=== PATIENT | female | born 1930 | race Caucasian/White ===

== ENCOUNTER → 2017-05-03 | Outpatient (CLI) | payer MEDICARE ==
[~2017-05-03] MED LIST: ALEVE220 M1 PO; AMLODIPINE BESY10 MG PO; AMLODIPINE BESYL5 MG PO; ASA325 PO; FLECAINIDE ACE100 MG PO; IBUPROFEN200 MG PO; LEVOTHYROXINE75 MCG PO; LOSARTAN POTASS25 MG PO; METOPROLOL SUCC50 MG PO; NORCO 7.5-3251 EACH PO; OMEPRAZOLE20 M1 PO; QUESTRAN PACKET4 GM PO; SUCRALFATE1 G/10 ML NG; ULTRAM50 MG PO; XARELTO10 MG PO
[2017-05-03 15:26] LABS: BILIRUBIN,URINE 1+ (NEGATIVE); CLARITY,URINE CLOUDY (CLEAR); KETONES,URINE NEGATIVE (NEGATIVE); LEUKOCYTE ESTERASE ,URINE 2+ (NEGATIVE); URINE UROBILINOGEN 1 mg/dL (0.2 - 1)
[2017-05-03 15:30] LABS: COLOR,URINE ORANGE (YELLOW); NITRITE,URINE POSITIVE (NEGATIVE); PROTEIN,URINE DIPSTICK TRACE (NEGATIVE)
[2017-05-03 15:32] LABS: BACTERIA,URINE MANY /HPF; EPITHELIAL CELLS,URINE FEW /LPF; WBC,URINE (MAN) 21-50 /HPF (0-5)
== END ==
LOC: LAB 14:50
PROVIDERS: ATTEND Internal Medicine
DX: N39.0 Urinary tract infection, site not specified (principal)
CPT/HCPCS: 81001; 87086; 87186

== ENCOUNTER → 2017-07-21 | Outpatient (CLI) | payer MEDICARE ==
[2017-07-21 14:43] LABS: BASOPHILS % 0.6 % (0.0-1.0); EOSINOPHILS # (AUTO) 0.1 (0.0-0.4); EOSINOPHILS % 1.7 % (0.0-6.0); HEMATOCRIT 36.8 % (34.2-44.1); HEMOGLOBIN 11.7 g/dL (12.0-16.0); LYMPHOCYTES # (AUTO) 1.2 (1.0-3.2); LYMPHOCYTES % 18.8 % (18.0-39.1); MEAN CORPUSCULAR HEMOGLOBIN 29.5 pg (28-32); MEAN CORPUSCULAR HGB CONC 31.8 g/dL (31-35); MEAN CORPUSCULAR VOLUME 92.7 fL (81-99); MONOCYTES # (AUTO) 0.5 (0.2-0.8); MONOCYTES % 7.6 % (4.4-11.3); NEUTROPHILS # (AUTO) 4.6 (2.1-6.9); PLATELET COUNT 178 x10e3/uL (140-360); RED BLOOD COUNT 3.97 x10e6/uL (3.6-5.1); RED CELL DISTRIBUTION WIDTH 13.8 % (11.7-14.4)
[2017-07-21 14:58] LABS: ALANINE AMINOTRANSFERASE 6 IU/L (0-55); ALBUMIN 3.6 g/dL (3.5-5.0); ALBUMIN/GLOBULIN RATIO 1.2 (0.8-2.0); ALKALINE PHOSPHATASE 62 IU/L (40-150); ANION GAP 8.8 mmol/L (8-16); BLOOD UREA NITROGEN 19 mg/dL (7-26); BUN/CREATININE RATIO 23 (6-25); CALCIUM 9.5 mg/dL (8.4-10.2); CARBON DIOXIDE 28 mmol/L (22-29); CHLORIDE 107 mmol/L (98-107); CHOL/HDL RATIO 2.6 (3.0-3.6); CHOLESTEROL 206 MD/DL (0-199); CREATININE, SERUM 0.81 mg/dL (0.57-1.11); EST GLOMERULAR FILTRATION RATE > 60 ML/MIN (60-); GLUCOSE 127 mg/dL (74-118); HDL CHOLESTEROL 78 MG/DL (40-60); LDL CHOLESTEROL 104 MG/DL (60-130); POTASSIUM 3.8 mmol/L (3.5-5.1); SODIUM 140 mmol/L (136-145); TRIGLYCERIDES 121 MG/DL (0-149)
[2017-07-21 15:17] LABS: THYROID STIMULATING HORMONE 0.404 uIU/mL (0.350-4.940)
== END ==
LOC: LAB 12:46
PROVIDERS: ATTEND Internal Medicine
DX: K21.9 Gastro-esophageal reflux disease without esophagitis (principal); E03.9 Hypothyroidism, unspecified; I10 Essential (primary) hypertension
CPT/HCPCS: 36415; 80053; 80061; 82270; 84443; 85025

== ENCOUNTER → 2017-08-16 | Outpatient (CLI) | payer MEDICARE ==
[2017-08-16 11:41] LABS: BILIRUBIN,URINE NEGATIVE (NEGATIVE); CLARITY,URINE CLEAR (CLEAR); COLOR,URINE YELLOW (YELLOW); KETONES,URINE NEGATIVE (NEGATIVE); LEUKOCYTE ESTERASE ,URINE 2+ (NEGATIVE); NITRITE,URINE NEGATIVE (NEGATIVE); PROTEIN,URINE DIPSTICK 1+ (NEGATIVE); URINE UROBILINOGEN 0.2 mg/dL (0.2 - 1)
== END ==
LOC: LAB 10:59
PROVIDERS: ATTEND Internal Medicine
DX: N39.0 Urinary tract infection, site not specified (principal)
CPT/HCPCS: 81003

== ENCOUNTER → 2017-09-13 | Outpatient (CLI) | payer MEDICARE ==
--- NOTE | 2017-09-13 13:07 | Diagnostic Imaging Report ---
PROCEDURE:ABDOMEN-1VIEW (KUB) TECHNIQUE:Supine AP abdomen INDICATION:Calculus of kidney COMPARISON:Patients [facility], DX, ABDOMEN-1VIEW (KUB), 11/25/2016, 11:09. FINDINGS: See conclusion. CONCLUSION: 1. No conspicuous calcifications overlying the kidneys or ureters. 2. Large volume of stool. Nonobstructive pattern. 3. Severe multilevel degenerative disc disease. Dictated by: Julio Esteves M.D. on 09/13/2017 at 13:09 Electronically approved by: Julio Esteves M.D. on 09/13/2017 at 13:09
== END ==
LOC: RAD 12:15
PROVIDERS: ATTEND Urology
DX: N20.0 Calculus of kidney (principal)
CPT/HCPCS: 74018

== ENCOUNTER → 2017-12-07 | Outpatient (CLI) | payer MEDICARE ==
--- NOTE | 2017-12-07 11:47 | Diagnostic Imaging Report ---
PROCEDURE:X-RAY ABDOMEN - KUB COMPARISON:Multiple prior abdominal radiographs, most recently 09/13/2017. INDICATIONS:CALCULUS OF KIDNEY FINDINGS: No dilated loops of bowel or abnormal air-fluid levels patterns. No evidence of pneumoperitoneum. No definite calcifications are seen overlying the urinary system. Small calcifications overlie the pelvis are stable and likely represent phleboliths. Severe multilevel degenerative changes of the lower lumbar spine, unchanged. CONCLUSION: Nonobstructive bowel gas pattern. No radiopaque renal or ureteral stones. Dictated by: Cain Delong M.D. on 12/07/2017 at 11:53 Electronically approved by: Cain Delong M.D. on 12/07/2017 at 11:53
== END ==
LOC: RAD 11:12
PROVIDERS: ATTEND Urology
DX: N20.0 Calculus of kidney (principal)
CPT/HCPCS: 74018

== ENCOUNTER → 2018-03-14 | Outpatient (CLI) | payer MEDICARE ==
--- NOTE | 2018-03-14 13:44 | Diagnostic Imaging Report ---
Exam: KUB. Clinical History: Calculus of kidney Comparison: CT scan April 28, 2013 Findings: Frontal view of the abdomen demonstrates a nonobstructive bowel gas pattern with moderate retained stool. There are no suspicious calcifications. No acute bone abnormality. Impression: No urinary tract calcifications are seen. Signed by: Dr. Remi Hurtado M.D. on 03/14/2018 1:41 PM
== END ==
LOC: RAD 12:54
PROVIDERS: ATTEND Urology
DX: N20.0 Calculus of kidney (principal)
CPT/HCPCS: 74018

== ENCOUNTER → 2018-10-05 | Outpatient (CLI) | payer MEDICARE ==
[2018-10-05 14:23] LABS: BASOPHILS % 0.6 % (0.0-1.0); EOSINOPHILS # (AUTO) 0.1 (0.0-0.4); EOSINOPHILS % 2.2 % (0.0-6.0); HEMATOCRIT 31.1 % (34.2-44.1); LYMPHOCYTES # (AUTO) 0.9 (1.0-3.2); LYMPHOCYTES % 17.5 % (18.0-39.1); MEAN CORPUSCULAR HEMOGLOBIN 29.4 pg (28-32); MEAN CORPUSCULAR HGB CONC 32.2 g/dL (31-35); MEAN CORPUSCULAR VOLUME 91.5 fL (81-99); MONOCYTES # (AUTO) 0.5 (0.2-0.8); MONOCYTES % 9.1 % (4.4-11.3); NEUTROPHILS # (AUTO) 3.5 (2.1-6.9); NEUTROPHILS % 69.8 % (38.7-80.0); PLATELET COUNT 223 x10e3/uL (140-360); RED CELL DISTRIBUTION WIDTH 21.3 % (11.7-14.4)
[2018-10-05 14:30] LABS: CLARITY,URINE SL CLOUDY (CLEAR); COLOR,URINE STRAW (YELLOW); NITRITE,URINE NEGATIVE (NEGATIVE); PROTEIN,URINE DIPSTICK 1+ (NEGATIVE); URINE UROBILINOGEN 0.2 mg/dL (0.2 - 1)
[2018-10-05 14:32] LABS: BILIRUBIN,URINE NEGATIVE (NEGATIVE); KETONES,URINE NEGATIVE (NEGATIVE)
[2018-10-05 14:46] LABS: ALANINE AMINOTRANSFERASE 11 IU/L (0-55); ALBUMIN 2.9 g/dL (3.5-5.0); ALKALINE PHOSPHATASE 82 IU/L (40-150); BLOOD UREA NITROGEN 13 mg/dL (7-26); BUN/CREATININE RATIO 17 (6-25); CALCIUM 9.5 mg/dL (8.4-10.2); CARBON DIOXIDE 26 mmol/L (22-29); CHLORIDE 102 mmol/L (98-107); CREATININE, SERUM 0.75 mg/dL (0.57-1.11); EST GLOMERULAR FILTRATION RATE > 60 ML/MIN (60-); GLUCOSE 108 mg/dL (74-118); SODIUM 135 mmol/L (136-145)
[2018-10-05 14:50] LABS: BACTERIA,URINE MANY /HPF; EPITHELIAL CELLS,URINE FEW /LPF; LEUKOCYTE ESTERASE ,URINE LARGE (NEGATIVE); RBC,URINE 0-5 /HPF (0-5); TRANSITIONAL EPI CELLS,URINE MODERATE; WBC,URINE (MAN) 21-50 /HPF (0-5)
[2018-10-05 15:07] LABS: FREE THYROXINE INDEX 3.5153 (1.4-3.8); THYROID STIMULATING HORMONE 0.287 uIU/mL (0.350-4.940)
--- NOTE | 2018-10-05 16:40 | Diagnostic Imaging Report ---
Exam: KUB; 2 views History: History of renal stones Comparison: 03/14/2018 Findings: Bowel gas pattern is nonspecific. No dilatation is seen. Moderate fecal material is present. No calcified renal stones are seen. Degenerative changes of the spine are moderate to severe. Impression: Nonspecific abdominal series. Signed by: Dr. Antoine Chatman DO on 10/05/2018 4:37 PM
== END ==
LOC: RAD 13:53
PROVIDERS: ATTEND Urology
DX: N20.0 Calculus of kidney (principal)
CPT/HCPCS: 36415; 74018; 80053; 81001; 84436; 84443; 84479; 85025

== ENCOUNTER 2018-11-04 20:22 | Emergency (ER) | payer MEDICARE, OTHER ==
[~2018-11-04] VITALS: Ht 160 cm; Wt 76.2 kg
--- OUTSIDE RECORDS SUMMARY | 2018-11-04 20:29 | XMS REPORT | Continuity of Care Document ---
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 [place] [place] ACUTE EMBOLISM AND THROMBOSIS OF LEFT FE Active [facility] OTHER PULMONARY EMBOLISM WITHOUT ACUTE C Active [facility] Medications Medication Details Route Status Patient Instructions Ordering Provider Order Date Source pantoprazole 40 mg oral enteric coated tablet 40 mg=1 tab, PO, Daily, 0 Refill(s) Active 10/22/2018 [facility] apixaban 5 mg oral tablet 5 mg=1 tab, PO, Q12H, # 60 tab, 2 Refill(s), Pharmacy: [facility] [id number] Active 10/22/2018 [facility] Eliquis 5 mg, 1 tab, Route: PO, Drug form: TAB, Q12H, Dosing Weight 59.091, kg, Start date: 10/21/18 21:00:00 CDT, Duration: 30 day, Stop date: 11/20/18 9:00:00 CDT, 0Notes: Same as: Eliquis No Longer Active 10/22/2018 [facility] Omeprazole 20 mg, Route: PO, Drug form: ECTAB, Daily, Dosing Weight 59.091, kg, Start date: 10/21/18 9:00:00 CDT, Duration: 30 day, Stop date: 11/19/18 9:00:00 CDT No Longer Active 10/21/2018 [facility] metoprolol extended release 50 mg, 1 tab, Route: PO, Drug form: ERTAB, Daily, Start date: 10/21/18 9:00:00 CDT, Duration: 30 day, Stop date: 11/19/18 9:00:00 CDT, 0Notes: (Same as: Toprol XL) May split tab, but do not crush. No Longer Active 10/21/2018 [facility] Docusate 100 mg, 1 cap, Route: PO, Drug form: CAP, BID, Dosing Weight 59.091, kg, Start date: 10/21/18 9:00:00 CDT, Duration: 30 day, Stop date: 11/19/18 17:00:00 CDT, 0Notes: (Same as: Colace) (Do Not Crush) No Longer Active 10/21/2018 [facility] Losartan 100 mg, 2 tab, Route: PO, Drug form: TAB, Daily, Dosing Weight 59.091, kg, Start date: 10/21/18 9:00:00 CDT, Duration: 30 day, Stop date: 11/19/18 9:00:00 CDT, 0Notes: (Same as: Cozaar) No Longer Active 10/21/2018 [facility] Hydralazine Hydrochloride 50 MG Oral Tablet 50 mg, 1 tab, Route: PO, Drug form: TAB, BID, Dosing Weight 59.091, kg, Start date: 10/21/18 9:00:00 CDT, Duration: 30 day, Stop date: 11/19/18 17:00:00 CDT, 0Notes: (Same as: Apresoline) May interfere w/enteral feedings Take With Food No Longer Active 10/21/2018 [facility] Protonix 40 mg, 1 tab, Route: PO, Drug form: ECTAB, Daily, Start date: 10/21/18 9:00:00 CDT, Duration: 30 day, Stop date: 11/19/18 9:00:00 CDT, 0Notes: Tablet should not be chewed or crushed. (Same as: Protonix) No Longer Active 10/21/2018 [facility] Thyroxine 100 microgram, 1 tab, Route: PO, Drug form: TAB, [id number], Dosing Weight 59.091, kg, Start date: 10/21/18 6:30:00 CDT, Duration: 30 day, Stop date: 11/19/18 6:30:00 CDT, 0Notes: Take 1 hour before or 2 hours after meal; Enteral feeds may interefere with the absorption of this medication. (Same as:Levothroid, Synthroid) No Longer Active 10/21/2018 [facility] Lovenox 60 mg, 0.6 mL, Route: SUB-Q, Drug form: INJ, [id number], Dosing Weight 59.091, kg, Start date: 10/21/18 6:00:00 CDT, Duration: 30 day, Stop date: 11/19/18 18:00:00 CDT, 0Notes: Nurse to ensure documentation of patient education per anticoagulation policy. (Same as: Lovenox) Inactive 10/21/2018 [facility] Dextrose 50% Syringe 25 gm, 50 mL, Route: IVP, Drug Form: INJ, Dosing Weight 59.091, kg, PRN, PRN Blood Glucose Results, Start date: 10/20/18 18:08:00 CDT, Duration: 30 day, Stop date: 11/19/18 18:07:00 CDT, 0 No Longer Active 10/20/2018 [facility] Glucagon 1 mg, Route: IM, Drug form: PDR/INJ, PRN, Dosing Weight 59.091, kg, PRN Blood Glucose Results, Start date: 10/20/18 18:08:00 CDT, Duration: 30 day, Stop date: 11/19/18 18:07:00 CDT, 0 No Longer Active 10/20/2018 [facility] Ondansetron 4 mg, 2 mL, Route: IVP, Drug form: INJ, Q8H, Dosing Weight 59.091, kg, PRN Nausea & Vomiting, Start date: 10/20/18 18:08:00 CDT, Duration: 30 day, Stop date: 11/19/18 18:07:00 CDT, 0Notes: (Same as: Zofran) MEDICATION WASTE Product Size: 4 mg Product Wasted: ___ mg No Longer Active 10/20/2018 [facility] Acetaminophen 650 mg, 2 tab, Route: PO, Drug form: TAB, Q4H, Dosing Weight 59.091, kg, PRN Pain 1-3/Temp > 100.4 F, Start date: 10/20/18 18:08:00 CDT, Duration: 30 day, Stop date: 11/19/18 18:07:00 CDT, 0Notes: Do not exceed 4 gm/day. (Same as: Tylenol) No Longer Active 10/20/2018 [facility] Lovenox 60 mg, 0.6 mL, Route: SUB-Q, Drug form: INJ, ONCE, Dosing Weight 59.091, kg, Priority: STAT, Start date: 10/20/18 17:28:00 CDT, Stop date: 10/20/18 17:28:00 CDT, 0Notes: Nurse to ensure documentation of patient education per anticoagulation policy. (Same as: Lovenox) Inactive 10/20/2018 [facility] tramadol hydrochloride 50 MG Oral Tablet 50 mg=1 tab, PO, Q6H, PRN Pain, X 5 day, # 20 tab, 0 Refill(s) Active 06/03/2018 [facility] Amoxicillin 50 MG/ML / Clavulanate 12.5 MG/ML Oral Suspension [Augmentin] 10 mL, PO, Q8H, # 90 mL, 0 Refill(s) No Longer Active 06/02/2018 [facility] acetaminophen 160 mg/5 mL oral suspension 640 mg=20 mL, PO, Q6H, PRN Pain Score 1-3, # 480 mL, 0 Refill(s) Active 06/02/2018 [facility] Amlodipine 2.5 mg, 1 tab, Route: PO, Drug form: TAB, Daily, Dosing Weight 80.364, kg, Start date: 05/31/18 14:54:00 HOST/HOSTESS HEAD, Duration: 30 day, Stop date: 06/30/18 9:00:00 CSTNotes: (Same as: Norvasc) No Longer Active 05/31/2018 [facility] Dextrose 50% Syringe 12.5 gm, 25 mL, Route: IVP, Drug Form: INJ, Dosing Weight 80.364, kg, PRN, PRN Blood Glucose Results, Start date: 05/31/18 8:16:00 HOST/HOSTESS HEAD, Duration: 30 day, Stop date: 06/30/18 8:15:00 HOST/HOSTESS HEAD No Longer Active 05/31/2018 [facility] Insulin Lispro 5 unit, 0.05 mL, Route: SUB-Q, Drug form: SOLN, Sliding Scale, Dosing Weight 80.364, kg, PRN Blood Glucose Results, Start date: 05/31/18 8:16:00 HOST/HOSTESS HEAD, Duration: 30 day, Stop date: 06/30/18 8:15:00 HOST/HOSTESS HEAD Notes: (Same as: Humalog ) Roll in palms of hands gently; Do not shake `vigorously. "Single Patient Use Only " WASTE: F/P - Black; E - Municipal Trash Bin Stable for 28 days at room temperature. Expires in days from Date No Longer Active 05/31/2018 [facility] Glucagon 1 mg, Route: IM, Drug form: PDR/INJ, PRN, Dosing Weight 80.364, kg, PRN Blood Glucose Results, Start date: 05/31/18 8:16:00 HOST/HOSTESS HEAD, Duration: 30 day, Stop date: 06/30/18 8:15:00 HOST/HOSTESS HEAD No Longer Active 05/31/2018 [facility] D5W 1,000 mL 1,000 mL, Rate: 75 ml/hr, Infuse over: 13.3 hr, Route: IV, Dosing Weight 80.364 kg, Total Volume: 1,000, Start date: 05/31/18 8:11:00 HOST/HOSTESS HEAD, Duration: 30 day, Stop date: 06/30/18 8:10:00 HOST/HOSTESS HEAD, 1.92, m2 Inactive 05/31/2018 [facility] guar gum oral powder (NutriSource) 4 gm, 1 pkt, Route: PO, Drug Form: PCKT, Dosing Weight 80.364, kg, TID, Start date: 05/30/18 17:00:00 HOST/HOSTESS HEAD, Duration: 30 day, Stop date: 06/29/18 13:00:00 CSTNotes: (Same as: Nutrisource Fiber) Dissolve packet in at least 4 oz (120 mL) of water and stir until completely dissolved before administering down the feeding tube. No Longer Active 05/30/2018 [facility] Prevacid 30 mg, 10 mL, Route: DHT, Drug form: SUSP, Daily, Start date: 05/30/18 12:00:00 HOST/HOSTESS HEAD, Duration: 30 day, Stop date: 06/29/18 9:00:00 CSTNotes: Take 1 hour before or 2 hours after meal; Expires in 14 days. Shake well before use. (Same as:Prevacid) Compounded Product - formulation not commercially available No Longer Active 05/30/2018 [facility] Omeprazole 20 mg, Route: DHT, Daily, Dosing Weight 80.364, kg, Start date: 05/30/18 9:00:00 HOST/HOSTESS HEAD, Duration: 30 day, Stop date: 06/28/18 9:00:00 HOST/HOSTESS HEAD Inactive 05/30/2018 [facility] potassium chloride 20 mEq oral tablet, extended release 40 mEq, 30 mL, Route: DHT, Drug form: LIQ, ONCE, Dosing Weight 80.364, kg, Start date: 05/30/18 8:31:00 HOST/HOSTESS HEAD, Stop date: 05/30/18 8:31:00 CSTNotes: (Same as: Potassium Chloride) Inactive 05/30/2018 [facility] Beneprotein 7 gm pkt 2 pkt, Route: T FEED, Drug Form: PWDR, Dosing Weight 80.364, kg, BID, Start date: 05/29/18 17:00:00 HOST/HOSTESS HEAD, Duration: 30 day, Stop date: 06/28/18 9:00:00 CSTNotes: (Same as: Beneprotein) No Longer Active 05/29/2018 [facility] metoprolol 50 mg oral tablet, extended release 50 mg=1 tab, PO, Daily, 0 Refill(s) Active 05/29/2018 [facility] potassium chloride 40 mEq, 30 mL, Route: PO, Drug form: LIQ, ONCE, Dosing Weight 80.364, kg, Start date: 05/29/18 9:18:00 HOST/HOSTESS HEAD, Stop date: 05/29/18 9:18:00 CSTNotes: (Same as: Potassium Chloride) Inactive 05/29/2018 [facility] potassium chloride 20 mEq oral tablet, extended release 40 mEq, 2 tab, Route: PO, Drug form: ERTAB, ONCE, Dosing Weight 80.364, kg, Start date: 05/29/18 8:19:00 HOST/HOSTESS HEAD, Stop date: 05/29/18 8:19:00 CSTNotes: (Same as: K- Dur 20) "Do Not Crush" Give with food and full glass of water For patients unable to swallow tablet, dissolve in one half glass of water. Allow about 2 minutes for the tablets to disintegrate. Stir before giving to prepare slurry an d administer. Please exclude Patients with feeding tube less than 14 [place] (Dobhoff, J-tube etc) and pediatric and patients. Inactive 05/29/2018 [facility] normal saline 0.9% IV 1,000 mL 1,000 mL, Rate: 50 ml/hr, Infuse over: 20 hr, Route: IV, Dosing Weight 80.364 kg, Total Volume: 1,000, Start date: 05/29/18 6:57:00 HOST/HOSTESS HEAD, Duration: 30 day, Stop date: 06/28/18 6:56:00 HOST/HOSTESS HEAD, 1.92, m2 No Longer Active 05/29/2018 [facility] Lopressor 25 mg, 1 tab, Route: PO, Drug form: TAB, BID, Start date: 05/28/18 21:00:00 HOST/HOSTESS HEAD, Duration: 30 day, Stop date: 06/27/18 9:00:00 CSTNotes: (Same as: Lopressor) No Longer Active 05/29/2018 [facility] PHOS-NaK 1 pkt, Route: DHT, Drug Form: PDR/REC, Dosing Weight 80.364, kg, TID-Before Meals, Start date: 05/28/18 11:30:00 HOST/HOSTESS HEAD, Duration: 30 day, Stop date: 06/27/18 7:30:00 CSTNotes: (Same as: Phos-NaK) Each 1.5 gm pkt has 250mg phosphorous. Mix w/2.5oz water and stir. No Longer Active 05/28/2018 [facility] Losartan 100 mg, 2 tab, Route: PO, Drug form: TAB, Daily, Dosing Weight 80.364, kg, Start date: 05/28/18 9:00:00 HOST/HOSTESS HEAD, Duration: 30 day, Stop date: 06/26/18 9:00:00 CSTNotes: (Same as: Cozaar) No Longer Active 05/28/2018 [facility] metoprolol extended release 50 mg, 1 tab, Route: PO, Drug form: ERTAB, Daily, Start date: 05/28/18 9:00:00 HOST/HOSTESS HEAD, Duration: 30 day, Stop date: 06/26/18 9:00:00 CSTNotes: (Same as: Toprol XL) May split tab, but do not crush. No Longer Active 05/28/2018 [facility] potassium phosphate 20 mmol, Route: DHT, ONCE, Dosing Weight 80.364, kg, Start date: 05/27/18 9:27:00 HOST/HOSTESS HEAD, Stop date: 05/27/18 9:27:00 HOST/HOSTESS HEAD Inactive 05/27/2018 [facility] Protonix 40 mg, 1 pkt, Route: PO, Drug form: GRAN/REC, Before Dinner, Dosing Weight 80.364, kg, Start date: 05/26/18 16:30:00 HOST/HOSTESS HEAD, Duration: 30 day, Stop date: 06/24/18 16:30:00 HOST/HOSTESS HEAD No Longer Active 05/26/2018 [facility] iodixanol 70 mL, Route: IVP, Drug Form: SOLN, Dosing Weight 80.364, kg, ONCALL, STAT, Start date: 05/26/18 16:12:00 HOST/HOSTESS HEAD, Duration: 1 doses or times, Stop date: 05/27/18 0:00:00 HOST/HOSTESS HEAD, Dose=2.2ml/kg, Max ijdc=182yd -- "To be infused by Radiology Staff ONLY"Notes: (Same as: Visipaque). WASTE: F/P - Black; E - Municipal Trash Bin No Longer Active 05/26/2018 [facility] Unasyn 3 gm, Route: IVPB, Drug form: PDR/INJ, [id number], Dosing Weight 80.364, kg, Priority: NOW, Start date: 05/26/18 15:01:00 HOST/HOSTESS HEAD, Duration: 30 day, Stop date: 06/25/18 8:00:00 CSTNotes: Dosing based on Ampicillin component (Same as: Unasyn) No Longer Active 05/26/2018 [facility] Unasyn 3 gm, Route: IVPB, [id number], Dosing Weight 80.364, kg, Start date: 05/26/18 14:00:00 HOST/HOSTESS HEAD, Duration: 30 day, Stop date: 06/25/18 2:00:00 HOST/HOSTESS HEAD Inactive 05/26/2018 [facility] Losartan 100 mg, 2 tab, Route: PO, Drug form: TAB, Daily, Dosing Weight 80.364, kg, Start date: 05/26/18 13:21:00 HOST/HOSTESS HEAD, Duration: 30 day, Stop date: 06/25/18 9:00:00 CSTNotes: (Same as: Cozaar) No Longer Active 05/26/2018 [facility] metoprolol extended release 50 mg, 1 tab, Route: PO, Drug form: ERTAB, Daily, Start date: 05/26/18 13:21:00 HOST/HOSTESS HEAD, Duration: 30 day, Stop date: 06/25/18 9:00:00 CSTNotes: (Same as: Toprol XL) No Longer Active 05/26/2018 [facility] Furosemide 20 mg, 2 mL, Route: IVP, Drug form: INJ, ONCE, Dosing Weight 80.364, kg, Start date: 05/26/18 13:11:00 HOST/HOSTESS HEAD, Stop date: 05/26/18 13:11:00 CSTNotes: (Same as: Lasix) Inactive 05/26/2018 [facility] Tylenol 650 mg, 20.3 mL, Route: PO, Drug form: LIQ, Q6H, Dosing Weight 80.364, kg, PRN Pain 1-3/Temp > 100.4 F, Start date: 05/26/18 9:00:00 HOST/HOSTESS HEAD, Duration: 30 day, Stop date: 06/25/18 8:59:00 CSTNotes: Max oqdzfldfdzvxo=1040tu/day (4 gm/day). (Same as: Tylenol) No Longer Active 05/26/2018 [facility] potassium phosphate-sodium phosphate 250 mg-280 mg-160 mg oral powder for reconstitution 2 pkt, Route: PO, Drug Form: PDR/REC, Dosing Weight 80.364, kg, Q8H, Start date: 05/25/18 16:00:00 HOST/HOSTESS HEAD, Duration: 2 day, Stop date: 05/27/18 8:00:00 CSTNotes: (Same as: Phos-NaK) Each 1.5 gm pkt has 250mg phosphorous. Mix w/2.5oz water and stir. No Longer Active 05/25/2018 [facility] glycerin adult rectal suppository 1 supp, Route: [place], Drug Form: SUPP, Dosing Weight 80.364, kg, ONCE, NOW, Start date: 05/25/18 10:36:00 HOST/HOSTESS HEAD, Stop date: 05/25/18 10:36:00 HOST/HOSTESS HEAD Inactive 05/25/2018 [facility] pantoprazole additive 80 mg + Sodium Chloride 0.9% IV 100 mL 100 mL, Rate: 10 ml/hr, Infuse over: 10 hr, Route: IVPB, Dosing Weight 80.364 kg, Total Volume: 100, Infuse at 8 mg/hr for 72 hrs for GI bleeding, Start date: 05/25/18 10:17:00 HOST/HOSTESS HEAD, Duration: 72 hr, Stop date: 05/28/18 10:16:00 HOST/HOSTESS HEAD, 1.92, m2 No Longer Active 05/25/2018 [facility] pantoprazole 80 mg, Route: IV, ONCE, Dosing Weight 80.364, kg, Start date: 05/25/18 10:16:00 HOST/HOSTESS HEAD, Stop date: 05/25/18 10:16:00 HOST/HOSTESS HEAD, > 40 kg; loading dose; Pediatric Dosing Inactive 05/25/2018 [facility] vancomycin + Sodium Chloride 0.9% IV 250 mL 1.25 gm, Route: IV, [id number], Dosing Weight 80.364, kg, Start date: 05/25/18 5:00:00 HOST/HOSTESS HEAD, Duration: 30 day, Stop date: 06/23/18 5:00:00 HOST/HOSTESS HEAD, ABX Indication: ED - Suspected SepsisNotes: TIME CRITICAL MEDICATION (Same As: Vancocin) Infusion rate 2001 mg: infuse over 2.5 hours For adult patients only: Round to nearest 250 mg per Medical Staff approval MEDICATION WASTE Product Size: 1000 mg Product Wasted: ___ mg No Longer Active 05/25/2018 [facility] cefepime 1 gm, Route: IVP, Drug form: INJ, [id number], Dosing Weight 80.364, kg, (CrCl >/=50 ml/min), Start date: 05/24/18 22:00:00 HOST/HOSTESS HEAD, Duration: 7 day, Stop date: 05/31/18 14:00:00 HOST/HOSTESS HEAD, ABX Indication: Skin/Soft Tissue InfectionNotes: (Same As: Maxipime) MEDICATION WASTE Product Size: 1000 mg Product Wasted: ___ mg No Longer Active 05/25/2018 [facility] vancomycin 1 gm, Route: IVPB, Drug form: INJ, [id number], Start date: 05/24/18 21:00:00 HOST/HOSTESS HEAD, Duration: 7 day, Stop date: 05/31/18 9:00:00 HOST/HOSTESS HEAD, ABX Indication: Surgical ProphylaxisNotes: TIME CRITICAL MEDICATION (Same As: Vancocin) Infusion rate 2001 mg: infuse over 2.5 hours For adult patients only: Round to nearest 250 mg per Medical Staff approval MEDICATION WASTE Product Size: 1000 mg Product Wasted: _0__ mg Inactive 05/25/2018 [facility] Vancomycin 1,000 mg, Route: IVPB, Drug form: INJ, [id number], Dosing Weight 80.364, kg, Start date: 05/24/18 20:00:00 HOST/HOSTESS HEAD, Duration: 7 day, Stop date: 05/31/18 8:00:00 HOST/HOSTESS HEAD, ABX Indication: Surgical Prophylaxis Inactive 05/25/2018 [facility] Sodium Chloride 0.9% (titrate) 250 mL 250 mL, Rate: To prime line and flush remaining blood products., Dosing Weight 80.364, kg, Route: IV, Total Volume: 250, Start Date: 05/24/18 17:08:00 HOST/HOSTESS HEAD, Duration: 30 day, Stop date: 06/23/18 17:07:00 HOST/HOSTESS HEAD, Replace Every: 24 hr No Longer Active 05/24/2018 [facility] Calcium Chloride 0.0014 MEQ/ML / Potassium Chloride 0.004 MEQ/ML / Sodium Chloride 0.103 MEQ/ML / Sodium Lactate 0.028 MEQ/ML Injectable Solution 500 mL, 500 ml/hr, Infuse Over: 1 hr, Route: IV, 500, Drug form: INJ, ONCE, Priority: STAT, Dosing Weight 80.364 kg, Start date: 05/24/18 13:17:00 HOST/HOSTESS HEAD, Stop date: 05/24/18 13:17:00 HOST/HOSTESS HEAD Inactive 05/24/2018 [facility] Isolyte S PH-7.4 (Bolus) IV 500 mL, 0 ml/hr, Infuse Over: 0 hr, Route: IV, 500, Drug form: SOLN, ONCE, Dosing Weight 80.364 kg, Start date: 05/24/18 13:10:00 HOST/HOSTESS HEAD, Stop date: 05/24/18 13:10:00 CSTNotes: (Same as: Isolyte S PH7.4) Inactive 05/24/2018 [facility] Albumin 25% intravenous solution (HC) 25 gm, 100 mL, Route: IV, Drug form: INJ, Q4Hnow, Dosing Weight 80.364, kg, Start date: 05/24/18 13:00:00 HOST/HOSTESS HEAD, Duration: 6 doses or times, Stop date: 05/25/18 10:00:00 CSTNotes: Lot #: Mfg: (Same as: Plasbumin-25) "blood product derivative" WASTE: F/P - Red; E -Red MEDICATION WASTE Product Size: 25 gm Product Wasted: _0__ gm No Longer Active 05/24/2018 [facility] tramadol hydrochloride 50 MG Oral Tablet 50 mg, 1 tab, Route: PO, Drug form: TAB, Q12H, Dosing Weight 80.364, kg, Start date: 05/24/18 12:34:00 HOST/HOSTESS HEAD, Duration: 2 day, Stop date: 05/26/18 9:00:00 HOST/HOSTESS HEAD No Longer Active 05/24/2018 [facility] Phenergan 12.5 mg, 0.5 mL, Route: IVPB, Drug form: INJ, ONCE, Dosing Weight 80.364, kg, Start date: 05/24/18 12:28:00 HOST/HOSTESS HEAD, Stop date: 05/24/18 12:28:00 CSTNotes: Do not give IV push. (Same as: Phenergan) Inactive 05/24/2018 [facility] Phenergan 12.5 mg, 0.5 mL, Route: IVPB, Drug form: INJ, Q4H, Dosing Weight 80.364, kg, PRN Nausea & Vomiting, Start date: 05/24/18 12:27:00 HOST/HOSTESS HEAD, Duration: 30 day, Stop date: 06/23/18 12:26:00 CSTNotes: Do not give IV push. (Same as: Phenergan) No Longer Active 05/24/2018 [facility] Thiamine 500 mg, 5 mL, Route: IVPB, Daily, Dosing Weight 80.364, kg, Priority: NOW, Start date: 05/24/18 10:18:00 HOST/HOSTESS HEAD, Duration: 5 doses or times, Stop date: 05/28/18 9:00:00 CSTNotes: (Same As: Vitamin B1) No Longer Active 05/24/2018 [facility] Acetaminophen 1,000 mg, 31.23 mL, Route: NG, Drug form: LIQ, Q6Hnow, Dosing Weight 80.364, kg, Start date: 05/24/18 9:00:00 HOST/HOSTESS HEAD, Duration: 2 day, Stop date: 05/26/18 3:00:00 CSTNotes: Max umahiubqabaxa=9723jz/day (4 gm/day). (Same as: Tylenol) Inactive 05/24/2018 [facility] sennosides, FCI 17.6 mg, 10 mL, Route: NG, Drug Form: SYRP, Dosing Weight 71.364, kg, Q12H, Start date: 05/24/18 9:00:00 HOST/HOSTESS HEAD, Duration: 30 day, Stop date: 06/22/18 21:00:00 CSTNotes: (Same as: Senokot) No Longer Active 05/24/2018 [facility] docusate 100 mg, 10 mL, Route: NG, Drug form: LIQ, Q12H, Dosing Weight 71.364, kg, Start date: 05/24/18 9:00:00 HOST/HOSTESS HEAD, Duration: 30 day, Stop date: 06/22/18 21:00:00 CSTNotes: (Same as: Colace) No Longer Active 05/24/2018 [facility] lansoprazole 30 mg, 10 mL, Route: NG, Drug form: SUSP, Daily, Dosing Weight 71.364, kg, Start date: 05/24/18 9:00:00 HOST/HOSTESS HEAD, Duration: 30 day, Stop date: 06/22/18 9:00:00 CSTNotes: Take 1 hour before or 2 hours after m eal; Expires in 14 days. Shake well before use. (Same as:Prevacid) Compounded Product - formulation not commercially available Inactive 05/24/2018 [facility] chlorhexidine gluconate 1.2 MG/ML Mouthwash 15 mL, Route: Swab Mouth, Q12H, Drug form: LIQ, Start date: 05/24/18 9:00:00 HOST/HOSTESS HEAD, Duration: 30 day, Stop date: 06/22/18 21:00:00 CSTNotes: (Same As: Peridex) Inactive 05/24/2018 [facility] Aspirin 81 MG Chewable Tablet 324 mg, 4 tab, Route: PO, Drug form: CHEWTAB, Daily, Dosing Weight 71.364, kg, Start date: 05/24/18 9:00:00 HOST/HOSTESS HEAD, Duration: 30 day, Stop date: 06/22/18 9:00:00 CSTNotes: Take with food. No Longer Active 05/24/2018 [facility] Calcium Gluconate 2,000 mg, 20 mL, Route: IVPB, ONCE, Dosing Weight 80.364, kg, Start date: 05/24/18 8:15:00 HOST/HOSTESS HEAD, Stop date: 05/24/18 8:15:00 CSTNotes: WASTE: F/P - Sink; E - Municipal Trash Bin Inactive 05/24/2018 [facility] Flagyl 500 mg, 100 mL, Route: IVPB, Drug form: INJ, [id number], Dosing Weight 80.364, kg, Priority: STAT, Start date: 05/24/18 8:03:00 HOST/HOSTESS HEAD, Duration: 7 day, Stop date: 05/31/18 0:03:00 HOST/HOSTESS HEAD, ABX Indication: Skin/Soft Tissue Infection No Longer Active 05/24/2018 [facility] 250 ML Albumin Human, FCI 50 MG/ML Injection [Albuked] 25 gm, 500 mL, Route: IV, Drug form: INJ, ONCE, Dosing Weight 80.364, kg, Start date: 05/24/18 8:02:00 HOST/HOSTESS HEAD, Stop date: 05/24/18 8:02:00 CSTNotes: LOT#: Mfg: (Same as: Albuminar) "blood product derivative" WASTE: F/P - Red; E -Red MEDICATION WASTE Product Size: 25 gm Product Wasted: _0__ gm Inactive 05/24/2018 [facility] cefepime 1 gm, Route: IVP, Drug form: INJ, [id number], Dosing Weight 80.364, kg, (CrCl >/=50 ml/min), Start date: 05/24/18 8:00:00 HOST/HOSTESS HEAD, Duration: 7 day, Stop date: 05/31/18 2:00:00 HOST/HOSTESS HEAD, ABX Indication: Skin/Soft Tissue InfectionNotes: (Same As: Maxipime) MEDICATION WASTE Product Size: 1000 mg Product Wasted: _0__ mg Inactive 05/24/2018 [facility] Bacitracin 1 appl, Route: TOP, Q8H, Drug form: OINT, Start date: 05/24/18 8:00:00 HOST/HOSTESS HEAD, Duration: 30 day, Stop date: 06/23/18 0:00:00 HOST/HOSTESS HEAD No Longer Active 05/24/2018 [facility] Synthroid 100 microgram, 1 tab, Route: PO, Drug form: TAB, [id number], Dosing Weight 80.364, kg, Start date: 05/24/18 7:49:00 HOST/HOSTESS HEAD, Duration: 30 day, Stop date: 06/23/18 6:30:00 CSTNotes: Take 1 hour before or 2 hours after meal; Enteral feeds may interefere with the absorption of this medication. (Same as:Levothroid, Synthroid) No Longer Active 05/24/2018 [facility] lansoprazole 30 mg, 10 mL, Route: NG, Drug form: SUSP, Before Breakfast, Dosing Weight 71.364, kg, Start date: 05/24/18 7:30:00 HOST/HOSTESS HEAD, Duration: 30 day, Stop date: 06/22/18 7:30:00 CSTNotes: Take 1 hour before or 2 hours after meal; Expires in 14 days. Shake well before use. (Same as:Prevacid) Compounded Product - formulation not commercially available No Longer Active 05/24/2018 [facility] Vancomycin 1.75 gm, Route: IV, ONCE, Dosing Weight 80.364, kg, Start date: 05/24/18 7:18:00 HOST/HOSTESS HEAD, Stop date: 05/24/18 7:18:00 HOST/HOSTESS HEAD, ABX Indication: Surgical ProphylaxisNotes: TIME CRITICAL MEDICATION (Same As: Vanco nithin) Infusion rate 2001 mg: infuse over 2.5 hours For adult patients only: Round to nearest 250 mg per Medical Staff approval MEDICATION WASTE Product Size: 1000 mg Product Wasted: _250__ mg Inactive 05/24/2018 [facility] Vancomycin 1.5 gm, Route: IV, ONCE, Dosing Weight 80.364, kg, Start date: 05/24/18 7:16:00 HOST/HOSTESS HEAD, Stop date: 05/24/18 7:16:00 HOST/HOSTESS HEAD, ABX Indication: Surgical Prophylaxis Inactive 05/24/2018 [facility] Norepinephrine 8 mg, 8 mL, Rate: Titrate, Start Dose: 5 microgram/min, Titration: 2 microgram/min every 2-5 minutes, Goal(s): MAP >=65 mmHg, Max Dose: 70 microgram/min, Route: IV, Dosing Weight 80.364 kg, Total Vol ume: 250, Start date: 05/24/18 6:06:00 HOST/HOSTESS HEAD, Duratio...Notes: Not for direct administration - DILUTE. Protect from light. (Same as:Levophed). Administer by either central venous catheter or peripherally-inserted central catheter (PICC) line. No Longer Active 05/24/2018 [facility] Acetaminophen 1,000 mg, 31.23 mL, Route: NG, Drug form: LIQ, Q6H, Dosing Weight 80.364, kg, Start date: 05/24/18 6:00:00 HOST/HOSTESS HEAD, Duration: 2 day, Stop date: 05/26/18 0:00:00 CSTNotes: Max ilmsaauptjaly=[id number]/day (4 gm/day). (Same as: Tylenol) Inactive 05/24/2018 [facility] tramadol hydrochloride 50 MG Oral Tablet 50 mg, 1 tab, Route: PO, Drug form: TAB, Q6H, Dosing Weight 80.364, kg, Start date: 05/24/18 6:00:00 HOST/HOSTESS HEAD, Duration: 2 day, Stop date: 05/26/18 0:00:00 CSTNotes: Not to exceed 400mg/day. (Same As: Ultram) Inactive 05/24/2018 [facility] heparin sodium, porcine 2500 UNT/ML Injectable Solution 5,000 unit, 1 mL, Route: SUB-Q, Drug form: INJ, Q8H, Dosing Weight 71.364, kg, Start date: 05/24/18 6:00:00 HOST/HOSTESS HEAD, Duration: 30 day, Stop date: 06/23/18 0:00:00 CSTNotes: porcine heparin No Longer Active 05/24/2018 [facility] Vancomycin 1.25 gm, 250 mL, Route: IV, Drug form: INJ, [id number], Dosing Weight 80.364, kg, Start date: 05/24/18 5:00:00 HOST/HOSTESS HEAD, Duration: 30 day, Stop date: 06/22/18 5:00:00 HOST/HOSTESS HEAD, ABX Indication: ED - Suspected SepsisN otes: TIME CRITICAL MEDICATION Same as: Vancocin-NS (premixed) Infusion rate 2001 mg: infuse over 2.5 hours Inactive 05/24/2018 [facility] Calcium Chloride 0.0014 MEQ/ML / Potassium Chloride 0.004 MEQ/ML / Sodium Chloride 0.103 MEQ/ML / Sodium Lactate 0.028 MEQ/ML Injectable Solution 500 mL, 500 ml/hr, Infuse Over: 1 hr, Route: IV, ONCE, Priority: STAT, Dosing Weight 80.364 kg, Start date: 05/24/18 4:43:00 HOST/HOSTESS HEAD, Stop date: 05/24/18 4:43:00 HOST/HOSTESS HEAD Inactive 05/24/2018 [facility] Zofran 4 mg, 2 mL, Route: IVP, Drug form: INJ, Q8H, Dosing Weight 80.364, kg, PRN Nausea, Start date: 05/24/18 3:42:00 HOST/HOSTESS HEAD, Duration: 30 day, Stop date: 06/23/18 3:41:00 CSTNotes: (Same as: Zofran) MEDICATION WASTE Product Size: 4 mg Product Wasted: ___ mg No Longer Active 05/24/2018 [facility] Calcium Chloride 0.0014 MEQ/ML / Potassium Chloride 0.004 MEQ/ML / Sodium Chloride 0.103 MEQ/ML / Sodium Lactate 0.028 MEQ/ML Injectable Solution 500 mL, 500 ml/hr, Infuse Over: 1 hr, Route: IV, ONCE, Priority: STAT, Dosing Weight 80.364 kg, Start date: 05/24/18 1:19:00 HOST/HOSTESS HEAD, Stop date: 05/24/18 1:19:00 HOST/HOSTESS HEAD Inactive 05/24/2018 [facility] Oxycodone Hydrochloride 1 MG/ML Oral Solution 10 mg, 10 mL, Route: PO, Drug form: LIQ, Q6H, Dosing Weight 80.364, kg, PRN Pain Score 7- 10, Start date: 05/24/18 0:15:00 HOST/HOSTESS HEAD, Duration: 30 day, Stop date: 06/23/18 0:14:00 CSTNotes: (Same as: 'Roxicodone) No Longer Active 05/24/2018 [facility] tramadol hydrochloride 50 MG Oral Tablet 50 mg, 1 tab, Route: PO, Drug form: TAB, Q6H, Dosing Weight 80.364, kg, PRN Pain Score 1-3, Start date: 05/24/18 0:15:00 HOST/HOSTESS HEAD, Duration: 30 day, Stop date: 06/23/18 0:14:00 HOST/HOSTESS HEAD No Longer Active 05/24/2018 [facility] Calcium Gluconate 1 gm, 10 mL, Route: IVPB, PRN, Dosing Weight 80.364, kg, PRN Abnormal Lab Result, Start date: 05/24/18 0:10:00 HOST/HOSTESS HEAD, Duration: 30 day, Stop date: 06/23/18 0:09:00 HOST/HOSTESS HEAD, FOR ICU USE ONLYNotes: WASTE: F/P - Sink; E - Municipal Trash Bin No Longer Active 05/24/2018 [facility] Magnesium Oxide 800 mg, 2 tab, Route: PO, Drug form: TAB, PRN, Dosing Weight 80.364, kg, PRN Abnormal Lab Result, FOR ICU USE ONLY, Start date: 05/24/18 0:10:00 HOST/HOSTESS HEAD, Duration: 30 day, Stop date: 06/23/18 0:09:00 HOST/HOSTESS HEAD Notes: (Same as: Mag-Ox 400) Magnesium oxide 231re=132ot elemental magnesium Dose=____mg magnesium oxide (___mg elemental magnesium) No Longer Active 05/24/2018 [facility] Magnesium Sulfate 2 gm, 50 mL, Route: IVPB, Drug form: INJ, PRN, Dosing Weight 80.364, kg, PRN Abnormal Lab Result, Start date: 05/24/18 0:10:00 HOST/HOSTESS HEAD, Duration: 30 day, Stop date: 06/23/18 0:09:00 HOST/HOSTESS HEAD, FOR ICU USE ONLYNotes: WASTE: F/P - Sink; E - Municipal Trash Bin No Longer Active 05/24/2018 [facility] Potassium Chloride 10 mEq, 50 mL, Route: IVPB, Drug form: INJ, PRN, Dosing Weight 80.364, kg, PRN Abnormal Lab Result, Via peripheral line, Start date: 05/24/18 0:10:00 HOST/HOSTESS HEAD, Duration: 30 day, Stop date: 06/23/18 0:09:00 HOST/HOSTESS HEAD, FOR ICU USE ONLYNotes: (Same as: KCL) Infuse over 2 hours. No Longer Active 05/24/2018 [facility] Calcium Carbonate 500 MG Chewable Tablet 500 mg, 1 tab, Route: PO, Drug form: CHEWTAB, PRN, Dosing Weight 80.364, kg, PRN Abnormal Lab Result, FOR ICU USE ONLY, Start date: 05/24/18 0:10:00 HOST/HOSTESS HEAD, Duration: 30 day, Stop date: 06/23/18 0:09:00 CSTNotes: (Same As: Tums) Calcium Carbonate 500 if=112 mg elemental calcium Dose= mg calcium carbonate ( mg elemental calcium) No Longer Active 05/24/2018 [facility] sodium phosphate 15 mmol, 5 mL, Route: IVPB, PRN, Dosing Weight 80.364, kg, PRN Abnormal Lab Result, Start date: 05/24/18 0:10:00 HOST/HOSTESS HEAD, Duration: 30 day, Stop date: 06/23/18 0:09:00 HOST/HOSTESS HEAD, FOR ICU USE ONLYNotes: Infuse over 4 hour. Do not infuse phosphorous concurrently in the same line as TPN or IVF that contains calcium. For double lumen central lines, phosphorous may be infused in a separate lumen from TPN. No Longer Active 05/24/2018 [facility] potassium phosphate 30 mmol, 10 mL, Route: IVPB, PRN, Dosing Weight 80.364, kg, PRN Abnormal Lab Result, Start date: 05/24/18 0:10:00 HOST/HOSTESS HEAD, Duration: 30 day, Stop date: 06/23/18 0:09:00 HOST/HOSTESS HEAD, FOR ICU USE ONLYNotes: (Same as: K Phosphate.) Do not infuse phosphorous concurrently in the same line as TPN or IVF that contains calcium. For double lumen central lines, phosphorous may be infused in a separate lumen from TPN. 1 mMol phoshate has 1.47 mEq potassium Infuse over 4 hours No Longer Active 05/24/2018 [facility] potassium phosphate-sodium phosphate 250 mg-280 mg-160 mg oral powder for reconstitution 2 pkt, Route: PO, Drug Form: PDR/REC, Dosing Weight 80.364, kg, PRN, PRN Abnormal Lab Result, FOR ICU USE ONLY, Start date: 05/24/18 0:10:00 HOST/HOSTESS HEAD, Duration: 30 day, Stop date: 06/23/18 0:09:00 CSTNotes: (Same as: Phos-NaK) Each 1.5 gm pkt has 250mg phosphorous. Mix w/2.5oz water and stir. No Longer Active 05/24/2018 [facility] ocular lubricant 1 appl, Route: BOTH EYES, Q6H, Drug form: OINT, Start date: 05/24/18 0:00:00 HOST/HOSTESS HEAD, Duration: 30 day, Stop date: 06/22/18 18:00:00 CSTNotes: (Same as: Lacri-Lube, Puralube, Duratears Naturale, Artifici al Tears, and Tears Again ) Inactive 05/24/2018 [facility] Calcium Chloride 0.0014 MEQ/ML / Potassium Chloride 0.004 MEQ/ML / Sodium Chloride 0.103 MEQ/ML / Sodium Lactate 0.028 MEQ/ML Injectable Solution 500 mL, 500 ml/hr, Infuse Over: 1 hr, Route: IV, 500, Drug form: INJ, ONCE, Priority: STAT, Dosing Weight 80.364 kg, Start date: 05/23/18 23:48:00 HOST/HOSTESS HEAD, Stop date: 05/23/18 23:48:00 HOST/HOSTESS HEAD Inactive 05/24/2018 [facility] metoprolol extended release 50 mg, PO, Daily, 0 Refill(s) No Longer Active 05/24/2018 [facility] Dextrose 50% Syringe 12.5 gm, 25 mL, Route: IVP, Drug Form: INJ, Dosing Weight 80.364, kg, PRN, PRN Blood Glucose Results, Start date: 05/23/18 23:16:00 HOST/HOSTESS HEAD, Duration: 30 day, Stop date: 06/22/18 23:15:00 HOST/HOSTESS HEAD Inactive 05/24/2018 [facility] Insulin Lispro 2 unit, 0.02 mL, Route: SUB-Q, Drug form: SOLN, Sliding Scale, Dosing Weight 80.364, kg, PRN Blood Glucose Results, Start date: 05/23/18 23:16:00 HOST/HOSTESS HEAD, Duration: 30 day, Stop date: 06/22/18 23:15:00 C STNotes: (Same as: Humalog ) Roll in palms of hands gently; Do not shake `vigorously. "Single Patient Use Only " WASTE: F/P - Black; E - Municipal Trash Bin Stable for 28 days at room temperature. Expires in days from Date Inactive 05/24/2018 [facility] Glucagon 1 mg, Route: IM, Drug form: PDR/INJ, PRN, Dosing Weight 80.364, kg, PRN Blood Glucose Results, Start date: 05/23/18 23:16:00 HOST/HOSTESS HEAD, Duration: 30 day, Stop date: 06/22/18 23:15:00 HOST/HOSTESS HEAD Inactive 05/24/2018 [facility] chlorhexidine gluconate 1.2 MG/ML Mouthwash 15 mL, Route: Swab Mouth, PRN, Drug form: LIQ, PRN Other -See Comment, Start date: 05/23/18 23:01:00 HOST/HOSTESS HEAD, Duration: 30 day, Stop date: 06/22/18 23:00:00 CSTNotes: (Same As: Peridex) No Longer Active 05/24/2018 [facility] Aspirin 300 MG Rectal Suppository 300 mg, 1 supp, Route: [place], Drug form: SUPP, ONCE, Dosing Weight 71.364, kg, Priority: NOW, Start date: 05/23/18 22:52:00 HOST/HOSTESS HEAD, Stop date: 05/23/18 22:52:00 CSTNotes: Refrigerate. Inactive 05/24/2018 [facility] propofol (ANES) Route: IV, Drug form: INJ, ONCE, Stop date: 05/23/18 22:39:00 HOST/HOSTESS HEAD Inactive 05/24/2018 [facility] ondansetron (ANES) Route: IV, Drug form: INJ, ONCE, Stop date: 05/23/18 21:42:00 HOST/HOSTESS HEAD Inactive 05/24/2018 [facility] vasopressin (ANES) Route: IV, Drug form: INJ, ONCE, Stop date: 05/23/18 18:55:00 HOST/HOSTESS HEAD Inactive 05/24/2018 [facility] fentaNYL (ANES) Route: IV, Drug form: INJ, ONCE, Stop date: 05/23/18 18:55:00 HOST/HOSTESS HEAD Inactive 05/24/2018 [facility] ceFAZolin (ANES) Route: IV, Drug form: INJ, ONCE, Stop date: 05/23/18 18:00:00 HOST/HOSTESS HEAD Inactive 05/24/2018 [facility] norepinephrine (ANES) Route: IV, Drug form: INJ, ONCE, Stop date: 05/23/18 17:20:00 HOST/HOSTESS HEAD Inactive 05/23/2018 [facility] Insulin Lispro 3 unit, 0.03 mL, Route: SUB-Q, Drug form: SOLN, Sliding Scale, Dosing Weight 71.364, kg, PRN Blood Glucose Results, Start date: 05/23/18 17:01:00 HOST/HOSTESS HEAD, Duration: 30 day, Stop date: 06/22/18 17:00:00 C STNotes: (Same as: Humalog ) Roll in palms of hands gently; Do not shake `vigorously. "Single Patient Use Only " WASTE: F/P - Black; E - Municipal Trash Bin Stable for 28 days at room temperature. Expires in days from Date No Longer Active 05/23/2018 [facility] Glucagon 1 mg, Route: IM, Drug form: PDR/INJ, PRN, Dosing Weight 71.364, kg, PRN Blood Glucose Results, Start date: 05/23/18 17:01:00 HOST/HOSTESS HEAD, Duration: 30 day, Stop date: 06/22/18 17:00:00 HOST/HOSTESS HEAD No Longer Active 05/23/2018 [facility] Dextrose 50% Syringe 25 gm, 50 mL, Route: IVP, Drug Form: INJ, Dosing Weight 71.364, kg, PRN, PRN Blood Glucose Results, Start date: 05/23/18 17:01:00 HOST/HOSTESS HEAD, Duration: 30 day, Stop date: 06/22/18 17:00:00 HOST/HOSTESS HEAD No Longer Active 05/23/2018 [facility] chlorhexidine gluconate 1.2 MG/ML Mouthwash [Peridex] 15 mL, Route: Swab Mouth, BID, Drug form: LIQ, Start date: 05/23/18 17:00:00 HOST/HOSTESS HEAD, Duration: 30 day, Stop date: 06/22/18 9:00:00 CSTNotes: (Same As: Peridex) No Longer Active 05/23/2018 [facility] Unasyn 3 gm, Route: IVPB, Drug form: PDR/INJ, ABXQ6H, Dosing Weight 71.364, kg, Start date: 05/23/18 17:00:00 HOST/HOSTESS HEAD, Duration: 30 day, Stop date: 06/22/18 13:00:00 CSTNotes: Dosing based on Ampicillin component (Same as: Unasyn) No Longer Active 05/23/2018 [facility] Albuterol 0.83 MG/ML Inhalant Solution 2.49 mg, 3 mL, Route: NEB, Drug form: SOLN, PRN, Dosing Weight 71.364, kg, PRN Respiratory Pathway, Start date: 05/23/18 16:42:00 HOST/HOSTESS HEAD, Duration: 30 day, Stop date: 06/22/18 16:41:00 CSTNotes: SEE RT DOCUMENTATION (Same as: Proventil) No Longer Active 05/23/2018 [facility] Labetalol 20 mg, 4 mL, Route: IV, Drug form: INJ, Q6H, Dosing Weight 71.364, kg, PRN Other -See Comment, Start date: 05/23/18 16:26:00 HOST/HOSTESS HEAD, Duration: 30 day, Stop date: 06/22/18 16:25:00 CSTNotes: (Same as: Normo dyne, Trandate) Push over 2 minutes Give bolus over 2-3 minutes. No Longer Active 05/23/2018 [facility] Hydralazine 20 mg, 1 mL, Route: IV, Drug form: INJ, Q6H, Dosing Weight 71.364, kg, PRN Other -See Comment, Start date: 05/23/18 16:26:00 HOST/HOSTESS HEAD, Duration: 30 day, Stop date: 06/22/18 16:25:00 CSTNotes: (Same as: Ap resoline) Push over 5 minutes No Longer Active 05/23/2018 [facility] Aspirin 325 mg, 1 tab, Route: [place], Drug form: TAB, ONCE, Dosing Weight 71.364, kg, Start date: 05/23/18 16:26:00 HOST/HOSTESS HEAD, Stop date: 05/23/18 16:26:00 CSTNotes: Take with food. No Longer Active 05/23/2018 [facility] Lactated Ringers IV 1,000 mL 1,000 mL, Rate: 65 ml/hr, Infuse over: 15.4 hr, Route: IV, Dosing Weight 71.364 kg, Total Volume: 1,000, Start date: 05/23/18 16:26:00 HOST/HOSTESS HEAD, Duration: 30 day, Stop date: 06/22/18 16:25:00 HOST/HOSTESS HEAD, 1.8, m2 No Longer Active 05/23/2018 [facility] Saline Flush 0.9% 10 ml, Route: IVP, Drug Form: INJ, Dosing Weight 71.364, kg, PRN, PRN Line Flush, Start date: 05/23/18 16:26:00 HOST/HOSTESS HEAD, Duration: 30 day, Stop date: 06/22/18 16:25:00 CSTNotes: Same as: BD Posiflush Sterile No Longer Active 05/23/2018 [facility] Metoprolol 5 mg, 5 mL, Route: IVP, Drug form: INJ, Q6H, Dosing Weight 71.364, kg, PRN Other -See Comment, Start date: 05/23/18 16:26:00 HOST/HOSTESS HEAD, Duration: 30 day, Stop date: 06/30/18 10:23:00 CSTNotes: (Same as: Lo pressor) Push over 2 minutes No Longer Active 05/23/2018 [facility] norepinephrine (ANES) Route: IV, Drug form: INJ, ONCE, Stop date: 05/23/18 12:09:00 HOST/HOSTESS HEAD Inactive 05/23/2018 [facility] ePHEDrine (ANES) Route: IV, Drug form: INJ, ONCE, Stop date: 05/23/18 9:59:00 HOST/HOSTESS HEAD Inactive 05/23/2018 [facility] acetaminophen (ANES) 10 mg Route: IV, Drug form: INJ, Start date: 05/23/18 9:36:00 HOST/HOSTESS HEAD, Stop date: 05/23/18 10:36:00 HOST/HOSTESS HEAD Inactive 05/23/2018 [facility] ceFAZolin (ANES) Route: IV, Drug form: INJ, ONCE, Stop date: 05/23/18 9:04:00 HOST/HOSTESS HEAD Inactive 05/23/2018 [facility] fentaNYL (ANES) Route: IV, Drug form: INJ, ONCE, Stop date: 05/23/18 8:54:00 HOST/HOSTESS HEAD Inactive 05/23/2018 [facility] rocuronium (ANES) Route: IV, Drug form: INJ, ONCE, Stop date: 05/23/18 8:54:00 HOST/HOSTESS HEAD Inactive 05/23/2018 [facility] lidocaine (ANES) Route: IV, Drug form: INJ, ONCE, Stop date: 05/23/18 8:54:00 HOST/HOSTESS HEAD Inactive 05/23/2018 [facility] midazolam (ANES) Route: IV, Drug form: SOLN, ONCE, Stop date: 05/23/18 8:54:00 HOST/HOSTESS HEAD Inactive 05/23/2018 [facility] propofol (ANES) Route: IV, Drug form: INJ, ONCE, Stop date: 05/23/18 8:54:00 HOST/HOSTESS HEAD Inactive 05/23/2018 [facility] EPINEPHrine (ANES) Route: IV, Drug form: INJ, ONCE, Stop date: 05/23/18 8:44:00 HOST/HOSTESS HEAD Inactive 05/23/2018 [facility] norepinephrine ([facility]) 10 microgram Route: IV, Drug form: INJ, Start date: 05/23/18 8:07:00 HOST/HOSTESS HEAD, Stop date: 05/23/18 9:07:00 HOST/HOSTESS HEAD Inactive 05/23/2018 [facility] Isolyte S PH 7.4 (ANES) 1000 mL Route: IV, Total Volume: 1,000, Start date: 05/23/18 8:00:00 HOST/HOSTESS HEAD, Stop date: 05/23/18 9:00:00 HOST/HOSTESS HEAD Inactive 05/23/2018 [facility] Lactated Ringers Injection IV (ANES) 1000 mL Route: IV, Total Volume: 1,000, Start date: 05/23/18 7:34:00 HOST/HOSTESS HEAD, Stop date: 05/23/18 8:34:00 HOST/HOSTESS HEAD Inactive 05/23/2018 [facility] omeprazole 20 mg oral enteric coated tablet 20 mg=1 tab, PO, Daily, # 30 tab, 3 Refill(s) Active 05/17/2018 [facility] metoprolol tartrate 50 mg oral tablet 50 mg=1 tab, PO, Daily, 0 Refill(s) No Longer Active 05/17/2018 [facility] levothyroxine 100 mcg (0.1 mg) oral tablet 100 microgram=1 tab, PO, Daily, # 90 tab, 1 Refill(s) Active 05/17/2018 [facility] Aspirin 81 MG Enteric Coated Tablet 81 mg=1 tab, PO, Daily, # 90 tab, 3 Refill(s) Active 05/17/2018 [facility] losartan 100 mg oral tablet 100 mg=1 tab, PO, Daily, # 90 tab, 3 Refill(s) Active 05/17/2018 [facility] Hydralazine Hydrochloride 50 MG Oral Tablet 50 mg=1 tab, PO, BID, 0 Refill(s) Active 05/17/2018 [facility] Allergies, Adverse Reactions, Alerts Substance Category Reaction Severity Reaction type Status Date Reported Comments Source sulfa drugs Assertion Drug allergy Active [facility] Immunizations No Data Provided for This Section Results Order Name Results Value Reference Range Date Interpretation Comments Source HEMATOLOGY Hgb 8.5 12.0 - 16.0 10/22/2018 [facility] ELECTROLYTES Chloride Lvl 111 95 - 109 10/21/2018 [facility] ELECTROLYTES CO2 26 24 - 32 10/21/2018 [facility] ELECTROLYTES Calcium Lvl 8.6 8.5 - 10.5 10/21/2018 [facility] ELECTROLYTES eGFR 81 10/21/2018 Result Comment: The eGFR is calculated using the CKD-EPI formula. In most young, healthy individuals the eGFR will be >90 mL/min/1.73m2. The eGFR declines with age. An eGFR of 60-89 may be normal in some populations, particularly the elderly, for whom the CKD-EPI formula has not been extensively validated. Use of the eGFR is not recommended in the following populations:

Individuals with unstable creatinine concentrations, including patients and those with serious co-morbid conditions.

Patients with extremes in muscle mass or diet.

The data above are obtained from the National Kidney Disease Education Program (NKDEP) which additionally recommends that when the eGFR is used in patients with extremes of body mass index for purposes of drug dosing, the eGFR should be multiplied by the estimated BMI. [facility] ELECTROLYTES Glucose Lvl 87 70 - 99 10/21/2018 [facility] ELECTROLYTES BUN 15 7 - 22 10/21/2018 [facility] ELECTROLYTES Sodium Lvl 143 135 - 145 10/21/2018 [facility] ELECTROLYTES Potassium Lvl 3.5 3.5 - 5.1 10/21/2018 [facility] ELECTROLYTES Creatinine Lvl 0.61 0.50 - 1.40 10/21/2018 [facility] ELECTROLYTES AGAP 9.5 10.0 - 20.0 10/21/2018 [facility] HEMATOLOGY Lymphocytes # 0.5 1.0 - 5.5 10/21/2018 [facility] HEMATOLOGY Monocytes # 0.4 0.0 - 0.8 10/21/2018 [facility] HEMATOLOGY Neutrophils # 2.1 1.5 - 8.1 10/21/2018 [facility] HEMATOLOGY Eosinophils # 0.2 0.0 - 0.5 10/21/2018 [facility] HEMATOLOGY Segs 64.5 45.0 - 75.0 10/21/2018 [facility] HEMATOLOGY Basophils 1.0 0.0 - 1.0 10/21/2018 [facility] HEMATOLOGY Lymphocytes 16.1 20.0 - 40.0 10/21/2018 [facility] HEMATOLOGY Monocytes 13.5 2.0 - 12.0 10/21/2018 [facility] HEMATOLOGY Eosinophils 4.9 0.0 - 4.0 10/21/2018 [facility] HEMATOLOGY MPV 9.1 7.4 - 10.4 10/21/2018 [facility] HEMATOLOGY WBC 3.2 3.7 - 10.4 10/21/2018 [facility] HEMATOLOGY Hct 25.1 36.0 - 48.0 10/21/2018 [facility] Hgb 8.3 12.0 - 16.0 10/21/2018 [facility] HEMATOLOGY RBC 2.67 4.20 - 5.40 10/21/2018 [facility] HEMATOLOGY MCV 94.0 80.0 - 98.0 10/21/2018 [facility] HEMATOLOGY Platelet 169 133 - 450 10/21/2018 [facility] HEMATOLOGY RDW 20.8 11.5 - 14.5 10/21/2018 [facility] MCHC 33.0 32.0 - 36.0 10/21/2018 [facility] MCH 31.0 27.0 - 31.0 10/21/2018 [facility] ANEMIA STUDY Vitamin B12 Lvl >2000 254 - 1320 10/21/2018 [facility] ANEMIA STUDY Ferritin Lvl 123 5 - 204 10/21/2018 [facility] ANEMIA STUDY Iron 42 30 - 160 10/21/2018 [facility] ANEMIA STUDY UIBC 158 110 - 370 10/21/2018 [facility] ANEMIA STUDY TIBC 200 228 - 428 10/21/2018 [facility] ANEMIA STUDY % Satur Fe 21 12 - 57 10/21/2018 [facility] HEMATOLOGY Retic Auto 1.2 0.5 - 1.5 10/21/2018 [facility] IMMUNOLOGY Haptoglobin 216 16 - 200 10/21/2018 [facility] CHEM PANEL eGFR 74 10/20/2018 Result Comment: The eGFR is calculated using the CKD-EPI formula. In most young, healthy individuals the eGFR will be >90 mL/min/1.73m2. The eGFR declines with age. An eGFR of 60-89 may be normal in some populations, particularly the elderly, for whom the CKD-EPI formula has not been extensively validated. Use of the eGFR is not recommended in the following populations:

Individuals with unstable creatinine concentrations, including patients and those with serious co-morbid conditions.

Patients with extremes in muscle mass or diet.

The data above are obtained from the National Kidney Disease Education Program (NKDEP) which additionally recommends that when the eGFR is used in patients with extremes of body mass index for purposes of drug dosing, the eGFR should be multiplied by the estimated BMI. [facility] CHEM PANEL Bili Total 0.5 0.2 - 1.3 10/20/2018 [facility] CHEM PANEL Alk Phos 69 39 - 136 10/20/2018 [facility] CHEM PANEL Potassium Lvl 3.8 3.5 - 5.1 10/20/2018 [facility] CHEM PANEL Calcium Lvl 9.2 8.5 - 10.5 10/20/2018 [facility] CHEM PANEL CO2 25 24 - 32 10/20/2018 [facility] CHEM PANEL Chloride Lvl 109 95 - 109 10/20/2018 [facility] CHEM PANEL ALT 13 0 - 65 10/20/2018 [facility] CHEM PANEL Albumin Lvl 2.8 3.5 - 5.0 10/20/2018 [facility] CHEM PANEL Total Protein 6.0 6.4 - 8.4 10/20/2018 [facility] CHEM PANEL AST 18 0 - 37 10/20/2018 [facility] CHEM PANEL Glucose Lvl 89 70 - 99 10/20/2018 [facility] CHEM PANEL BUN 18 7 - 22 10/20/2018 [facility] CHEM PANEL Creatinine Lvl 0.73 0.50 - 1.40 10/20/2018 [facility] CHEM PANEL Sodium Lvl 141 135 - 145 10/20/2018 [facility] CHEM PANEL AGAP 10.8 10.0 - 20.0 10/20/2018 [facility] [facility] CHEM PANEL B/C Ratio 25 6 - 25 10/20/2018 [facility] CHEM PANEL A/G Ratio 0.9 0.7 - 1.6 10/20/2018 [facility] CHEM PANEL Globulin 3.2 2.7 - 4.2 10/20/2018 [facility] HEMATOLOGY PTT 28.6 22.9 - 35.8 10/20/2018 [facility] HEMATOLOGY PT 13.5 12.0 - 14.7 10/20/2018 [facility] HEMATOLOGY INR 1.05 0.85 - 1.17 10/20/2018 [facility] HEMATOLOGY RBC 3.19 4.20 - 5.40 10/20/2018 [facility] WBC 4.2 3.7 - 10.4 10/20/2018 [facility] Hgb 9.7 12.0 - 16.0 10/20/2018 [facility] HEMATOLOGY MCV 94.9 80.0 - 98.0 10/20/2018 [facility] HEMATOLOGY Hct 30.3 36.0 - 48.0 10/20/2018 [facility] MCH 30.5 27.0 - 31.0 10/20/2018 [facility] MCHC 32.2 32.0 - 36.0 10/20/2018 [facility] RDW 21.0 11.5 - 14.5 10/20/2018 [facility] Platelet 211 133 - 450 10/20/2018 [facility] MPV 8.8 7.4 - 10.4 10/20/2018 [facility] HEMATOLOGY Monocytes # 0.4 0.0 - 0.8 10/20/2018 [facility] HEMATOLOGY Lymphocytes # 0.7 1.0 - 5.5 10/20/2018 [facility] HEMATOLOGY Eosinophils # 0.1 0.0 - 0.5 10/20/2018 [facility] HEMATOLOGY Segs 71.1 45.0 - 75.0 10/20/2018 [facility] HEMATOLOGY Eosinophils 2.9 0.0 - 4.0 10/20/2018 [facility] HEMATOLOGY Monocytes 9.2 2.0 - 12.0 10/20/2018 [facility] HEMATOLOGY Neutrophils # 3.0 1.5 - 8.1 10/20/2018 [facility] HEMATOLOGY Basophils 0.7 0.0 - 1.0 10/20/2018 [facility] HEMATOLOGY Lymphocytes 16.1 20.0 - 40.0 10/20/2018 [facility] CHEM PANEL Magnesium Lvl 1.8 1.8 - 2.4 06/29/2018 [facility] CHEM PANEL B/C Ratio 16 6 - 25 06/29/2018 [facility] CHEM PANEL Globulin 3.0 2.7 - 4.2 06/29/2018 [facility] CHEM PANEL A/G Ratio 1.2 0.7 - 1.6 06/29/2018 [facility] CHEM PANEL AGAP 13.0 10.0 - 20.0 06/29/2018 [facility] CHEM PANEL eGFR 54 06/29/2018 Result Comment: The eGFR is calculated using the CKD-EPI formula. In most young, healthy individuals the eGFR will be >90 mL/min/1.73m2. The eGFR declines with age. An eGFR of 60-89 may be normal in some populations, particularly the elderly, for whom the CKD-EPI formula has not been extensively validated. Use of the eGFR is not recommended in the following populations:

Individuals with unstable creatinine concentrations, including patients and those with serious co-morbid conditions.

Patients with extremes in muscle mass or diet.

The data above are obtained from the National Kidney Disease Education Program (NKDEP) which additionally recommends that when the eGFR is used in patients with extremes of body mass index for purposes of drug dosing, the eGFR should be multiplied by the estimated BMI. [facility] CHEM PANEL Bili Total 0.4 0.2 - 1.3 06/29/2018 [facility] CHEM PANEL Potassium Lvl 4.0 3.5 - 5.1 06/29/2018 [facility] CHEM PANEL BUN 15 7 - 22 06/29/2018 [facility] CHEM PANEL Glucose Lvl 99 70 - 99 06/29/2018 [facility] CHEM PANEL Sodium Lvl 141 135 - 145 06/29/2018 [facility] CHEM PANEL Creatinine Lvl 0.95 0.50 - 1.40 06/29/2018 [facility] CHEM PANEL Albumin Lvl 3.5 3.5 - 5.0 06/29/2018 [facility] CHEM PANEL Total Protein 6.5 6.4 - 8.4 06/29/2018 [facility] CHEM PANEL Calcium Lvl 9.6 8.5 - 10.5 06/29/2018 [facility] CHEM PANEL CO2 26 24 - 32 06/29/2018 [facility] CHEM PANEL Chloride Lvl 106 95 - 109 06/29/2018 [facility] CHEM PANEL Alk Phos 78 39 - 136 06/29/2018 [facility] CHEM PANEL AST 17 0 - 37 06/29/2018 [facility] CHEM PANEL ALT 13 0 - 65 06/29/2018 [facility] CHEM PANEL GGT 25 5 - 85 06/29/2018 [facility] HEMATOLOGY Platelet 219 133 - 450 06/29/2018 [facility] HEMATOLOGY RDW 16.4 11.5 - 14.5 06/29/2018 [facility] HEMATOLOGY MCHC 32.8 32.0 - 36.0 06/29/2018 [facility] HEMATOLOGY MPV 9.7 7.4 - 10.4 06/29/2018 [facility] HEMATOLOGY Hct 35.6 36.0 - 48.0 06/29/2018 [facility] HEMATOLOGY MCH 29.1 27.0 - 31.0 06/29/2018 [facility] HEMATOLOGY MCV 88.8 80.0 - 98.0 06/29/2018 [facility] HEMATOLOGY WBC 6.0 3.7 - 10.4 06/29/2018 [facility] HEMATOLOGY Hgb 11.7 12.0 - 16.0 06/29/2018 [facility] HEMATOLOGY RBC 4.01 4.20 - 5.40 06/29/2018 [facility] HEMATOLOGY Neutrophils # 4.2 1.5 - 8.1 06/29/2018 [facility] HEMATOLOGY Eosinophils # 0.1 0.0 - 0.5 06/29/2018 [facility] HEMATOLOGY Basophils 0.5 0.0 - 1.0 06/29/2018 [facility] HEMATOLOGY Lymphocytes # 1.2 1.0 - 5.5 06/29/2018 [facility] HEMATOLOGY Monocytes # 0.5 0.0 - 0.8 06/29/2018 [facility] HEMATOLOGY Segs 69.8 45.0 - 75.0 06/29/2018 [facility] HEMATOLOGY Lymphocytes 20.2 20.0 - 40.0 06/29/2018 [facility] HEMATOLOGY Monocytes 7.8 2.0 - 12.0 06/29/2018 [facility] HEMATOLOGY Eosinophils 1.7 0.0 - 4.0 06/29/2018 [facility] URINE AND STOOL UA Sq Epi Few /LPF Few /LPF 06/29/2018 [facility] URINE AND STOOL UA WBC 3 0 - 5 06/29/2018 [facility] URINE AND STOOL UA Leuk Est Negative (06/29/18 1:20 PM) Negative 06/29/2018 [facility] URINE AND STOOL Micro? Performed (06/29/18 1:20 PM) 06/29/2018 [facility] URINE AND STOOL UA CaOx Jessica Occasional /HPF None Seen /HPF 06/29/2018 [facility] URINE AND STOOL UA RBC 2 0 - 2 06/29/2018 [facility] URINE AND STOOL UA Hyal Cast 12 0 - 2 06/29/2018 [facility] URINE AND STOOL UA Mucus Few /LPF None Seen /LPF 06/29/2018 [facility] URINE AND STOOL UA pH 5.0 5.0 - 8.0 06/29/2018 [facility] URINE AND STOOL UA Ketones Negative *NA* (06/29/18 1:20 PM) Negative 06/29/2018 [facility] URINE AND STOOL UA Spec Grav 1.012 <=1.030 06/29/2018 [facility] URINE AND STOOL UA Protein 30 mg/dL Negative mg/dL 06/29/2018 [facility] URINE AND STOOL UA Bili Negative *NA* (06/29/18 1:20 PM) Negative 06/29/2018 [facility] URINE AND STOOL UA Glucose Negative *NA* (06/29/18 1:20 PM) Negative 06/29/2018 [facility] URINE AND STOOL UA Turbidity Slight *ABN* (06/29/18 1:20 PM) Clear 06/29/2018 [facility] URINE AND STOOL UA Color Yellow *NA* (06/29/18 1:20 PM) Yellow 06/29/2018 [facility] URINE AND STOOL UA Nitrite Negative (06/29/18 1:20 PM) Negative 06/29/2018 [facility] URINE AND STOOL UA Urobilinogen <1.0 0.1 - 1.0 06/29/2018 [facility] URINE AND STOOL UA Blood Negative (06/29/18 1:20 PM) Negative 06/29/2018 [facility] CHEM PANEL eGFR 84 06/03/2018 Result Comment: The eGFR is calculated using the CKD-EPI formula. In most young, healthy individuals the eGFR will be >90 mL/min/1.73m2. The eGFR declines with age. An eGFR of 60-89 may be normal in some populations, particularly the elderly, for whom the CKD-EPI formula has not been extensively validated. Use of the eGFR is not recommended in the following populations:

Individuals with unstable creatinine concentrations, including patients and those with serious co-morbid conditions.

Patients with extremes in muscle mass or diet.

The data above are obtained from the National Kidney Disease Education Program (NKDEP) which additionally recommends that when the eGFR is used in patients with extremes of body mass index for purposes of drug dosing, the eGFR should be multiplied by the estimated BMI. [facility] CHEM PANEL Calcium Lvl 8.5 8.5 - 10.5 06/03/2018 [facility] CHEM PANEL Chloride Lvl 111 95 - 109 06/03/2018 [facility] CHEM PANEL CO2 26 24 - 32 06/03/2018 [facility] CHEM PANEL Potassium Lvl 3.8 3.5 - 5.1 06/03/2018 [facility] CHEM PANEL Sodium Lvl 144 135 - 145 06/03/2018 [facility] CHEM PANEL BUN 17 7 - 22 06/03/2018 [facility] CHEM PANEL Creatinine Lvl 0.54 0.50 - 1.40 06/03/2018 [facility] CHEM PANEL Glucose Lvl 92 70 - 99 06/03/2018 [facility] CHEM PANEL AGAP 10.8 10.0 - 20.0 06/03/2018 [facility] HEMATOLOGY Platelet 198 133 - 450 06/03/2018 [facility] HEMATOLOGY MPV 9.5 7.4 - 10.4 06/03/2018 [facility] HEMATOLOGY MCHC 31.7 32.0 - 36.0 06/03/2018 [facility] HEMATOLOGY MCH 29.9 27.0 - 31.0 06/03/2018 [facility] HEMATOLOGY RDW 18.4 11.5 - 14.5 06/03/2018 [facility] HEMATOLOGY Hct 31.6 36.0 - 48.0 06/03/2018 [facility] HEMATOLOGY MCV 94.3 80.0 - 98.0 06/03/2018 [facility] HEMATOLOGY RBC 3.35 4.20 - 5.40 06/03/2018 [facility] HEMATOLOGY Hgb 10.0 12.0 - 16.0 06/03/2018 [facility] HEMATOLOGY WBC 7.7 3.7 - 10.4 06/03/2018 [facility] HEMATOLOGY Eosinophils # 0.4 0.0 - 0.5 06/03/2018 [facility] HEMATOLOGY Segs 71.8 45.0 - 75.0 06/03/2018 [facility] HEMATOLOGY Lymphocytes 15.8 20.0 - 40.0 06/03/2018 [facility] HEMATOLOGY Monocytes 6.4 2.0 - 12.0 06/03/2018 [facility] HEMATOLOGY Eosinophils 5.4 0.0 - 4.0 06/03/2018 [facility] HEMATOLOGY Basophils 0.6 0.0 - 1.0 06/03/2018 [facility] HEMATOLOGY Lymphocytes # 1.2 1.0 - 5.5 06/03/2018 [facility] HEMATOLOGY Neutrophils # 5.5 1.5 - 8.1 06/03/2018 [facility] HEMATOLOGY Monocytes # 0.5 0.0 - 0.8 06/03/2018 [facility] ELECTROLYTES AGAP 8.6 10.0 - 20.0 06/02/2018 [facility] ELECTROLYTES eGFR 81 06/02/2018 Result Comment: The eGFR is calculated using the CKD-EPI formula. In most young, healthy individuals the eGFR will be >90 mL/min/1.73m2. The eGFR declines with age. An eGFR of 60-89 may be normal in some populations, particularly the elderly, for whom the CKD-EPI formula has not been extensively validated. Use of the eGFR is not recommended in the following populations:

Individuals with unstable creatinine concentrations, including patients and those with serious co-morbid conditions.

Patients with extremes in muscle mass or diet.

The data above are obtained from the National Kidney Disease Education Program (NKDEP) which additionally recommends that when the eGFR is used in patients with extremes of body mass index for purposes of drug dosing, the eGFR should be multiplied by the estimated BMI. [facility] ELECTROLYTES Potassium Lvl 3.6 3.5 - 5.1 06/02/2018 [facility] ELECTROLYTES CO2 29 24 - 32 06/02/2018 [facility] ELECTROLYTES Calcium Lvl 8.7 8.5 - 10.5 06/02/2018 [facility] ELECTROLYTES Chloride Lvl 109 95 - 109 06/02/2018 [facility] ELECTROLYTES Glucose Lvl 121 70 - 99 06/02/2018 [facility] ELECTROLYTES BUN 22 7 - 22 06/02/2018 [facility] ELECTROLYTES Creatinine Lvl 0.60 0.50 - 1.40 06/02/2018 [facility] ELECTROLYTES Sodium Lvl 143 135 - 145 06/02/2018 [facility] HEMATOLOGY Monocytes # 0.4 0.0 - 0.8 06/02/2018 [facility] HEMATOLOGY Neutrophils # 5.8 1.5 - 8.1 06/02/2018 [facility] HEMATOLOGY Eosinophils # 0.3 0.0 - 0.5 06/02/2018 [facility] HEMATOLOGY Lymphocytes # 0.8 1.0 - 5.5 06/02/2018 [facility] HEMATOLOGY Eosinophils 4.4 0.0 - 4.0 06/02/2018 [facility] HEMATOLOGY Monocytes 5.1 2.0 - 12.0 06/02/2018 [facility] HEMATOLOGY Lymphocytes 11.3 20.0 - 40.0 06/02/2018 [facility] HEMATOLOGY Segs 78.7 45.0 - 75.0 06/02/2018 [facility] HEMATOLOGY Basophils 0.5 0.0 - 1.0 06/02/2018 [facility] HEMATOLOGY RDW 17.3 11.5 - 14.5 06/02/2018 [facility] HEMATOLOGY MCHC 33.0 32.0 - 36.0 06/02/2018 [facility] HEMATOLOGY MCH 29.9 27.0 - 31.0 06/02/2018 [facility] HEMATOLOGY MCV 90.5 80.0 - 98.0 06/02/2018 [facility] HEMATOLOGY Hct 31.6 36.0 - 48.0 06/02/2018 [facility] HEMATOLOGY Hgb 10.4 12.0 - 16.0 06/02/2018 [facility] HEMATOLOGY MPV 9.1 7.4 - 10.4 06/02/2018 [facility] HEMATOLOGY Platelet 232 133 - 450 06/02/2018 [facility] HEMATOLOGY RBC 3.49 4.20 - 5.40 06/02/2018 [facility] HEMATOLOGY WBC 7.4 3.7 - 10.4 06/02/2018 [facility] CHEM PANEL eGFR 85 06/02/2018 Result Comment: The eGFR is calculated using the CKD-EPI formula. In most young, healthy individuals the eGFR will be >90 mL/min/1.73m2. The eGFR declines with age. An eGFR of 60-89 may be normal in some populations, particularly the elderly, for whom the CKD-EPI formula has not been extensively validated. Use of the eGFR is not recommended in the following populations:

Individuals with unstable creatinine concentrations, including patients and those with serious co-morbid conditions.

Patients with extremes in muscle mass or diet.

The data above are obtained from the National Kidney Disease Education Program (NKDEP) which additionally recommends that when the eGFR is used in patients with extremes of body mass index for purposes of drug dosing, the eGFR should be multiplied by the estimated BMI. [facility] CHEM PANEL Calcium Lvl 8.3 8.5 - 10.5 06/02/2018 [facility] CHEM PANEL AGAP 9.4 10.0 - 20.0 06/02/2018 [facility] CHEM PANEL Potassium Lvl 3.4 3.5 - 5.1 06/02/2018 [facility] CHEM PANEL Sodium Lvl 147 135 - 145 06/02/2018 [facility] CHEM PANEL Creatinine Lvl 0.51 0.50 - 1.40 06/02/2018 [facility] CHEM PANEL CO2 30 24 - 32 06/02/2018 [facility] CHEM PANEL Chloride Lvl 111 95 - 109 06/02/2018 [facility] CHEM PANEL BUN 19 7 - 22 06/02/2018 [facility] CHEM PANEL Glucose Lvl 127 70 - 99 06/02/2018 [facility] ELECTROLYTES Potassium WB 3.7 3.5 - 5.1 06/01/2018 [facility] CHEM PANEL Phosphorus 2.6 2.5 - 4.5 05/31/2018 [facility] CHEM PANEL Magnesium Lvl 2.2 1.8 - 2.4 05/31/2018 [facility] HEMATOLOGY MCH 29.8 27.0 - 31.0 05/31/2018 [facility] HEMATOLOGY MCHC 33.0 32.0 - 36.0 05/31/2018 [facility] HEMATOLOGY RDW 17.1 11.5 - 14.5 05/31/2018 [facility] HEMATOLOGY MCV 90.3 80.0 - 98.0 05/31/2018 [facility] HEMATOLOGY WBC 8.7 3.7 - 10.4 05/31/2018 [facility] HEMATOLOGY RBC 3.57 4.20 - 5.40 05/31/2018 [facility] HEMATOLOGY Platelet 218 133 - 450 05/31/2018 [facility] HEMATOLOGY MPV 8.9 7.4 - 10.4 05/31/2018 [facility] HEMATOLOGY Hct 32.2 36.0 - 48.0 05/31/2018 [facility] HEMATOLOGY Hgb 10.6 12.0 - 16.0 05/31/2018 [facility] HEMATOLOGY Lymphocytes 12.6 20.0 - 40.0 05/31/2018 [facility] HEMATOLOGY Monocytes 5.6 2.0 - 12.0 05/31/2018 [facility] HEMATOLOGY Eosinophils # 0.3 0.0 - 0.5 05/31/2018 [facility] HEMATOLOGY Segs 77.6 45.0 - 75.0 05/31/2018 [facility] HEMATOLOGY Eosinophils 3.9 0.0 - 4.0 05/31/2018 [facility] HEMATOLOGY Basophils 0.3 0.0 - 1.0 05/31/2018 [facility] HEMATOLOGY Neutrophils # 6.8 1.5 - 8.1 05/31/2018 [facility] HEMATOLOGY Monocytes # 0.5 0.0 - 0.8 05/31/2018 [facility] HEMATOLOGY Lymphocytes # 1.1 1.0 - 5.5 05/31/2018 [facility] PARATHYROID PROFILE Ca Norm WB 1.18 1.05 - 1.25 05/31/2018 [facility] PARATHYROID PROFILE Ca Ion WB 1.18 1.05 - 1.25 05/31/2018 [facility] CHEM PANEL Magnesium Lvl 2.0 1.8 - 2.4 05/30/2018 [facility] CHEM PANEL Phosphorus 2.6 2.5 - 4.5 05/30/2018 [facility] HEMATOLOGY RBC Morph Normal (05/30/18 5:53 AM) 05/30/2018 [facility] HEMATOLOGY Plt Morph Normal (05/30/18 5:53 AM) 05/30/2018 [facility] PARATHYROID PROFILE Ca Norm WB 1.19 1.05 - 1.25 05/30/2018 [facility] PARATHYROID PROFILE Ca Ion WB 1.19 1.05 - 1.25 05/30/2018 [facility] CHEM PANEL Phosphorus 2.6 2.5 - 4.5 05/29/2018 [facility] CHEM PANEL Magnesium Lvl 1.8 1.8 - 2.4 05/29/2018 [facility] PARATHYROID PROFILE Ca Norm WB 1.20 1.05 - 1.25 05/29/2018 [facility] PARATHYROID PROFILE Ca Ion WB 1.20 1.05 - 1.25 05/29/2018 [facility] CARDIAC ENZYMES Troponin-I 0.56 0.00 - 0.40 05/26/2018 Result Comment: Critical Result(s) called to Romero Osborne at 05/26/2018 09:09 by [email or web address] . Read back OK. [facility] TOXICOLOGY Vanco Lvl 21.8 05/26/2018 [facility] CARDIAC ENZYMES Troponin-I 0.44 0.00 - 0.40 05/26/2018 [facility] CHEM PANEL A/G Ratio 1.9 0.7 - 1.6 05/26/2018 [facility] CHEM PANEL Globulin 1.9 2.7 - 4.2 05/26/2018 [facility] CHEM PANEL Bili Total 0.7 0.2 - 1.3 05/26/2018 [facility] CHEM PANEL Alk Phos 43 39 - 136 05/26/2018 [facility] CHEM PANEL AST 26 0 - 37 05/26/2018 [facility] CHEM PANEL Bili Direct 0.2 0.0 - 0.3 05/26/2018 [facility] CHEM PANEL Bili Indirect 0.5 0.0 - 1.0 05/26/2018 [facility] CHEM PANEL Total Protein 5.6 6.4 - 8.4 05/26/2018 [facility] CHEM PANEL ALT 8 0 - 65 05/26/2018 [facility] CHEM PANEL Albumin Lvl 3.7 3.5 - 5.0 05/26/2018 [facility] CARDIAC ENZYMES Troponin-I 0.45 0.00 - 0.40 05/26/2018 [facility] BLOOD BANK RESULTS RBC product Product available (05/25/18 10:12 AM) 05/25/2018 [facility] CHEM PANEL A/G Ratio 2.1 0.7 - 1.6 05/25/2018 [facility] CHEM PANEL Globulin 1.8 2.7 - 4.2 05/25/2018 [facility] CHEM PANEL Alk Phos 35 39 - 136 05/25/2018 [facility] CHEM PANEL ALT 8 0 - 65 05/25/2018 [facility] CHEM PANEL Bili Total 0.8 0.2 - 1.3 05/25/2018 [facility] CHEM PANEL Bili Direct 0.3 0.0 - 0.3 05/25/2018 [facility] CHEM PANEL Bili Indirect 0.5 0.0 - 1.0 05/25/2018 [facility] CHEM PANEL Total Protein 5.5 6.4 - 8.4 05/25/2018 [facility] CHEM PANEL AST 23 0 - 37 05/25/2018 [facility] CHEM PANEL Albumin Lvl 3.7 3.5 - 5.0 05/25/2018 [facility] CHEM PANEL Procalcitonin Lvl 0.40 0.00 - 0.10 05/25/2018 [facility] BLOOD BANK RESULTS RBC product Product available (05/24/18 10:06 PM) 05/25/2018 [facility] CHEM PANEL Globulin 1.7 2.7 - 4.2 05/25/2018 [facility] CHEM PANEL A/G Ratio 1.8 0.7 - 1.6 05/25/2018 [facility] CHEM PANEL ALT 8 0 - 65 05/25/2018 [facility] CHEM PANEL AST 21 0 - 37 05/25/2018 [facility] CHEM PANEL Total Protein 4.7 6.4 - 8.4 05/25/2018 [facility] CHEM PANEL Albumin Lvl 3.0 3.5 - 5.0 05/25/2018 [facility] CHEM PANEL Bili Total 0.6 0.2 - 1.3 05/25/2018 [facility] CHEM PANEL Alk Phos 32 39 - 136 05/25/2018 [facility] CHEM PANEL Bili Indirect 0.4 0.0 - 1.0 05/25/2018 [facility] CHEM PANEL Bili Direct 0.2 0.0 - 0.3 05/25/2018 [facility] TOXICOLOGY Vanco Lvl 15.6 05/25/2018 [facility] BLOOD BANK RESULTS RBC product Product available (05/24/18 5:08 PM) 05/24/2018 [facility] CHEM PANEL Lactic Acid Lvl 1.7 0.5 - 2.2 05/24/2018 [facility] Culture: Urine No Growth 05/24/2018 [facility] URINE AND STOOL UA Hyal Cast 10 0 - 2 05/24/2018 [facility] URINE AND STOOL UA Mucus Few /LPF None Seen /LPF 05/24/2018 [facility] URINE AND STOOL UA WBC 28 0 - 5 05/24/2018 [facility] URINE AND STOOL UA Amorph Jessica Occasional /HPF None Seen /HPF 05/24/2018 [facility] URINE AND STOOL UA Bacteria Occasional /HPF None Seen /HPF 05/24/2018 [facility] URINE AND STOOL UA RBC 13 0 - 2 05/24/2018 [facility] URINE AND STOOL UA Nitrite Negative (05/24/18 11:23 AM) Negative 05/24/2018 [facility] URINE AND STOOL UA Leuk Est Negative (05/24/18 11:23 AM) Negative 05/24/2018 [facility] URINE AND STOOL UA pH 5.0 5.0 - 8.0 05/24/2018 [facility] URINE AND STOOL UA Protein Negative mg/dL Negative mg/dL 05/24/2018 [facility] URINE AND STOOL UA Glucose Negative mg/dL Negative mg/dL 05/24/2018 [facility] URINE AND STOOL UA Urobilinogen 0.2 0.1 - 1.0 05/24/2018 [facility] URINE AND STOOL UA Ketones Trace mg/dL Negative mg/dL 05/24/2018 [facility] URINE AND STOOL UA Blood Negative (05/24/18 11:23 AM) Negative 05/24/2018 [facility] URINE AND STOOL UA Bili Negative *NA* (05/24/18 11:23 AM) Negative 05/24/2018 [facility] URINE AND STOOL UA Turbidity Clear (05/24/18 11:23 AM) Clear 05/24/2018 [facility] URINE AND STOOL UA Color Yellow *NA* (05/24/18 11:23 AM) Yellow 05/24/2018 [facility] URINE AND STOOL UA Spec Grav 1.020 <=1.030 05/24/2018 [facility] URINE AND STOOL UA Sq Epi RARE 05/24/2018 [facility] CHEM PANEL Lactic Acid Lvl 3.9 0.5 - 2.2 05/24/2018 [facility] Gram Stain Report Gram Stain Performed By: [facility] 05/24/2018 [facility] Culture: Respiratory w/Gram Stain No Growth 05/24/2018 [facility] CHEM PANEL Lactic Acid Lvl 2.7 0.5 - 2.2 05/24/2018 [facility] ENDOCRINOLOGY Cortisol 56.8 05/24/2018 [facility] HEMATOLOGY INR 1.09 0.85 - 1.17 05/24/2018 [facility] HEMATOLOGY PT 13.9 12.0 - 14.7 05/24/2018 [facility] HEMATOLOGY PTT 30.1 22.9 - 35.8 05/24/2018 [facility] LIPIDS VLDL 21 05/24/2018 [facility] LIPIDS LDL (Calculated) 58 <=99 mg/dL 05/24/2018 [facility] LIPIDS HDL 60 >=61 mg/dL 05/24/2018 [facility] LIPIDS Chol 139 <=199 mg/dL 05/24/2018 [facility] LIPIDS Trig 105 <=149 mg/dL 05/24/2018 [facility] LIPIDS CHD Risk 2.32 3.90 - 5.80 05/24/2018 [facility] SPECIAL CHEMISTRY Hgb A1C 5.4 <=5.6 % 05/24/2018 [facility] CHEM PANEL Procalcitonin Lvl 0.35 0.00 - 0.10 05/24/2018 [facility] HEMATOLOGY Large Plt Slight 05/24/2018 [facility] HEMATOLOGY RBC Morph Normal (05/23/18 11:14 PM) 05/24/2018 [facility] BLOOD BANK RESULTS Antibody Scrn Negative (05/23/18 6:16 AM) 05/23/2018 [facility] BLOOD BANK RESULTS ABO/Rh O POS 05/23/2018 [facility] HEMATOLOGY INR 0.99 0.85 - 1.17 05/17/2018 [facility] HEMATOLOGY PTT 27.5 22.9 - 35.8 05/17/2018 [facility] HEMATOLOGY PT 12.9 12.0 - 14.7 05/17/2018 [facility] CHEM PANEL GGT 22 5 - 85 05/17/2018 [facility] CHEM PANEL Magnesium Lvl 1.8 1.8 - 2.4 05/17/2018 [facility] CHEM PANEL eGFR 73 05/17/2018 Result Comment: The eGFR is calculated using the CKD-EPI formula. In most young, healthy individuals the eGFR will be >90 mL/min/1.73m2. The eGFR declines with age. An eGFR of 60-89 may be normal in some populations, particularly the elderly, for whom the CKD-EPI formula has not been extensively validated. Use of the eGFR is not recommended in the following populations:

Individuals with unstable creatinine concentrations, including patients and those with serious co-morbid conditions.

Patients with extremes in muscle mass or diet.

The data above are obtained from the National Kidney Disease Education Program (NKDEP) which additionally recommends that when the eGFR is used in patients with extremes of body mass index for purposes of drug dosing, the eGFR should be multiplied by the estimated BMI. [facility] CHEM PANEL Bili Total 0.3 0.2 - 1.3 05/17/2018 [facility] CHEM PANEL Albumin Lvl 3.1 3.5 - 5.0 05/17/2018 [facility] CHEM PANEL Total Protein 6.1 6.4 - 8.4 05/17/2018 [facility] CHEM PANEL AST 14 0 - 37 05/17/2018 [facility] CHEM PANEL ALT 10 0 - 65 05/17/2018 [facility] CHEM PANEL Calcium Lvl 8.8 8.5 - 10.5 05/17/2018 [facility] CHEM PANEL CO2 28 24 - 32 05/17/2018 [facility] CHEM PANEL Alk Phos 62 39 - 136 05/17/2018 [facility] CHEM PANEL Sodium Lvl 142 135 - 145 05/17/2018 [facility] CHEM PANEL Chloride Lvl 109 95 - 109 05/17/2018 [facility] CHEM PANEL BUN 13 7 - 22 05/17/2018 [facility] CHEM PANEL Glucose Lvl 90 70 - 99 05/17/2018 [facility] CHEM PANEL Creatinine Lvl 0.73 0.50 - 1.40 05/17/2018 [facility] CHEM PANEL Potassium Lvl 4.0 3.5 - 5.1 05/17/2018 [facility] CHEM PANEL A/G Ratio 1.0 0.7 - 1.6 05/17/2018 [facility] CHEM PANEL Globulin 3.0 2.7 - 4.2 05/17/2018 [facility] CHEM PANEL B/C Ratio 18 6 - 25 05/17/2018 [facility] CHEM PANEL AGAP 9.0 10.0 - 20.0 05/17/2018 [facility] HEMATOLOGY MCHC 33.1 32.0 - 36.0 05/17/2018 [facility] HEMATOLOGY MCH 29.7 27.0 - 31.0 05/17/2018 [facility] HEMATOLOGY Hgb 11.0 12.0 - 16.0 05/17/2018 [facility] HEMATOLOGY MCV 89.8 80.0 - 98.0 05/17/2018 [facility] HEMATOLOGY Hct 33.3 36.0 - 48.0 05/17/2018 [facility] HEMATOLOGY RDW 14.3 11.5 - 14.5 05/17/2018 [facility] HEMATOLOGY MPV 9.3 7.4 - 10.4 05/17/2018 [facility] HEMATOLOGY Platelet 207 133 - 450 05/17/2018 [facility] HEMATOLOGY RBC 3.71 4.20 - 5.40 05/17/2018 [facility] HEMATOLOGY WBC 5.3 3.7 - 10.4 05/17/2018 [facility] HEMATOLOGY Neutrophils # 3.8 1.5 - 8.1 05/17/2018 [facility] HEMATOLOGY Basophils 1.0 0.0 - 1.0 05/17/2018 [facility] HEMATOLOGY Segs 70.3 45.0 - 75.0 05/17/2018 [facility] HEMATOLOGY Lymphocytes 16.5 20.0 - 40.0 05/17/2018 [facility] HEMATOLOGY Monocytes # 0.5 0.0 - 0.8 05/17/2018 [facility] HEMATOLOGY Lymphocytes # 0.9 1.0 - 5.5 05/17/2018 [facility] HEMATOLOGY Eosinophils 3.3 0.0 - 4.0 05/17/2018 [facility] HEMATOLOGY Monocytes 8.9 2.0 - 12.0 05/17/2018 [facility] HEMATOLOGY Eosinophils # 0.2 0.0 - 0.5 05/17/2018 [facility] HEMATOLOGY Basophils # 0.1 0.0 - 0.2 05/17/2018 [facility] URINE AND STOOL UA Renal Epi RARE <=0 05/17/2018 [facility] URINE AND STOOL UA RBC <1 0 - 2 05/17/2018 [facility] URINE AND STOOL UA Bacteria Occasional /HPF None Seen /HPF 05/17/2018 [facility] URINE AND STOOL UA Mucus Few /LPF None Seen /LPF 05/17/2018 [facility] URINE AND STOOL UA WBC 20 0 - 5 05/17/2018 [facility] URINE AND STOOL UA Nitrite Negative (05/17/18 11:22 AM) Negative 05/17/2018 [facility] URINE AND STOOL UA Blood Negative (05/17/18 11:22 AM) Negative 05/17/2018 [facility] URINE AND STOOL UA Bili Negative *NA* (05/17/18 11:22 AM) Negative 05/17/2018 [facility] URINE AND STOOL UA Ketones Negative mg/dL Negative mg/dL 05/17/2018 [facility] URINE AND STOOL UA Glucose Negative mg/dL Negative mg/dL 05/17/2018 [facility] URINE AND STOOL UA Protein 10 mg/dL Negative mg/dL 05/17/2018 [facility] URINE AND STOOL UA pH 6.0 5.0 - 8.0 05/17/2018 [facility] URINE AND STOOL UA Urobilinogen <=1.0 mg/dL 0.1 - 1.0 05/17/2018 [facility] URINE AND STOOL UA Amorph Jessica Occasional /HPF None Seen /HPF 05/17/2018 [facility] URINE AND STOOL UA Sq Epi Occasional /LPF Few /LPF 05/17/2018 [facility] URINE AND STOOL UA Leuk Est Small *ABN* (05/17/18 11:22 AM) Negative 05/17/2018 [facility] URINE AND STOOL Micro? Performed *NA* (05/17/18 11:22 AM) 05/17/2018 [facility] URINE AND STOOL UA Spec Grav 1.008 <=1.030 05/17/2018 [facility] URINE AND STOOL UA Turbidity Clear (05/17/18 11:22 AM) Clear 05/17/2018 [facility] URINE AND STOOL UA Color Yellow *NA* (05/17/18 11:22 AM) Yellow 05/17/2018 [facility] URINE AND STOOL UA Sq Epi RARE 05/08/2018 [facility] URINE AND STOOL UA Urobilinogen <=1.0 mg/dL 0.1 - 1.0 05/08/2018 [facility] URINE AND STOOL UA Protein Negative mg/dL Negative mg/dL 05/08/2018 [facility] URINE AND STOOL UA Glucose Negative mg/dL Negative mg/dL 05/08/2018 [facility] URINE AND STOOL UA Color Light Yellow *NA* (05/08/18 11:14 AM) Yellow 05/08/2018 [facility] URINE AND STOOL UA Turbidity Slight *ABN* (05/08/18 11:14 AM) Clear 05/08/2018 [facility] URINE AND STOOL UA Spec Grav 1.005 <=1.030 05/08/2018 [facility] URINE AND STOOL UA pH 6.5 5.0 - 8.0 05/08/2018 [facility] URINE AND STOOL UA Bacteria Moderate /HPF None Seen /HPF 05/08/2018 [facility] URINE AND STOOL Micro? Performed *NA* (05/08/18 11:14 AM) 05/08/2018 [facility] URINE AND STOOL UA Nitrite Positive *ABN* (05/08/18 11:14 AM) Negative 05/08/2018 [facility] URINE AND STOOL UA Leuk Est Large *ABN* (05/08/18 11:14 AM) Negative 05/08/2018 [facility] URINE AND STOOL UA WBC >182 0 - 5 05/08/2018 [facility] URINE AND STOOL UA RBC 2 0 - 2 05/08/2018 [facility] URINE AND STOOL UA Ketones Negative mg/dL Negative mg/dL 05/08/2018 [facility] URINE AND STOOL UA Bili Negative *NA* (05/08/18 11:14 AM) Negative 05/08/2018 [facility] URINE AND STOOL UA Blood Negative (05/08/18 11:14 AM) Negative 05/08/2018 [facility] CHEM PANEL eGFR 79 05/08/2018 Result Comment: The eGFR is calculated using the CKD-EPI formula. In most young, healthy individuals the eGFR will be >90 mL/min/1.73m2. The eGFR declines with age. An eGFR of 60-89 may be normal in some populations, particularly the elderly, for whom the CKD-EPI formula has not been extensively validated. Use of the eGFR is not recommended in the following populations:

Individuals with unstable creatinine concentrations, including patients and those with serious co-morbid conditions.

Patients with extremes in muscle mass or diet.

The data above are obtained from the National Kidney Disease Education Program (NKDEP) which additionally recommends that when the eGFR is used in patients with extremes of body mass index for purposes of drug dosing, the eGFR should be multiplied by the estimated BMI. [facility] CHEM PANEL AST 13 0 - 37 05/08/2018 [facility] CHEM PANEL Alk Phos 68 39 - 136 05/08/2018 [facility] CHEM PANEL ALT <6 0 - 65 05/08/2018 [facility] CHEM PANEL A/G Ratio 1.1 0.7 - 1.6 05/08/2018 [facility] CHEM PANEL Bili Total 0.4 0.2 - 1.3 05/08/2018 [facility] CHEM PANEL Albumin Lvl 3.4 3.5 - 5.0 05/08/2018 [facility] CHEM PANEL B/C Ratio 20 6 - 25 05/08/2018 [facility] CHEM PANEL Globulin 3.0 2.7 - 4.2 05/08/2018 [facility] CHEM PANEL Total Protein 6.4 6.4 - 8.4 05/08/2018 [facility] CHEM PANEL Sodium Lvl 142 135 - 145 05/08/2018 [facility] CHEM PANEL Potassium Lvl 4.4 3.5 - 5.1 05/08/2018 [facility] CHEM PANEL Chloride Lvl 106 95 - 109 05/08/2018 [facility] CHEM PANEL CO2 26 24 - 32 05/08/2018 [facility] CHEM PANEL AGAP 14.4 10.0 - 20.0 05/08/2018 [facility] CHEM PANEL Calcium Lvl 9.3 8.5 - 10.5 05/08/2018 [facility] CHEM PANEL Creatinine Lvl 0.64 0.50 - 1.40 05/08/2018 [facility] CHEM PANEL Glucose Lvl 92 70 - 99 05/08/2018 [facility] CHEM PANEL BUN 13 7 - 22 05/08/2018 [facility] CHEM PANEL GGT 20 5 - 85 05/08/2018 [facility] CHEM PANEL Magnesium Lvl 2.0 1.8 - 2.4 05/08/2018 [facility] HEMATOLOGY MCH 29.7 27.0 - 31.0 05/08/2018 [facility] HEMATOLOGY MCV 91.3 80.0 - 98.0 05/08/2018 [facility] HEMATOLOGY Platelet 182 133 - 450 05/08/2018 [facility] HEMATOLOGY MCHC 32.5 32.0 - 36.0 05/08/2018 [facility] HEMATOLOGY MPV 9.5 7.4 - 10.4 05/08/2018 [facility] HEMATOLOGY RBC 3.87 4.20 - 5.40 05/08/2018 [facility] HEMATOLOGY Hgb 11.5 12.0 - 16.0 05/08/2018 [facility] HEMATOLOGY Hct 35.4 36.0 - 48.0 05/08/2018 [facility] HEMATOLOGY RDW 14.6 11.5 - 14.5 05/08/2018 [facility] HEMATOLOGY WBC 5.4 3.7 - 10.4 05/08/2018 [facility] HEMATOLOGY Eosinophils # 0.1 0.0 - 0.5 05/08/2018 [facility] HEMATOLOGY Lymphocytes # 0.7 1.0 - 5.5 05/08/2018 [facility] HEMATOLOGY Monocytes # 0.4 0.0 - 0.8 05/08/2018 [facility] HEMATOLOGY Neutrophils # 4.1 1.5 - 8.1 05/08/2018 [facility] HEMATOLOGY Eosinophils 2.0 0.0 - 4.0 05/08/2018 [facility] HEMATOLOGY Segs 76.2 45.0 - 75.0 05/08/2018 [facility] HEMATOLOGY Lymphocytes 13.3 20.0 - 40.0 05/08/2018 [facility] HEMATOLOGY Monocytes 7.9 2.0 - 12.0 05/08/2018 [facility] HEMATOLOGY Basophils 0.6 0.0 - 1.0 05/08/2018 [facility] CEFTAZIDIME:SUSC:PT:ISOLATE:ORDQN:SHIVANI Culture: Urine >100,000 CFU/mL Escherichia coli 05/03/2018 [facility] CEFTAZIDIME:SUSC:PT:ISOLATE:ORDQN:SHIVANI Escherichia coli Escherichia coli 05/03/2018 [facility] CHEM PANEL eGFR 77 05/03/2018 Result Comment: The eGFR is calculated using the CKD-EPI formula. In most young, healthy individuals the eGFR will be >90 mL/min/1.73m2. The eGFR declines with age. An eGFR of 60-89 may be normal in some populations, particularly the elderly, for whom the CKD-EPI formula has not been extensively validated. Use of the eGFR is not recommended in the following populations:

Individuals with unstable creatinine concentrations, including patients and those with serious co-morbid conditions.

Patients with extremes in muscle mass or diet.

The data above are obtained from the National Kidney Disease Education Program (NKDEP) which additionally recommends that when the eGFR is used in patients with extremes of body mass index for purposes of drug dosing, the eGFR should be multiplied by the estimated BMI. [facility] CHEM PANEL Calcium Lvl 8.7 8.5 - 10.5 05/03/2018 [facility] CHEM PANEL Total Protein 6.1 6.4 - 8.4 05/03/2018 [facility] CHEM PANEL Albumin Lvl 3.4 3.5 - 5.0 05/03/2018 [facility] CHEM PANEL Alk Phos 65 39 - 136 05/03/2018 [facility] CHEM PANEL Bili Total 0.3 0.2 - 1.3 05/03/2018 [facility] CHEM PANEL ALT 13 0 - 65 05/03/2018 [facility] CHEM PANEL AST 10 0 - 37 05/03/2018 [facility] CHEM PANEL CO2 27 24 - 32 05/03/2018 [facility] CHEM PANEL Glucose Lvl 92 70 - 99 05/03/2018 [facility] CHEM PANEL Sodium Lvl 143 135 - 145 05/03/2018 [facility] CHEM PANEL BUN 13 7 - 22 05/03/2018 [facility] CHEM PANEL Potassium Lvl 4.0 3.5 - 5.1 05/03/2018 [facility] CHEM PANEL Creatinine Lvl 0.70 0.50 - 1.40 05/03/2018 [facility] CHEM PANEL Chloride Lvl 110 95 - 109 05/03/2018 [facility] CHEM PANEL AGAP 10.0 10.0 - 20.0 05/03/2018 [facility] CHEM PANEL B/C Ratio 19 6 - 25 05/03/2018 [facility] CHEM PANEL Globulin 2.7 2.7 - 4.2 05/03/2018 [facility] CHEM PANEL A/G Ratio 1.3 0.7 - 1.6 05/03/2018 [facility] CHEM PANEL GGT 23 5 - 85 05/03/2018 [facility] CHEM PANEL Magnesium Lvl 2.1 1.8 - 2.4 05/03/2018 [facility] HEMATOLOGY MPV 9.7 7.4 - 10.4 05/03/2018 [facility] HEMATOLOGY MCH 30.0 27.0 - 31.0 05/03/2018 [facility] HEMATOLOGY MCHC 33.0 32.0 - 36.0 05/03/2018 [facility] HEMATOLOGY RDW 14.4 11.5 - 14.5 05/03/2018 [facility] HEMATOLOGY Platelet 191 133 - 450 05/03/2018 [facility] HEMATOLOGY MCV 90.8 80.0 - 98.0 05/03/2018 [facility] HEMATOLOGY WBC 5.3 3.7 - 10.4 05/03/2018 [facility] HEMATOLOGY RBC 3.88 4.20 - 5.40 05/03/2018 [facility] HEMATOLOGY Hgb 11.6 12.0 - 16.0 05/03/2018 [facility] HEMATOLOGY Hct 35.2 36.0 - 48.0 05/03/2018 [facility] HEMATOLOGY Eosinophils # 0.2 0.0 - 0.5 05/03/2018 [facility] HEMATOLOGY Neutrophils # 3.8 1.5 - 8.1 05/03/2018 [facility] HEMATOLOGY Lymphocytes # 0.8 1.0 - 5.5 05/03/2018 [facility] HEMATOLOGY Monocytes # 0.4 0.0 - 0.8 05/03/2018 [facility] HEMATOLOGY Basophils 0.7 0.0 - 1.0 05/03/2018 [facility] HEMATOLOGY Segs 72.4 45.0 - 75.0 05/03/2018 [facility] HEMATOLOGY Lymphocytes 15.6 20.0 - 40.0 05/03/2018 [facility] HEMATOLOGY Monocytes 8.2 2.0 - 12.0 05/03/2018 [facility] HEMATOLOGY Eosinophils 3.1 0.0 - 4.0 05/03/2018 [facility] URINE AND STOOL UA Bacteria Moderate /HPF None Seen /HPF 05/03/2018 [facility] URINE AND STOOL UA RBC 26 0 - 2 05/03/2018 [facility] URINE AND STOOL UA Mucus Few /LPF None Seen /LPF 05/03/2018 [facility] URINE AND STOOL UA Sq Epi None Seen 05/03/2018 [facility] URINE AND STOOL UA Urobilinogen <=1.0 mg/dL 0.1 - 1.0 05/03/2018 [facility] URINE AND STOOL UA WBC >182 0 - 5 05/03/2018 [facility] URINE AND STOOL UA Leuk Est Large *ABN* (05/03/18 11:06 AM) Negative 05/03/2018 [facility] URINE AND STOOL UA Blood Small *ABN* (05/03/18 11:06 AM) Negative 05/03/2018 [facility] URINE AND STOOL UA Nitrite Positive *ABN* (05/03/18 11:06 AM) Negative 05/03/2018 [facility] URINE AND STOOL UA Turbidity Marked *ABN* (05/03/18 11:06 AM) Clear 05/03/2018 [facility] URINE AND STOOL UA pH 6.0 5.0 - 8.0 05/03/2018 [facility] URINE AND STOOL UA Spec Grav 1.012 <=1.030 05/03/2018 [facility] URINE AND STOOL UA Color Yellow *NA* (05/03/18 11:06 AM) Yellow 05/03/2018 [facility] URINE AND STOOL UA Ketones Negative mg/dL Negative mg/dL 05/03/2018 [facility] URINE AND STOOL UA Glucose Negative mg/dL Negative mg/dL 05/03/2018 [facility] URINE AND STOOL UA Protein 30 mg/dL Negative mg/dL 05/03/2018 [facility] URINE AND STOOL UA Bili Negative *NA* (1/9/19 11:06 AM) Negative 05/03/2018 [facility] CHEM PANEL A/G Ratio 1.2 0.7 - 1.6 04/13/2018 [facility] CHEM PANEL Globulin 3.0 2.7 - 4.2 04/13/2018 [facility] CHEM PANEL B/C Ratio 23 6 - 25 04/13/2018 [facility] CHEM PANEL AGAP 13.0 10.0 - 20.0 04/13/2018 [facility] CHEM PANEL eGFR 79 04/13/2018 Result Comment: The eGFR is calculated using the CKD-EPI formula. In most young, healthy individuals the eGFR will be >90 mL/min/1.73m2. The eGFR declines with age. An eGFR of 60-89 may be normal in some populations, particularly the elderly, for whom the CKD-EPI formula has not been extensively validated. Use of the eGFR is not recommended in the following populations:

Individuals with unstable creatinine concentrations, including patients and those with serious co-morbid conditions.

Patients with extremes in muscle mass or diet.

The data above are obtained from the National Kidney Disease Education Program (NKDEP) which additionally recommends that when the eGFR is used in patients with extremes of body mass index for purposes of drug dosing, the eGFR should be multiplied by the estimated BMI. [facility] CHEM PANEL ALT 12 0 - 65 04/13/2018 [facility] CHEM PANEL Albumin Lvl 3.5 3.5 - 5.0 04/13/2018 [facility] CHEM PANEL Total Protein 6.5 6.4 - 8.4 04/13/2018 [facility] CHEM PANEL Calcium Lvl 8.9 8.5 - 10.5 04/13/2018 [facility] CHEM PANEL AST 14 0 - 37 04/13/2018 [facility] CHEM PANEL Bili Total 0.5 0.2 - 1.3 04/13/2018 [facility] CHEM PANEL Alk Phos 71 39 - 136 04/13/2018 [facility] CHEM PANEL CO2 28 24 - 32 04/13/2018 [facility] CHEM PANEL Potassium Lvl 4.0 3.5 - 5.1 04/13/2018 [facility] CHEM PANEL Chloride Lvl 106 95 - 109 04/13/2018 [facility] CHEM PANEL Creatinine Lvl 0.65 0.50 - 1.40 04/13/2018 [facility] CHEM PANEL Sodium Lvl 143 135 - 145 04/13/2018 [facility] CHEM PANEL Glucose Lvl 91 70 - 99 04/13/2018 [facility] CHEM PANEL BUN 15 7 - 22 04/13/2018 [facility] CHEM PANEL Magnesium Lvl 2.0 1.8 - 2.4 04/13/2018 [facility] CHEM PANEL GGT 29 5 - 85 04/13/2018 [facility] ENDOCRINOLOGY hCG Tot 2 04/13/2018 [facility] HEMATOLOGY MCV 91.7 80.0 - 98.0 04/13/2018 [facility] HEMATOLOGY Hct 36.5 36.0 - 48.0 04/13/2018 [facility] HEMATOLOGY Hgb 11.9 12.0 - 16.0 04/13/2018 [facility] HEMATOLOGY MCH 29.9 27.0 - 31.0 04/13/2018 [facility] HEMATOLOGY Platelet 221 133 - 450 04/13/2018 [facility] HEMATOLOGY RDW 14.6 11.5 - 14.5 04/13/2018 [facility] HEMATOLOGY MPV 9.2 7.4 - 10.4 04/13/2018 [facility] HEMATOLOGY MCHC 32.6 32.0 - 36.0 04/13/2018 [facility] HEMATOLOGY RBC 3.98 4.20 - 5.40 04/13/2018 [facility] HEMATOLOGY WBC 6.1 3.7 - 10.4 04/13/2018 [facility] HEMATOLOGY Segs 71.9 45.0 - 75.0 04/13/2018 [facility] HEMATOLOGY Lymphocytes 15.3 20.0 - 40.0 04/13/2018 [facility] HEMATOLOGY Monocytes 8.2 2.0 - 12.0 04/13/2018 [facility] HEMATOLOGY Eosinophils 3.8 0.0 - 4.0 04/13/2018 [facility] HEMATOLOGY Neutrophils # 4.4 1.5 - 8.1 04/13/2018 [facility] HEMATOLOGY Basophils 0.8 0.0 - 1.0 04/13/2018 [facility] HEMATOLOGY Monocytes # 0.5 0.0 - 0.8 04/13/2018 [facility] HEMATOLOGY Lymphocytes # 0.9 1.0 - 5.5 04/13/2018 [facility] HEMATOLOGY Eosinophils # 0.2 0.0 - 0.5 04/13/2018 [facility] URINE AND STOOL UA Urobilinogen <=1.0 mg/dL 0.1 - 1.0 04/13/2018 [facility] URINE AND STOOL UA Sq Epi 14 04/13/2018 [facility] URINE AND STOOL UA Mucus Few /LPF None Seen /LPF 04/13/2018 [facility] URINE AND STOOL UA WBC 19 0 - 5 04/13/2018 [facility] URINE AND STOOL UA RBC 2 0 - 2 04/13/2018 [facility] URINE AND STOOL UA Leuk Est Moderate *ABN* (04/13/18 12:18 PM) Negative 04/13/2018 [facility] URINE AND STOOL UA Nitrite Negative (04/13/18 12:18 PM) Negative 04/13/2018 [facility] URINE AND STOOL Micro? Performed *NA* (04/13/18 12:18 PM) 04/13/2018 [facility] URINE AND STOOL UA Turbidity Clear (04/13/18 12:18 PM) Clear 04/13/2018 [facility] URINE AND STOOL UA Protein Negative mg/dL Negative mg/dL 04/13/2018 [facility] URINE AND STOOL UA pH 6.5 5.0 - 8.0 04/13/2018 [facility] URINE AND STOOL UA Color Yellow *NA* (04/13/18 12:18 PM) Yellow 04/13/2018 [facility] URINE AND STOOL UA Bili Negative *NA* (04/13/18 12:18 PM) Negative 04/13/2018 [facility] URINE AND STOOL UA Blood Negative (04/13/18 12:18 PM) Negative 04/13/2018 [facility] URINE AND STOOL UA Glucose Negative mg/dL Negative mg/dL 04/13/2018 [facility] URINE AND STOOL UA Ketones Negative mg/dL Negative mg/dL 04/13/2018 [facility] URINE AND STOOL UA Spec Grav 1.011 <=1.030 04/13/2018 [facility] URINE CHEM U Preg Negative (04/13/18 12:18 PM) Negative 04/13/2018 [facility] Pathology Reports No Data Provided for This Section Diagnostic Reports Report Value Date Source Chest Pulmonary Embolism CTA Clinical Indication: - dvt, rule out PE, hx of cancer; Comparison: 05/26/2018 TECHNIQUE: Sequential trans-axial images were obtained thru the chest and upper abdomen after administration of iodinated contrast. CTA protocol was performed with 3-D postprocessing reconstruction MIPs and volume rendering. Coronal and sagittal reconstructions were obtained. 100 cc of nonionic contrast material was used for the exam. Dose: UUK=561.87 mGy-cm CT imaging performed at this location utilizes radiation dose optimization techniques which include one or more of the following: -Automated exposure control -Adjustment of the mA and/or kV according to patient size -Use of iterative reconstruction technique FINDINGS: LUNG PARENCHYMA AND PLEURA: There are no lung nodules. There is no significant interstitial lung disease. There are no pleural effusions. There is no pneumothorax. AIRWAY: The central airway is normal. . MEDIASTINUM: No significant mediastinal lymphadenopathy. HEART: There is no evidence of RV strain. The cardiac chambers are otherwise unremarkable. There is no pericardial effusion. VASCULAR STRUCTURES: There are no segmental pulmonary emboli noted. There is nonocclusive thrombus visualized within the distal aspect of the right main pulmonary artery as it bifurcates. No other thrombus is identified. The great vessels are unremarkable. The thoracic aorta is is free of aneurysm or dissection.. The superior vena cava is unremarkable. OSSEOUS STRUCTURES: There is anterior osteophyte formation and facet arthropathy at multiple levels of the thoracic spine. VISUALIZED UPPER ABDOMEN: The visualized upper abdomen is within normal limits. IMPRESSION: 1. Nonocclusive thrombus visualized within the distal aspect of the right main pulmonary artery. No other subsegmental pulmonary emboli are visualized. 2. Chest CT with contrast within normal limits. These findings were called into Dr. Rose at approximately 4:16 PM 10/12/2017 SL: [id number] 10/20/2018 [facility] Ext Lower Venous Doppler Bilat US Patient Name: ADAM CHAU : 1930; Age: 88 years Female MR: [id number] Study: Ext Lower Venous Doppler Bilat US 10/20/2018 12:09 CDT CLINICAL INDICATION: - DVT. COMPARISON: None TECHNIQUE: Sonographic evaluation of the bilateral lower extremity veins was performed using high resolution B-mode imaging, along with pulse and color Doppler imaging. FINDINGS: Right lower extremity: The common femoral vein, femoral vein, popliteal vein and visualized posterior tibial/calf veins are patent and compressible. The saphenofemoral junction and visualized greater saphenous vein are patent and compressible. Left lower extremity: The common femoral vein and popliteal vein are patent and compressible. The proximal and mid segments of the femoral vein as well as the posterior tibial veins demonstrate intraluminal thrombus and are noncompressible. The saphenofemoral junction and visualized greater saphenous vein are patent and compressible. IMPRESSION: Deep venous thrombosis involving the proximal and mid segments of the left femoral vein as well as the left posterior tibial veins. No evidence of deep venous thrombosis within the right lower extremity. The findings were discussed with Dr. Diez at 1256 on 10/20/2018. Patient was instructed to proceed to the emergency room for further evaluation per Dr. Diez. SL: [id number] 10/20/2018 [facility] Abdomen AP DX EXAM: XR ABDOMEN 1 VIEW DATE: 06/01/2018 12:48 HOST/HOSTESS HEAD INDICATION: - Please assess DHT placement ADDITIONAL INFORMATION: None. COMPARISON: 05/31/2018 TECHNIQUE: Limited AP view of the abdomen for tube placement assessment. Number of images: 1 FINDINGS: Transesophageal feeding tube tip: Feeding tube terminating in the gastric antral region. This may be further advanced. Transesophageal suction tube sidehole: None Other tubes and lines: None. No bowel dilation. IMPRESSION: 1. Feeding tube terminating in the gastric antral region. This may be further advanced. 06/01/2018 [facility] Abdomen AP DX EXAM: XR ABDOMEN 1 VIEW DATE: 05/31/2018 18:19 HOST/HOSTESS HEAD INDICATION: - DHT adjusted: please evaluate placement ADDITIONAL INFORMATION: None. COMPARISON: 05/29/2018 TECHNIQUE: Limited AP view of the abdomen for tube placement assessment. Number of images: 1 FINDINGS: Transesophageal feeding tube tip: Feeding tube is terminating in the distal gastric antrum. Transesophageal suction tube sidehole: None Other tubes and lines: None. No dilated loops of small bowel or colon to the extent imaged. Gaseous distention of transverse colon seen without dilation. IMPRESSION: 1. Tube position as above. 05/31/2018 [facility] Abdomen AP DX EXAM: XR ABDOMEN 1 VIEW DATE: 05/29/2018 7:02 HOST/HOSTESS HEAD INDICATION: Vomiting - To assess DHT placement (Pt vomited with feeds) ADDITIONAL INFORMATION: None. COMPARISON: Abdominal radiograph from 05/23/2018 TECHNIQUE: Limited AP view of the abdomen for tube placement assessment. Number of images: 1 FINDINGS: Transesophageal feeding tube (tip): Pylorus/1st portion of the duodenum. Recommend advancement. Transesophageal suction tube (sidehole): None present. Other tubes, lines and hardware: None. Other: No other changes. IMPRESSION: Tube positions as above. 05/29/2018 [facility] Chest Pulmonary Embolism CTA EXAM: CTA CHEST WITH CONTRAST DATE: 05/26/2018 at 16:25 HOST/HOSTESS HEAD INDICATION: - PE rule out COMPARISON: CT chest from 05/19/2018 TECHNIQUE: Volumetric CT acquisition of the chest, during pulmonary arterial phase, after intravenous contrast. Axial, sagittal, coronal, and oblique MIP reconstructions are created at the acquisition workstation. IV Contrast: 70 mL DLP: 507 mGy-cm FINDINGS: Lower Neck: The visible portions or the lower neck and thyroid are unremarkable. Heart, mediastinum and great Vessels: No pulmonary embolism. Main pulmonary trunk measures 2.9 cm. Borderline cardiomegaly. No pericardial effusion. Thoracic aorta is normal in caliber. Aortic root, thoracic aortic and scattered coronary artery calcifications. Few subcentimeter mediastinal and bilateral hilar lymph nodes which do not meet pathologic CT size criteria. Lungs and Pleura: Tracheostomy tube terminates approximately 4 cm above the andrew. Tracheobronchomalacia. Scattered mucoid secretions are seen distal to the tracheostomy tube extending to the andrew. Few punctate pulmonary nodules measuring up to 4 mm are overall unchanged from prior exams. There are scattered calcified granulomas. There are new small bilateral pleural effusions with bilateral lower lobe consolidation. Other areas of scattered subsegmental atelectasis are seen in the upper lobes. Bones and Soft Tissues: Only partially visualized are postsurgical changes in the lower neck region. Stable skeletal structures compared to CT chest from 05/19/2018. Upper abdomen: Feeding tube is seen coursing to the stomach. Atherosclerotic calcifications of abdominal aorta and branch vessels. IMPRESSION: 1. No pulmonary embolism. 2. New small R>L pleural effusions with bilateral lower lobe consolidation, a combination of compressive atelectasis, with or without superimposed pneumonia. 3. 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 There are abundant mucoid secretions in the distal trachea extending to the andrew. 4. Other findings are unchanged compared to 05/19/2018. 05/26/2018 [facility] Chest 1view DX EXAM: XR CHEST 1 VIEW DATE: 05/25/2018 3:00 HOST/HOSTESS HEAD INDICATION: s/p trach - s/p trach COMPARISON: 05/24/2018 TECHNIQUE: AP chest IMPRESSION: 1. Tracheostomy appliance and feeding tube are stable in position. 2. Hyperinflation of both lungs again seen suggestive of underlying chronic obstructive pulmonary disease. 3. Interval progression in the prominent lung reticulations and peribronchial cuffing suggestive of interstitial pulmonary edema, infection or aspiration pneumonitis. 4. Small left pleural effusion. 5. Osseous structures are stable. 6. Cardiomediastinal silhouette is normal for technique. 05/25/2018 [facility] Chest 1view DX EXAM: XR CHEST 1 VIEW DATE: 05/24/2018 7:14 HOST/HOSTESS HEAD INDICATION: R/O Pneumothorax - R/O Pneumothorax. FINDINGS: Comparison is made to yesterday. Cardiomediastinal silhouette is unchanged. Life support lines and tubes remain in place. Small left pleural effusion. Platelike atelectasis in the left lower lobe. There are skin roc over the soft tissues of the neck. Surgical clips in the left side of the neck and superimposed drain. IMPRESSION: 1. Small left pleural effusion. 2. No pneumothorax identified. 3. Left lower lobe platelike atelectasis. 05/24/2018 [facility] Abdomen AP DX EXAM: XR ABDOMEN 1 VIEW DATE: 05/23/2018 21:37 HOST/HOSTESS HEAD INDICATION: - To evaluate Dobhoff tube placement ADDITIONAL INFORMATION: None. COMPARISON: None. TECHNIQUE: AP view of the abdomen. FINDINGS: IMPRESSION: 1. A Dobbhoff tube is seen with tip overlying the gastric antrum. Recommend further advancement. 05/23/2018 [facility] Chest 1view DX EXAM: XR CHEST 1 VIEW DATE: 05/23/2018 21:37 HOST/HOSTESS HEAD INDICATION: - To evaluate Dobhoff tube placement and assess trach position. FINDINGS: A single AP semierect view of the chest is submitted without a prior chest radiograph for comparison. Correlation is made with the chest CT dated 05/19/2018. The heart may be slightly prominent. Aortic calcifications. Surgical clips over the left side of the There is a tracheostomy tube in place with tip well above the andrew; tip is located 5 cm above the andrew.. Dobbhoff feeding tube goes down the esophagus into the stomach and then out of the [id number]. Small left pleural effusion. Left lower lobe platelike atelectasis. IMPRESSION: 1. Small left pleural effusion. 2. Left lower lobe platelike atelectasis. 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 Reformatted images in the sagittal and coronal plane were included. DLP: 1444 mGy-cm FINDINGS: The size of the left lytic lesion and adjacent soft tissue mass in the left mandible remains similar in appearance as compared to the previous study. The ulceration seen within the mass in the previous CT is no longer identified. Prominent lymph nodes in the left jugulodigastric region, the largest measuring 14 mm in maximum diameter are identified, increased in size as compared to the previous exam. Prominent nodes in the submandibular chain are also identified. Degenerative changes in the cervical spine are demonstrated. The lung apices are unremarkable. IMPRESSION: The lytic lesion and adjacent soft tissue mass in the left mandible remains similar in appearance, although an ulceration within the soft tissue mass is less visible. Interval increase in the number and size of prominent lymph nodes in the left internal jugular and submandibular chains (level 1B and 2). 05/19/2018 [facility] Chest w contrast CT EXAM: CT CHEST WITH CONTRAST DATE: 05/19/2018 13:23 HOST/HOSTESS HEAD INDICATION: Research-Pre Op Research Purposes Dx: Cancer of lower gingiva TECHNIQUE: Volumetric CT acquisition of the chest, following intravenous contrast. Axial, sagittal and coronal reconstructions. Axial MIP reconstructions are created at the acquisition workstation. IV Contrast: 100 mL of Visipaque 320. DLP: 783 mGy-cm COMPARISON: 04/20/2018 FINDINGS: Lines and Tubes: None. Lower Neck: Please refer to the separate report of neck soft tissue CT for further details about the neck findings. Heart and Great Vessels: No cardiomegaly. No pericardial effusion. Moderate calcifications are seen along the proximal portion of the left anterior descending coronary artery. Aortic atherosclerotic disease. Normal size of the ascending aorta and main pulmonary artery. No central pulmonary embolism. Small sliding hiatal hernia is noted. Lymph Nodes: No hilar, mediastinal, axillary or internal mammary lymphadenopathy. Lungs: Multiple bilateral pulmonary nodules are seen in both lungs and annotated on the MIP images measuring up to 4 mm in size and stable compared to the chest CT dated 04/20/2018. No new lung nodules. Pleura: No pleural effusion or pneumothorax. Upper abdomen: Unremarkable. Bones and Soft Tissues: Few old healed fractures of the left ribs noted. Degenerative changes of the thoracic spine. No acute osseous abnormalities. No destructive focal osseous lesions identified. IMPRESSION: 1. Several bilateral pulmonary nodules are noted measuring up to 4 mm in size, stable since 04/20/2018. No new lung nodules. Continued follow-up per oncology protocol is recommended. 2. Please refer to the separate report of neck soft tissue CT for further details about the neck findings. 3. Moderate calcifications are seen along the proximal portion of the left anterior descending coronary artery. 4. Small sliding hiatal hernia. 05/19/2018 [facility] PET CT Head/Neck CA initial staging PET CT Head/Neck CA initial staging TECHNIQUE: 13.9 mCis of FDG were administered intravenously and a series of overlapping images were obtained from the skull base to the proximal thighs utilizing a PET/CT hybrid device. The CT was utilized for attenuation correction and anatomic correlation and not as an independent diagnostic study. 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 Maximum SUV is 20.6 on image 62. Just below this lesion, adjacent to the left submandibular gland, a 1.4 cm lymph node with mild increase in metabolic activity is noted. Maximum SUV is 2.5 on image 65. CHEST: No abnormal activity is noted in the thorax. ABDOMEN AND PELVIS: Colonic diverticulosis. Physiologic activity is visualized in the solid organs, genitourinary tract and gastrointestinal tract. MUSCULOSKELETAL: No abnormal activity is visualized. 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 Local kun disease is noted at the level of the left submandibular gland. No PET/CT evidence for distant metastasis. 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 Coronal and sagittal reconstructions were generated and reviewed. Maximal intensity projection images and 3-D postprocessing reformations were also obtained. CT imaging performed at this location utilizes radiation dose optimization techniques which include one or more of the following: -Automated exposure control -Adjustment of the mA and/or kV according to patient size -Use of iterative reconstruction technique Radiation dose: 554 mGycm IV contrast: 150 cc of Omnipaque 350 FINDINGS: Mild aortoiliac atherosclerosis. The distal abdominal aorta is of normal caliber without evidence of dissection. The bilateral common iliac, bilateral external iliac, and bilateral internal iliac arteries are patent without evidence of significant stenosis or dissection. Right leg: The common femoral and profunda femoral arteries are widely patent. The superficial femoral artery is widely patent. Limited evaluation of the popliteal artery given the artifact from the knee replacement which is otherwise patent. The tibioperoneal trunk is widely patent with excellent three-vessel runoff to the feet via the anterior tibial, posterior tibial, and peroneal arteries. Left leg: The common femoral and profunda femoral arteries are widely patent. The superficial femoral artery is widely patent. Limited evaluation of the popliteal artery given the artifact from the knee replacement which is otherwise patent. The tibioperoneal trunk is widely patent with excellent three-vessel runoff to the feet via the anterior tibial, posterior tibial, and peroneal arteries. Nonvascular: Sigmoid diverticulosis. Slightly eccentric wall thickening of the right anterolateral bladder. Hysterectomy. No acute bony abnormalities. Bilateral knee arthroplasties appear intact. Sclerotic bone island within the right ischium. Degenerative changes of the lower lumbar spine. IMPRESSION: No significant arterial stenosis within the bilateral lower extremities. Sigmoid diverticulosis. Slightly eccentric wall thickening of the right anterolateral bladder likely due to incomplete distention. Cystitis or possibly transitional cell carcinoma are also in the differential. Consider further correlation with urinalysis/cystoscopy. 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 Coronal and sagittal reconstructions were obtained. CONTRAST: 100 cc of IV Omnipaque contrast material was used for the exam. CT Radiation Dose DLP 244 mGy-cm FINDINGS: SOFT TISSUES: There are no neck masses noted. There are no fluid collections or abscess. LYMPH NODES: There is a 1.2 cm left level 1B submandibular node benign in its configuration. Small right 1B nodes are present. Physiologic level 2 nodes are present. SALIVARY GLANDS: The submandibular and parotid glands are unremarkable. PARANASAL SINUSES AND AIRWAY: The paranasal sinuses are clear without soft tissue thickening or air-fluid levels. The nasopharyngeal, oropharyngeal, supraglottic and infraglottic airway is unremarkable. SUPRAHYOID NECK: There is a soft tissue mass density with osteolytic changes of the mental and anterior body the left mandible. There is dehiscence of the inferior medial lateral cortical margin. There is an associated soft tissue mass representing the primary neoplasia. Intrinsic musculature of the tongue is normal. The lingula tonsils are intact. INFRAHYOID NECK: The valleculae and piriform sinuses are normal. The larynx, hypopharynx, epiglottis and supraglottis are normal. ORBITS: The orbital lenses have been resected. There is no retrobulbar are orbital fossa abnormality. The globes are intact. VASCULAR STRUCTURES: The jugular veins and carotid vessels are unremarkable. OSSEOUS STRUCTURES: There is a reversal of the normal cervical lordosis and multilevel discogenic disease is present. At the C5-C6 disc space there is a 4 mm retrolisthesis and fusion of the vertebral bodies and distraction of the facets. There is a 3 mm anterolisthesis at C4-C5 and degenerative narrowing the C3-C4, C4-C5-C6 7 disc spaces. There is degenerative change of the upper cervical facet articulations. There is no osseous metastatic disease. THYROID GLANDS: The thyroid lobes are symmetric and there are no lesions. VISUALIZED LUNG APICES: There are no pulmonary masses or consolidation. If there is further concern for neck masses or malignancy, PET/CT imaging or MRI of the neck should be performed for complete assessment. IMPRESSION: Soft tissue mass and osteolytic change of the anterior body of the mandible is present. Physiologic level 1 and 2 nodes are noted. Multilevel discogenic disease and degenerative facet joint disease is present as described without osseous metastatic disease. 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 imaging performed at this location utilizes radiation dose optimization techniques which include one or more of the following: -Automated exposure control -Adjustment of the mA and/or kV according to patient size -Use of iterative reconstruction technique CT Radiation Dose DLP 292.4 mGy-cm FINDINGS: The lungs are emphysematous with minor interstitial scarring. No metastasis or airspace consolidation is identified. Minor coronary artery calcifications and aortic atherosclerosis are noted. There is no hilar or mediastinal adenopathy. No pleural or pericardial effusion is seen. Images of the upper abdomen are remarkable for a small hiatal hernia and fatty liver. IMPRESSION: 1. No evidence of metastases. 2. Mild emphysema and interstitial scarring. 3. Minor coronary artery calcifications. 4. Mild fatty liver. SL: [id number] 04/20/2018 [facility] Consultation Notes No Data Provided for This Section Discharge Summaries No Data Provided for This Section History and Physicals No Data Provided for This Section Vital Signs Vital Sign Value Date Comments Source Temperature Oral (F) 98 F 10/22/2018 [facility] Systolic (mm Hg) 133 10/22/2018 [facility] Diastolic (mm Hg) 63 10/22/2018 [facility] Respitory Rate 16 10/22/2018 [facility] Heart Rate 88 10/22/2018 [facility] Heart Rate 63 10/22/2018 [facility] Temperature Oral (F) 97.4 F 10/22/2018 [facility] Respitory Rate 14 10/22/2018 [facility] Systolic (mm Hg) 131 10/22/2018 [facility] Diastolic (mm Hg) 77 10/22/2018 [facility] Systolic (mm Hg) 132 10/22/2018 [facility] Diastolic (mm Hg) 59 10/22/2018 [facility] Heart Rate 72 10/22/2018 [facility] Temperature Oral (F) 98.1 F 10/22/2018 [facility] Respitory Rate 18 10/21/2018 [facility] Weight 59.091 10/20/2018 [facility] BMI Calculated 21.68 10/20/2018 [facility] Height 165.1 cm 10/20/2018 [facility] Systolic (mm Hg) 111 09/25/2018 [facility] Diastolic (mm Hg) 64 09/25/2018 [facility] Respitory Rate 18 09/25/2018 [facility] Heart Rate 87 09/25/2018 [facility] Weight 58.182 09/25/2018 [facility] BMI Calculated 22.02 09/25/2018 [facility] Height 162.56 cm 09/25/2018 [facility] BMI Calculated 26.63 06/26/2018 [facility] Weight 68.182 06/26/2018 [facility] Height 160.02 cm 06/26/2018 [facility] Systolic (mm Hg) 129 06/26/2018 [facility] Diastolic (mm Hg) 71 06/26/2018 [facility] Respitory Rate 18 06/26/2018 [facility] Heart Rate 61 06/26/2018 [facility] Systolic (mm Hg) 171 06/03/2018 [facility] Diastolic (mm Hg) 69 06/03/2018 [facility] Heart Rate 71 06/03/2018 [facility] Respitory Rate 22 06/03/2018 [facility] Respitory Rate 20 06/03/2018 [facility] Heart Rate 67 06/03/2018 [facility] Systolic (mm Hg) 160 06/03/2018 [facility] Diastolic (mm Hg) 72 06/03/2018 [facility] Heart Rate 71 06/03/2018 [facility] Respitory Rate 18 06/03/2018 [facility] Systolic (mm Hg) 157 06/03/2018 [facility] Diastolic (mm Hg) 72 06/03/2018 [facility] Temperature Oral (F) 98.8 F 06/01/2018 [facility] Temperature Oral (F) 99.2 F 06/01/2018 [facility] Temperature Oral (F) 98.9 F 05/31/2018 [facility] Height 160.02 cm 05/24/2018 [facility] Height 160.02 cm 05/24/2018 [facility] BMI Calculated 31.38 05/24/2018 [facility] Weight 80.364 05/24/2018 [facility] Height 160.02 cm 05/24/2018 [facility] BMI Calculated 27.87 05/23/2018 [facility] Weight 71.364 05/23/2018 [facility] Weight 72.273 05/17/2018 [facility] BMI Calculated 28.22 05/17/2018 [facility] Encounters Location Location Details Encounter Type Encounter Number Reason For Visit Attending Provider ADM Date DC Date Status Source [facility] Research Patient [id number] Doron Patricia 04/13/2018 07/13/2018 [facility] Research Patient [id number] Doron Patricia 05/01/2018 07/31/2018 [facility] Research Patient [id number] Doron Patricia 05/03/2018 08/02/2018 [facility] Research Patient [id number] Doron Patricia 05/05/2018 08/04/2018 [facility] Research Patient [id number] Doron Patricia 05/08/2018 08/07/2018 [facility] Research Patient [id number] Doron Patricia 05/10/2018 08/09/2018 [facility] Research Patient [id number] Doron Patricia 05/17/2018 08/16/2018 [facility] Research Patient [id number] Doron Patricia 05/19/2018 08/18/2018 [facility] Research Patient [id number] Doron Patricia 05/19/2018 08/18/2018 [facility] Inpatient [id number] Jose Eduardo Diez 05/23/2018 06/03/2018 [facility] Outpatient [id number] Rebeca Malhotra 06/26/2018 06/27/2018 [facility] [id number] Amy Roberts 06/29/2018 07/29/2018 [facility] Research Patient [id number] Doron Patricia 06/29/2018 09/28/2018 [facility] Outpatient [id number] Rebeca Malhotra 09/25/2018 09/26/2018 [facility] [id number] Jose Eduardo Diez 10/20/2018 10/21/2018 [facility] Observation [id number] Rc Osullivan 10/20/2018 10/22/2018 [facility] Procedures Procedure Code Date Perfomer Comments Source Cataract surgery [id number] [facility] Hysterectomy [id number] [facility] Mandibulectomy [id number] [facility] Operation [id number] [facility] Repair of umbilical hernia [id number] [facility] Tonsillectomy [id number] [facility] Cataract surgery [id number] [facility] Hysterectomy [id number] [facility] Operation [id number] [facility] Repair of umbilical hernia [id number] [facility] Tonsillectomy [id number] [facility] Mandibulectomy [id number] [facility] Cataract surgery [id number] [facility] [id number] [facility] Mandibulectomy [id number] [facility] Operation [id number] [facility] Repair of umbilical hernia [id number] [facility] Tonsillectomy [id number] [facility] Assessment and Plan Assessment and Plan Date Source Extracted from:Title: Clinical Document Author: Rc Osullivan MD Date: 10/22/18 Date of discharge: 10/22/2018. Discharge diagnosis *Acute pulmonary embolism *Left lower extremity DVT *Dysphagia *Status post right neck dissection radiation treatment. 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 Plan DVT likely provoked from recent surgery and reduced mobility along with diagnosis of cancer. We will treat with Lovenox 60 mg subcu twice daily. Obtain hematology consultation, likely can be transitioned to Eliquis in a few days. Anemia likely due to low oral intake, iron deficiency and secondary to cancer. We will obtain anemia work-up including ferritin, hemolysis labs. Transfuse if below 7. Resume home medications once reconciled. Dysphagia, poor calorie intake worsened by anorexia also. We will obtain nutrition consultation. Hematology consultation. Patient seen examined 10/21/2018. Patient with acute DVT and pulmonary embolism in the setting of recent treatment for oral cancer and radiation therapy. Shortness of breath is better. Right lower extremity swelling and chronic wound causing discomfort and patient. Will address local wound care. Case discussed with nursing staff at the bedside. I will change Lovenox to renally dose Eliquis and see how she does. Hematology doing work-up for anemia. Case discussed with hematology attending today also. Check hemoglobin tomorrow. DVT prophylaxis: SCDs Disposition: Likely 2 to 3 days of admission. HPI Patient is an 88-year-old woman squamosal carcinoma of the gingiva currently status post radiation treatment and surgical correction right neck dissection and flap creation. Patient comes in with right lower extremity swelling is found to have DVT and acute pulmonary embolus and also. She is treated with Lovenox initially and now is transitioned to Eliquis. Hematology is consulted on the case. She is done well on Eliquis. He would globin remained stable. We have given her instructions about the bleeding risk, fall risk and symptoms to look for. This is also excellent to the family was at bedside. Patient seen and examined on the discharge. Vitals at the time Discharge plan Discharge home Please see discharge medicine form Greater than 35 minutes have been spent in discharge planning and care. Follow-up with primary care physician and Extracted from:Title: Clinical Document Author: Rc Osullivan MD Date: 10/21/18 Progress Note - Daily [facility] Completed: Sep, 18:01 by Rc Osullivan MD RM: 203 - 1P, SE C2B ADAM CHAU 88y (: 1930) F Attending: Rc Osullivan MD Service: Internal Medicine Reason for Admission: ACUTE DEEP VEIN THROMBOSIS OF FEMORAL VEIN OF LEFT Working DRG: Code status: Full Code Current diet: Isolation: No Isolation/Standard Precautions Allergies: sulfa drugs SUBJECTIVE Chart reviewed Patient reports having some discomfort in the right lower extremity. 24hr Labs 10/21 0352 Glucose Lvl 87 BUN 15 Creatinine Lvl 0.61 Sodium Lvl 143 Potassium Lvl 3.5 Chloride Lvl 111 H CO2 26 AGAP 9.5 L Calcium Lvl 8.6 eGFR 81 WBC 3.2 L RBC 2.67 L Hgb 8.3 L Hct 25.1 L MCV 94.0 MCH 31.0 MCHC 33.0 RDW 20.8 H Platelet 169 MPV 9.1 Segs 64.5 Monocytes 13.5 H Lymphocytes 16.1 L Eosinophils 4.9 H Basophils 1.0 Neutrophils # 2.1 Lymphocytes # 0.5 L Monocytes # 0.4 Eosinophils # 0.2 10/20 2057 Ferritin Lvl 123 Iron 42 % Satur Fe 21 TIBC 200 L UIBC 158 Vitamin B12 Lvl >2000 H Retic Auto 1.2 Haptoglobin 216 H Christianson still necessary (Yes/No): Line still necessary (Yes/No): Vitals Tmp(F) Pulse BP RR SpO2 FIO2 10/21 12:00 97.8 72 145/79 18 99 --- 10/21 08:00 97.8 81 137/67 18 98 --- 10/21 04:58 98.5 84 124/68 -- 98 --- 10/21 00:18 97.9 62 132/72 -- 99 --- 10/20 20:08 97.6 93 147/79 -- 99 --- Gen: AAOX3, NAD Neuro: Moving all extremities well CV: RRR, S1 and S2 Lung: CTA-B Abdomen: Non-distended, non-tender, no rebound or gaurding, bowel sounds are present. : no suprapubic region tenderness. No CVA region tenderness. EXT: Bilateral peripheral edema Skin: no rashes or other skin color changes. 24 Hr Tmax: 98.5F (36.94c) at 10/21 04:58 Vital Signs are the last 5 in the past 48 hours. Date Wt(kg) Wt(lb) Ht(cm) Ht(in) Method 10/20 (initial) 59.09 130.00 165.10 65.00 Estimated I&O Record In Out Bal 24hr Tot 0 0 0 24hr Tot 0 0 0 Medications (13) Active Scheduled Meds (7): 10/21/18 docusate 100 mg PO BID 10/21/18 enoxaparin (Lovenox) 60 mg SUB-Q [id number] 10/21/18 hydrALAZINE (hydrALAZINE 50 mg oral tablet) 50 mg PO BID 10/21/18 levothyroxine 100 microgram PO [id number] 10/21/18 losartan 100 mg PO Daily 10/21/18 metoprolol (metoprolol extended release) 50 mg PO Daily 10/21/18 pantoprazole (Protonix) 40 mg PO Daily Unscheduled Meds: None PRN Meds (5): 10/20/18 Dextrose 50% in Water IV (Dextrose 50% Syringe) 12.5 gm IVP PRN 10/20/18 Dextrose 50% in Water IV (Dextrose 50% Syringe) 25 gm IVP PRN 10/20/18 acetaminophen 650 mg PO Q4H 10/20/18 glucagon 1 mg IM PRN 10/20/18 ondansetron 4 mg IVP Q8H One Time Meds (1): 10/20/18 (Completed) enoxaparin (Lovenox) 60 mg SUB-Q ONCE Continuous Infusions: None ASSESSMENT and PLAN *Acute pulmonary embolism *Left lower extremity DVT *Dysphagia *Status post right neck dissection radiation treatment. 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 Plan DVT likely provoked from recent surgery and reduced mobility along with diagnosis of cancer. We will treat with Lovenox 60 mg subcu twice daily. Obtain hematology consultation, likely can be transitioned to Eliquis in a few days. Anemia likely due to low oral intake, iron deficiency and secondary to cancer. We will obtain anemia work-up including ferritin, hemolysis labs. Transfuse if below 7. Resume home medications once reconciled. Dysphagia, poor calorie intake worsened by anorexia also. We will obtain nutrition consultation. Hematology consultation. Patient seen examined 10/21/2018. Patient with acute DVT and pulmonary embolism in the setting of recent treatment for oral cancer and radiation therapy. Shortness of breath is better. Right lower extremity swelling and chronic wound causing discomfort and patient. Will address local wound care. Case discussed with nursing staff at the bedside. I will change Lovenox to renally dose Eliquis and see how she does. Hematology doing work-up for anemia. Case discussed with hematology attending today also. Check hemoglobin tomorrow. DVT prophylaxis: SCDs Disposition: Likely 2 to 3 days of admission. Extracted from:Title: Clinical Document Author: Rc Osullivan MD Date: 10/20/18 Date of admission: 10/20/2018. Discharge diagnoses 1. Acute pulmonary embolism, deep vein thrombosis. 2. 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 History of present illness Mrs. Stratton is an 88-year-old woman with a recent diagnosis of squamous cell carcinoma of the gingiva status post radiation treatment which ended in August 15, 2018, she had a right neck dissection and surgery in May 2018. Patient is brought in by family at the request of her primary surgeons after patient was evaluated for bilateral lower extremity swelling. Patient is a donor site for the right neck flap is from the right lower extremity. Patient has noted some swelling in the right lower extremity more than the left for the past several days. A Doppler ultrasound was done as outpatient which showed deep vein thrombosis in the left leg and therefore was sent to the ER. In the ER patient is found to have the deep vein thrombosis involving the proximal and mid segments of the left femoral vein and the left posterior tibial veins along with the right lung pulmonary embolism. Patient reports feeling short of breath but not unusually so. Patient reports no chest pain or pleuritic type discomfort. Denies having any cough or hemoptysis. Patient has had significant weight loss since the radiation treatment and oral intake have been low per the family. Patient reports anorexia and lack of interest also. Past medical history 1. History of atrial fibrillation currently not on treatment 2. 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 Anemia 4. Hypertension 5. Hypothyroidism. Medications at home: Please see admission medicine form. Past surgical history 1. Right neck dissection 2. Hysterectomy 3. Bladder surgery. Social history: Denies any tobacco alcohol use in the past. Review of system: As per HPI. Family history: Reviewed but noncontributory. Physical examination vitals overall stable, afebrile, not tachycardic. Gen: AAOX3, NAD Neuro: Moving all extremities well CV: RRR, S1 and S2 Lung: CTA-B Abdomen: Non-distended, non-tender, no rebound or gaurding, bowel sounds are present. : no suprapubic region tenderness. No CVA region tenderness. EXT: no peripheral edema. Skin: no rashes or other skin color changes. Diagnostic studies Doppler ultrasound:IMPRESSION: 1. Nonocclusive thrombus visualized within the distal aspect of the right main pulmonary artery. No other subsegmental pulmonary emboli are visualized. 2. Chest CT with contrast within normal limits. CT angiogram: IMPRESSION: 1. Nonocclusive thrombus visualized within the distal aspect of the right main pulmonary artery. No other subsegmental pulmonary emboli are visualized. 2. Chest CT with contrast within normal limits. Laboratory data sodium of 141, GFR of 74, LFTs are normal, hemoglobin of 9.7, white blood cell count of 4.2, platelets of 211. 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 Acute issues *Acute pulmonary embolism *Left lower extremity DVT *Dysphagia *Status post right neck dissection radiation treatment. 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 Plan DVT likely provoked from recent surgery and reduced mobility along with diagnosis of cancer. We will treat with Lovenox 60 mg subcu twice daily. Obtain hematology consultation, likely can be transitioned to Eliquis in a few days. Anemia likely due to low oral intake, iron deficiency and secondary to cancer. We will obtain anemia work-up including ferritin, hemolysis labs. Transfuse if below 7. Resume home medications once reconciled. Dysphagia, poor calorie intake worsened by anorexia also. We will obtain nutrition consultation. Hematology consultation. DVT prophylaxis: SCDs Disposition: Likely 2 to 3 days of admission. 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 - Continue abx perOMFS - DHT for one week andthe re-evaluate for removal - Plan for d/c home with HH. Per HH notes may not be ready until Tuesday. 2.Dysphagia, oropharyngeal(R13.12) - Continue current feeds 3.Hypertension(I10) - Stable 4.Hypothyroid(E03.9) - Synthroid 5.Hyperlipidemia(E78.5) 6.Hypernatremia(E87.0) - Resolved. Patient is medically stable for discharge. Will continue to follow while in- house. Extracted from:Title: Consult Note Author: Acosta Lemos DO Date: 05/31/18 Patient is an 88 year old with PMH HTN, hypothyroid, HLDD, SCC L mandibular gingiva who was admitted for cancer resection with flap placement. 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 q6h flap checks for RN, q 8 for OMFS residents. continue asa / peridex / drains per primary. unasyn per primary 2.Dysphagia, oropharyngeal(R13.12) s/p NGT and doing well on bolus TF. 3.Hypertension(I10) bp elevated. patient states she haswhite coat htn, however, bp persistently elevated. dc ivf. give amlodipine 2.5 x 1 now. monitor bp and adjustfurther as needed 4.Hypothyroid(E03.9) continue synthroid 5.Hyperlipidemia(E78.5) not on statin, likely not indicated @ this time hypernatremia - suspect 2/2 free water depletion. d5 discontinued. free water deficit 3.1 L, will correct with free water 250 q 4 hours today. repeat bmp in am and adjust again further as needed dvt ppx - heparin dispo - per primary hospitalist will continue to follow. please perfectserve with any further questions. Extracted from:Title: OMFS Operative Report Author: Daysi Garibay DDS Date: 05/23/18 weeder thinner OPERATIVE REPORT DATE OF SERVICE: 05/23/2018 PATIENT NAME:ADAM CHAU : 1930 ATTENDING SURGEON: AMY ROBERTS DDS RESIDENT SURGEON: DAYSI GARIBAY DDS, PREOPERATIVE DIAGNOSES: 1. 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 Open tracheostomy 2. Direct laryngoscopy 3. Leftselectiveneck dissection, levels I-IV 4. Composite resection of left mandibular gingiva, floor of mouth, buccal mucosa,including left segmental mandibulectomy and right marginal mandibulectomy 5. AxoGen nerve graft of left inferior alveolar nerve5. Excision of right mandibular gingiva 6. Extraction of teeth #6, 7, 8, 9, 10, 11, 12 7. Alveoloplasty upper right and upper left quadrants ANESTHESIA:Genera endotracheal anesthesia. IV FLUIDS: See anesthesia record. URINE OUTPUT: See anesthesia record. ESTIMATED BLOOD LOSS:500 mL for this portion of the procedure. BLOOD ADMINISTERED/TRANSFUSION:None. DRAINS: None for this portion of the procedure. GRAFTS AND IMPLANTS: 1. AxoGen nerve graft with Avance nerve protector and connectors SPECIMENS:Refer to nursing report - several frozen sections, left mandible composite massresection and right mandible gingiva dysplasiasent for permanent histopathology DISPOSITION: RICU. CONDITION:Stable. COMPLICATIONS:None. FINDINGS: Resection defect with two separate frozen section margins positive for carcinoma and one for dysplasia. Re-excision of positive margins and subsequent frozen sections negative. PAST MEDICAL HISTORY, MEDICATIONS, and ALLERGIES: Reviewed. 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 She was deemed a candidate for the Privo neoadjuvant patch therapy clinical trial which was completed per protocol. Following completion, her surgery was planned. Her tumor was deemedamenable to resection with immediate reconstruction. The surgery was planned virtually with [employer] who fabricated a custom titanium plate and cutting guides for both the fibula and mandible. The completion of the patient's care was to be divided into a tumor resection team (Dr. Roberts) and reconstruction team (Dr. Diez).All therisks, benefits, and alternativesfor the above specified procedureswere discussed.All questions were answered, and thepatient elected to proceed with the above specified procedures. PROCEDURE IN DETAIL:The patient was identified inpre-operative area.The planned procedure and informed consent were verified.The patient was transported tooperating roomand placed on the surgical table in the supine position.All pressurepoints were padded and monitors attached. General anesthesia was induced by the Anesthesia team and anoral endotracheal tube was placed without complication.A surgical time-out was performed again verifying the proper patient, site, and procedures, and all necessary imaging and equipment was available.All were in agreement.The patient was then prepped and draped in t heusualsterile fashionfor the first part of the procedure - open tracheostomy. Two fingerbreadths superiorto the sternal notch was markedin the midlineand thecricoid cartilage was palpated.A 1.5 cm incision was performed through skin, subcutaneous tissue, through the fat to exposed the fascia. Using blunt dissection and electrocautery, dissection was continued layer by layer down to thetrachea. Encountered thyroid gland was cauterized.[employer] retractors were used for visualization and once the pretrachea fasia was reached, it was cleaned aside with kittners. The cricoid was identified and the cricoid hook was inserted. The 1st [id number] tracheal rings were exposed.Anesthesia was notified to reduce the FiO2 and hold ventilation. We accessed the trachea between the2nd/3rd rings using an inverse smile incision. The existing endotracheal tube was visualized and slowly withdrawn to above the tracheotomy. Then areinforced tube was placed, and cuffedinflated, and circuit hooked up to the anesthesia machine. The position was verified with the end tidalCO2, and appropriatetidal volumeswithout leaks. The tube was secured to the chest using 2-0 silk sutures. It showed good hemostasis. At this point, the table was [id number] degrees.Thenwe performed the direct laryngoscopy andprotected theteeth.Exam of the oral cavity and oropharynx and larynx was positive for the already known left mandibular mass.A Sd anterior commissure scope was introduced andbilateral lateral pharyngeal, vallecula, epiglottis, all the way down to the retropharynx, piriform sinuses were inspected. There were no lesions of thearyepiglottic folds, vocal cords, or mucosa.The patient was then re-prepared for both theabaltion and reconstructive parts. Nextattention wasdirected tothe neck. An apron type incision was madefrom the left mastoid to theright paramidline area within an existing skin crease that was >2 cm below the inferior border of the mandible and also away from the prior tracheostomy incision. The incision was carried through subcutaneous tissue, all the way to the platysma muscle. Bovie electrocautery was used for hemostasis.The superior subplatysmal flap was completedto the level of the inferior border of the mandible, and then the the inferior subplatysmal flap was carried to the clavicle with care to preserve andprevent any communication with the tracheostomy.Then, attention to the left neck, performed the fibrofatty tissue flap above the sternocleidomastoid muscle, all the fibrous tracts removed, and the muscle was retracted laterally,to expose thespinal accessory nerve all the way down to his cervical rootlets which were identified and protected. And thenidentified omohyoid muscle inferiorly and the internal jugula r vein. All the fibrofatty tissue of levels 1-3was removed in 1 piece, and sent for permanent histopathology. Then, attention was directed to the level 4. All fibrofatty tissue was removed from the level 4, left side,and sent for final pathology. Then, attention was directed to the level 1A, identifying the inferior border of the mandible and all fibrofatty tissue was removed above the digastrics, connected to the area of the superior omohyoid muscle. Then, all contents of level 1A were tucked inferiorly, and all blood vessels encountered were ligated, , and identified as submandibular level 1B, all fibrofatty tissue with multiple perifacial lymph nodes were included, and removed as 1 separate piece of level 1A, 1B. Then, attention was directed to the levels 2A and 2B, withlymph nodes, were dissected and preserved and kept intact, and following the posterior belly of the digastrics, the internal jugular vein, as well as spinal accessory nerve, and connected to level 2B, and removed as 1 piece, with maintaining thelymph nodes in continuity, as well as intact without any violation.This partly com pleted neck dissection of levels 1A, 1B, 2A and 2B, as well as level 3, and level 4. All fibrofatty tissue up above the internal jugular veinand the carotid was removed, and connected to a level 1B, and removed as 1 piece. All major structures in theleftneck were preserved with exception of themarginal mandibular nerve which was sacrificed as it was adhered to an enlarged lymph node of [place]. However thespinal accessory nerve, internal jugular vein, and common carotid arterywerepreserved internal and external branches, as well as sternocleidomastoid muscle. The area on theleftside showed good hemostasis.Then, atthispoint, we completed our neck dissection on the left side.Valsalvamaneuverperformedwithout any signs of leaks, and the copious amount of irrigation was performed. Nextattention wasdirected to performing our composite resections. Starting on the left side of the oral cavity, a good centimeter margin in theretromolar area, as well as anterior all the way around the mandibular gingiva, buccal mucosa, on the left all the way across the midlineto the right parasymphyseal arearight side and back around the floor of mouth circumferentiallyto connect to the retromolar area, and dissected full thickness to expose the inferior border of the mandiblewith agood cuff of soft tissuearoundthe mandible as a centimetermargin. Then at the planned osteotomy sites, the [facility] custom osteotomy guides were secured to the mandible and the osteotomies cut using an oscillating saw. The custom plate screw holes were also pre-drilled on the proximal and distal segments. The left osteotomy was vertial at the mid ramus and the right osteotomy was in the parasymphysis region. Once the composite specimen was free dissected free of all remaining soft tissue and muscle attachments, it was sent for permanent histopathology. Good hemostasis was obtained with electrocautery. Thenmultiple frozen sections circumferentially were obtained. Next, the right mandibular gingiva with previous severe dysplasia was excised down to bone and including periosteum. Additional frozen margins were sent from this specimen as well. At this point while waiting for frozen section margins to be reported, the proximal inferior alveolar nerve was identified as well as the terminal branch mental nerve stump entering the soft tissue of the lip and chin. On the back table, the AxoGen nerve graft was prepared. A nerve protector was placed as well as nerve connectors. These proximal stump was placed abutting the graft within the connector using 8-0 nylon suture and the same for the graft meeting the mental nerve stump. Upon receipt of the frozen margin reports, there were two margins positive for carcinoma - the right margin adjacent the prior severe dysplastic tissue and the left retromolar area. The left buccal margin was also positive for focal severe dysplasia. In the area of positive carcinoma margins, a new 1 centimeter margin was obtained and sent for permanent histopatholgy with new circumferential frozen margins. The left buccal dysplastic tissue was excised further and sent for permanent histopathology. These new frozen margins all returned negative for dysplasia or carcinoma. At that point, we performed a copious amount of irrigation. The surgical area showed good hemostasis. Attention was back to perform teeth extractions. All the remaining maxillary teeth #6-12 were removed using elevator and forceps, alveoloplasty performed with rongeurs and bone file, and gingivaclosed primarily using 3-0 chromic gut suture.Hemostasis was confirmed from all operative sites.The patient was turned over to the reconstructive team for completion of theoverall case.All counts were correct.Dr. Roberts waspresentfor theentire procedure. Daysi Garibay DDS, MD I was present and available for the entire procedure and preformed or assisted on the medina elements. I agree with Dr. Glass findings and verify his dictation. Amy Roberts DDS 06/03/2018 [facility] Plan of Care No Data Provided for This Section Social History Social History Date Source Social History TypeResponse Substance Abuse Use: None. Alcohol Never Smoking Status Never smoker; Ready to change: No; Concerns about tobacco use in household: No; Exposure to Tobacco Smoke None; Cigarette Smoking Last 365 Days No; Reg Smoking Cessation Counseling No entered on: 09/25/18 05/17/2018 [facility] Social History TypeResponse Substance Abuse Use: None. Alcohol Never Smoking Status Never smoker; Ready to change: No; Concerns about tobacco use in household: No; Exposure to Tobacco Smoke None; Cigarette Smoking Last 365 Days No; Reg Smoking Cessation Counseling No entered on: 09/25/18 05/17/2018 [facility] Social History TypeResponse Substance Abuse Use: None. Alcohol Never Smoking Status Never smoker; Exposure to Tobacco Smoke None; Cigarette Smoking Last 365 Days No; Reg Smoking Cessation Counseling No entered on: 10/20/18 05/17/2018 [facility] Family History No Data Provided for This Section Advance Directives No Data Provided for This Section Functional Status No Data Provided for This Section
--- OUTSIDE RECORDS SUMMARY | 2018-11-04 20:32 | XMS REPORT | Summary of Care ---
Author Author [facility] Organization [facility] Address Unknown Phone Unavailable Encounter ELVIRA Kwon(JOSEPH) [id number] Date(s): 05/17/18 - 08/15/[address] [address] [phone] Attending Physician: Doron Patricia DDS, MD Vital Signs No data available for this section Problem List Condition Effective Dates Status Health Status Informant Impaired Active mobility(Confirmed) Allergies, Adverse Reactions, Alerts Substance Reaction Severity Status sulfa drugs Active Medications aspirin 81 mg tablet, enteric coated 81 mg=1 tab, PO, Daily, # 90 tab, 3 Refill(s) Start Date: 05/17/18 Status: Ordered hydrALAZINE 50 mg oral tablet 50 mg=1 tab, PO, BID, 0 Refill(s) Start Date: 05/17/18 Status: Ordered levothyroxine 100 mcg (0.1 mg) oral tablet 100 microgram=1 tab, PO, Daily, # 90 tab, 1 Refill(s) Start Date: 05/17/18 Status: Ordered losartan 100 mg oral tablet 100 mg=1 tab, PO, Daily, # 90 tab, 3 Refill(s) Start Date: 05/17/18 Status: Ordered metoprolol tartrate 50 mg oral tablet 50 mg=1 tab, PO, Daily, 0 Refill(s) Start Date: 05/17/18 Stop Date: 05/23/18 Status: Deleted omeprazole 20 mg oral enteric coated tablet 20 mg=1 tab, PO, Daily, # 30 tab, 3 Refill(s) Start Date: 05/17/18 Status: Ordered Results ELECTROLYTES Most recent to 1 oldest [Reference Range]: Sodium Lvl [135-145 142 mEq/L mEq/L] (05/17/18 11:22 AM) Potassium Lvl 4.0 mEq/L [3.5-5.1 mEq/L] (05/17/18 11:22 AM) Chloride Lvl [95-109 109 mEq/L mEq/L] (05/17/18 11: AM) CO2 [24-32 mEq/L] 28 mEq/L (05/17/18 11: AM) AGAP [10.0-20.0 9.0 mEq/L mEq/L] *LOW* (05/17/18 AM) CHEM PANEL Most recent to 1 oldest [Reference Range]: Creatinine Lvl 0.73 mg/dL [0.50-1.40 mg/dL] (05/17/18 11: AM) eGFR 73 mL/min/1.73m2 1 *NA* (05/17/18: AM) BUN [7-22 mg/dL] 13 mg/dL (05/17/18 11: AM) B/C Ratio [6-25] 18 (05/17/18 11: AM) Glucose Lvl [70-99 90 mg/dL mg/dL] (05/17/18: AM) Total Protein 6.1 g/dL [6.4-8.4 g/dL] *LOW* (05/17/18: AM) Albumin Lvl [3.5-5.0 3.1 g/dL g/dL] *LOW* (05/17/18: AM) Globulin [2.7-4.2 3.0 g/dL g/dL] (05/17/18 11: AM) A/G Ratio [0.7-1.6] 1.0 (05/17/18 11: AM) Calcium Lvl 8.8 mg/dL [8.5-10.5 mg/dL] (05/17/18 11: AM) Magnesium Lvl 1.8 mg/dL [1.8-2.4 mg/dL] (05/17/18 11:22 AM) ALT [0-65 unit/L] 10 unit/L (05/17/18 11:22 AM) AST [0-37 unit/L] 14 unit/L (05/17/18 11:22 AM) GGT [5-85 unit/L] 22 unit/L (05/17/18 11:22 AM) Alk Phos [39-136 62 unit/L unit/L] (05/17/18 11:22 AM) Bili Total [0.2-1.3 0.3 mg/dL mg/dL] (05/17/18 11:22 AM) 1Result Comment: The eGFR is calculated using the [...] from the National Kidney Disease Education Program ( NKDEP) which additionally recommends that when the eGFR is used in patients with extremes of body mass index for purposes of drug dosing, the eGFR should be mul tiplied by the estimated BMI. URINE AND STOOL Most recent to 1 oldest [Reference Range]: UA Turbidity [Clear] Clear (05/17/18 11:22 AM) UA Color [Yellow] Yellow *NA* (05/17/18 11:22 AM) UA pH [5.0-8.0] 6.0 (05/17/18 11:22 AM) UA Spec Grav 1.008 [<=1.030] (05/17/18 11:22 AM) UA Glucose [Negative Negative mg/dL mg/dL] *NA* (05/17/18 11:22 AM) UA Blood [Negative] Negative (05/17/18 11:22 AM) UA Ketones [Negative Negative mg/dL mg/dL] *NA* (05/17/18 11:22 AM) UA Protein [Negative 10 mg/dL mg/dL] *ABN* (05/17/18 11:22 AM) UA Urobilinogen <=1.0 mg/dL [0.1-1.0 mg/dL] *NA* (05/17/18 11:22 AM) UA Bili [Negative] Negative *NA* (05/17/18 11:22 AM) UA Leuk Est Small [Negative] *ABN* (05/17/18 11:22 AM) UA Nitrite Negative [Negative] (05/17/18 11:22 AM) UA WBC [0-5 /HPF] 20 /HPF *HI* (05/17/18 11:22 AM) UA RBC [0-2 /HPF] <1 /HPF (05/17/18 11:22 AM) UA Bacteria [None Occasional /HPF Seen /HPF] *NA* (05/17/18 11:22 AM) UA Sq Epi [Few /LPF] Occasional /LPF *NA* (05/17/18 11:22 AM) UA Amorph Jessica [None Occasional /HPF Seen /HPF] *NA* (05/17/18 11:22 AM) UA Renal Epi [<=0] RARE *NA* (05/17/18 11:22 AM) UA Mucus [None Seen Few /LPF /LPF] *NA* (05/17/18 11:22 AM) Micro? Performed *NA* (05/17/18 11:22 AM) HEMATOLOGY Most recent to 1 oldest [Reference Range]: WBC [3.7-10.4 K/CMM] 5.3 K/CMM (05/17/18 11:22 AM) RBC [4.20-5.40 3.71 M/CMM M/CMM] *LOW* (05/17/18 11:22 AM) Hgb [12.0-16.0 g/dL] 11.0 g/dL *LOW* (05/17/18 11:22 AM) Hct [36.0-48.0 %] 33.3 % *LOW* (05/17/18 11:22 AM) MCV [80.0-98.0 fL] 89.8 fL (05/17/18 11:22 AM) MCH [27.0-31.0 pg] 29.7 pg (05/17/18 11:22 AM) MCHC [32.0-36.0 33.1 g/dL g/dL] (05/17/18 11:22 AM) RDW [11.5-14.5 %] 14.3 % (05/17/18 11:22 AM) MPV [7.4-10.4 fL] 9.3 fL (05/17/18 11:22 AM) Platelet [133-450 207 K/CMM K/CMM] (05/17/18 11:22 AM) Segs [45.0-75.0 %] 70.3 % (05/17/18 11:22 AM) Lymphocytes 16.5 % [20.0-40.0 %] *LOW* (05/17/18 11:22 AM) Monocytes [2.0-12.0 8.9 % %] (05/17/18 11:22 AM) Eosinophils [0.0-4.0 3.3 % %] (05/17/18 11:22 AM) Basophils [0.0-1.0 1.0 % %] (05/17/18 11:22 AM) Neutrophils # 3.8 K/CMM [1.5-8.1 K/CMM] (05/17/18 11:22 AM) Lymphocytes # 0.9 K/CMM [1.0-5.5 K/CMM] *LOW* (05/17/18 11:22 AM) Monocytes # [0.0-0.8 0.5 K/CMM K/CMM] (05/17/18 11:22 AM) Eosinophils # 0.2 K/CMM [0.0-0.5 K/CMM] (05/17/18 11:22 AM) Basophils # [0.0-0.2 0.1 K/CMM K/CMM] (05/17/18 11:22 AM) Immunizations No data available for this section Procedures Procedure Date Related Diagnosis Body Site Status Cataract surgery Completed Hysterectomy Completed Mandibulectomy Completed Operation Completed Operation Completed Repair of umbilical hernia Completed Tonsillectomy Completed Social History Social History Type Response Substance Abuse Use: None. Alcohol Never Smoking Status Never smoker; Ready to change: No; Exposure to Tobacco Smoke None; Cigarette Smoking Last 365 Days No; Reg Smoking Cessation Counseling No entered on: 06/26/18 Assessment and Plan No data available for this section
--- OUTSIDE RECORDS SUMMARY | 2018-11-04 20:33 | XMS REPORT | Summary of Care ---
Author Author [facility] Organization [facility] Address Unknown Phone Unavailable Encounter HQ Cristinar_noni(FIN) [id number] Date(s): 05/19/18 - 08/17/18 [facility] [address] [place] [id number] Attending Physician: Doron Patricia DDS, MD Vital Signs No data available for this section Problem List Condition Effective Dates Status Health Status Informant Impaired Active mobility(Confirmed) Allergies, Adverse Reactions, Alerts Substance Reaction Severity Status sulfa drugs Active Medications No data available for this section Results No data available for this section Immunizations No data available for this section [...]
--- OUTSIDE RECORDS SUMMARY | 2018-11-04 20:33 | XMS REPORT | Summary of Care ---
Author Author [facility] Organization [facility] Address Unknown Phone Unavailable Encounter HQ Sofia_noni(FIN) [id number] Date(s): 05/19/18 - 08/17/18 [facility] [address] [place] [address] [phone] Attending Physician: Doron Patricia DDS, MD Admitting Physician: Doron Patricia DDS, MD Vital Signs [...]
--- OUTSIDE RECORDS SUMMARY | 2018-11-04 20:33 | XMS REPORT | Summary of Care ---
Author Author [facility] Organization [facility] Address Unknown Phone Unavailable Encounter HQ Cristinar_noni(FIN) [id number] Date(s): 05/19/18 - 08/17/18 [facility] [address] [place] [id number] Attending Physician: Doron Patricia DDS, MD Vital [...]
--- OUTSIDE RECORDS SUMMARY | 2018-11-04 20:33 | XMS REPORT | Summary of Care ---
Author Author [facility] Organization [facility] Address Unknown Phone Unavailable Encounter HQ Cristinar_noni(FIN) [id number] Date(s): 05/19/18 - 08/17/18 [facility] [address] [place] [id number] Attending Physician: Doron Patricia DDS, MD Admitting [...]
--- OUTSIDE RECORDS SUMMARY | 2018-11-04 20:33 | XMS REPORT | Summary of Care ---
Author Author [facility] Organization [facility] Address Unknown Phone Unavailable Encounter HQ Cristinar_noni(FIN) [id number] Date(s): 05/19/18 - 08/17/18 [facility] [address] [place] [address] [phone] Attending Physician: Doron Patricia DDS, MD Vital [...]
--- OUTSIDE RECORDS SUMMARY | 2018-11-04 20:33 | XMS REPORT | Summary of Care ---
Author Author [facility] Organization [facility] Address Unknown Phone Unavailable Encounter HQ Cher(JOSEPH) [id number] Date(s): 10/20/18 - 10/20/18 [facility] [address] [place] [address]- Discharge Disposition: Home or Self Care Attending Physician: Jose Eduardo Diez DDS, MD Referring Physician: Jose Eduardo Diez DDS, MD Vital Signs No data available [...] Smoking Cessation Counseling No entered on: 10/20/18 Assessment and Plan No data available for this section
--- OUTSIDE RECORDS SUMMARY | 2018-11-04 20:33 | XMS REPORT | Summary of Care ---
Author Author [facility] Organization [facility] Address Unknown Phone Unavailable Encounter HQ Cristinar_noni(FIN) [id number] Date(s): 05/19/18 - 08/17/18 [facility] [address] [place] [id number] Attending Physician: Doron Patricia DDS, MD Admitting [...]
--- OUTSIDE RECORDS SUMMARY | 2018-11-04 20:33 | XMS REPORT | Summary of Care ---
Author Author [facility] Organization [facility] Address Unknown Phone Unavailable Encounter HQ Sofia_noni(FIN) [id number] Date(s): 05/19/18 - 08/17/18 [facility] [address] [place] [id number] Attending Physician: Doron Patricia DDS, MD Admitting [...]
--- OUTSIDE RECORDS SUMMARY | 2018-11-04 20:33 | XMS REPORT | Summary of Care ---
Author Author [facility] Organization [facility] Address Unknown Phone Unavailable Encounter HQ Cristinar_noni(FIN) [id number] Date(s): 05/19/18 - 08/17/18 [facility] [address] [place] [id number] Attending Physician: Doron Patricia DDS, MD Vital [...]
--- OUTSIDE RECORDS SUMMARY | 2018-11-04 20:34 | XMS REPORT | Summary of Care ---
Author Author [facility] Organization [facility] Address Unknown Phone Unavailable Encounter ELVIRA Kwon(JOSEPH) [id number] Date(s): 10/20/18 - 10/22/18 [facility] [address] [place] [address]- Discharge Disposition: Home or Self Care Attending Physician: Rc Osullivan MD Admitting Physician: Rc Osullivan MD Vital Signs 1 2 3 Most recent to oldest [Reference Range]: 165.1 cm (10/20/18 1:22 PM) Height 98 DegF (10/22/18 10:55 AM) 97.4 DegF (10/22/18 7:27 AM) 98.1 DegF (10/22/18 3:06 AM) Temperature Oral [96.4-99.1 DegF] 133/63 mmHg (10/22/18 10:55 AM) 131/77 mmHg (10/22/18 7:27 AM) 132/59 mmHg (10/22/18 3:06 AM) Blood Pressure [90-140/60-90 mmHg] 16 BRMIN (10/22/18 10:55 AM) 14 BRMIN (10/22/18 7:27 AM) 18 BRMIN (10/21/18 6:41 PM) Respiratory Rate [14-20 BRMIN] 88 bpm (10/22/18 10:55 AM) 63 bpm (10/22/18 7:27 AM) 72 bpm (10/22/18 3:06 AM) Peripheral Pulse Rate [60-100 bpm] 59.091 kg (10/20/18 1:22 PM) Weight 21.68 m2 (10/20/18 1:22 PM) Body Mass Index Problem List Condition Effective Dates Status Health Status Informant Impaired Active mobility(Confirmed) Allergies, Adverse Reactions, Alerts Substance Reaction Severity Status sulfa drugs Active Medications acetaminophen 650 mg, 2 tab, Route: PO, Drug form: TAB, Q4H, Dosing Weight 59.091, kg, PRN Jimmy n 1-3/Temp > 100.4 F, Start date: 10/20/18 18:08:00 CDT, Duration: 30 day, Stop date: 11/19/18 18:07:00 CDT, 0 Notes: Do not exceed 4 gm/day. (Same as: Tylenol) Start Date: 10/20/18 Stop Date: 10/22/18 Status: Discontinued apixaban 5 mg oral tablet 5 mg=1 tab, PO, Q12H, # 60 tab, 2 Refill(s), Pharmacy: [id number] Start Date: 10/22/18 Stop Date: 01/20/19 Status: Ordered Dextrose 50% Syringe 25 gm, 50 mL, Route: IVP, Drug Form: INJ, Dosing Weight 59.091, kg, PRN, PRN Blo od Glucose Results, Start date: 10/20/18 18:08:00 CDT, Duration: 30 day, Stop da te: 11/19/18 18:07:00 CDT, 0 Start Date: 10/20/18 Stop Date: 10/22/18 Status: Discontinued Dextrose 50% Syringe 12.5 gm, 25 mL, Route: IVP, Drug Form: INJ, Dosing Weight 59.091, kg, PRN, PRN B lood Glucose Results, Start date: 10/20/18 18:08:00 CDT, Duration: 30 day, Stop date: 11/19/18 18:07:00 CDT, 0 Start Date: 10/20/18 Stop Date: 10/22/18 Status: Discontinued docusate 100 mg, 1 cap, Route: PO, Drug form: CAP, BID, Dosing Weight 59.091, kg, Start d ate: 10/21/18 9:00:00 CDT, Duration: 30 day, Stop date: 11/19/18 17:00:00 CDT, 0 Notes: (Same as: Colace) (Do Not Crush) Start Date: 10/21/18 Stop Date: 10/22/18 Status: Discontinued Eliquis 5 mg, 1 tab, Route: PO, Drug form: TAB, Q12H, Dosing Weight 59.091, kg, Start da te: 10/21/18 21:00:00 CDT, Duration: 30 day, Stop date: 11/20/18 9:00:00 CDT, 0 Notes: Same as: Eliquis Start Date: 10/21/18 Stop Date: 10/22/18 Status: Discontinued glucagon 1 mg, Route: IM, Drug form: PDR/INJ, PRN, Dosing Weight 59.091, kg, PRN Blood Gl ucose Results, Start date: 10/20/18 18:08:00 CDT, Duration: 30 day, Stop date: 0 11/19/18 18:07:00 CDT, 0 Start Date: 10/20/18 Stop Date: 10/22/18 Status: Discontinued hydrALAZINE 50 mg oral tablet 50 mg, 1 tab, Route: PO, Drug form: TAB, BID, Dosing Weight 59.091, kg, Start da te: 10/21/18 9:00:00 CDT, Duration: 30 day, Stop date: 11/19/18 17:00:00 CDT, 0 Notes: (Same as: Apresoline) May interfere w/enteral feedings Take With Food Start Date: 10/21/18 Stop Date: 10/22/18 Status: Discontinued levothyroxine 100 microgram, 1 tab, Route: PO, Drug form: TAB, [id number], Dosing Weight 59.091, k g, Start date: 10/21/18 6:30:00 CDT, Duration: 30 day, Stop date: 11/19/18 6:30: 00 CDT, 0 Notes: Take 1 hour before or 2 hours after meal; Enteral feeds may interefere wi th the absorption of this medication. (Same as:Levothroid, Synthroid) Start Date: 10/21/18 Stop Date: 10/22/18 Status: Discontinued losartan 100 mg, 2 tab, Route: PO, Drug form: TAB, Daily, Dosing Weight 59.091, kg, Start date: 10/21/18 9:00:00 CDT, Duration: 30 day, Stop date: 11/19/18 9:00:00 CDT, 0 Notes: (Same as: Cozaar) Start Date: 10/21/18 Stop Date: 10/22/18 Status: Discontinued Lovenox 60 mg, 0.6 mL, Route: SUB-Q, Drug form: INJ, [id number], Dosing Weight 59.091, kg, Start date: 10/21/18 6:00:00 CDT, Duration: 30 day, Stop date: 11/19/18 18:00:00 CDT, 0 Notes: Nurse to ensure documentation of patient education per anticoagulation po licy. (Same as: Lovenox) Start Date: 10/21/18 Stop Date: 10/21/18 Status: Discontinued Lovenox 60 mg, 0.6 mL, Route: SUB-Q, Drug form: INJ, ONCE, Dosing Weight 59.091, kg, Sultana ority: STAT, Start date: 10/20/18 17:28:00 CDT, Stop date: 10/20/18 17:28:00 CDT , 0 Notes: Nurse to ensure documentation of patient education per anticoagulation po licy. (Same as: Lovenox) Start Date: 10/20/18 Stop Date: 10/20/18 Status: Completed metoprolol extended release 50 mg, 1 tab, Route: PO, Drug form: ERTAB, Daily, Start date: 10/21/18 9:00:00 C DT, Duration: 30 day, Stop date: 11/19/18 9:00:00 CDT, 0 Notes: (Same as: Toprol XL) May split tab, but do not crush. Start Date: 10/21/18 Stop Date: 10/22/18 Status: Discontinued omeprazole 20 mg, Route: PO, Drug form: ECTAB, Daily, Dosing Weight 59.091, kg, Start date: 10/21/18 9:00:00 CDT, Duration: 30 day, Stop date: 11/19/18 9:00:00 CDT Start Date: 10/21/18 Stop Date: 10/20/18 Status: Deleted ondansetron 4 mg, 2 mL, Route: IVP, Drug form: INJ, Q8H, Dosing Weight 59.091, kg, PRN Nause a & Vomiting, Start date: 10/20/18 18:08:00 CDT, Duration: 30 day, Stop date: 11/19/18 18:07:00 CDT, 0 Notes: (Same as: Zofran) MEDICATION WASTE Product Size: 4 mgProduct Was bren: ___ mg Start Date: 10/20/18 Stop Date: 10/22/18 Status: Discontinued pantoprazole 40 mg oral enteric coated tablet 40 mg=1 tab, PO, Daily, 0 Refill(s) Start Date: 10/22/18 Status: Ordered Protonix 40 mg, 1 tab, Route: PO, Drug form: ECTAB, Daily, Start date: 10/21/18 9:00:00 C DT, Duration: 30 day, Stop date: 11/19/18 9:00:00 CDT, 0 Notes: Tablet should not be chewed or crushed.(Same as: Protonix) Start Date: 10/21/18 Stop Date: 10/22/18 Status: Discontinued Results 1 2 3 Most recent to oldest [Reference Range]: 2.1 K/CMM (10/21/18 3:52 AM) 3.0 K/CMM (10/20/18 1:25 PM) Neutrophils # [1.5-8.1 K/CMM] 0.5 K/CMM *LOW* (10/21/18 3:52 AM) 0.7 K/CMM *LOW* (10/20/18 1:25 PM) Lymphocytes # [1.0-5.5 K/CMM] 0.4 K/CMM (10/21/18 3:52 AM) 0.4 K/CMM (10/20/18 1:25 PM) Monocytes # [0.0-0.8 K/CMM] 0.2 K/CMM (10/21/18 3:52 AM) 0.1 K/CMM (10/20/18 1:25 PM) Eosinophils # [0.0-0.5 K/CMM] 81 mL/min/1.73m2 1 *NA* (10/21/18 3:52 AM) 74 mL/min/1.73m2 2 *NA* (10/20/18 1:25 PM) eGFR 21 % (10/20/18 8:58 PM) % Satur Fe [12-57 %] 0.9 (10/20/18 1:25 PM) A/G Ratio [0.7-1.6] 2.8 g/dL *LOW* (10/20/18 1:25 PM) Albumin Lvl [3.5-5.0 g/dL] 69 unit/L (10/20/18 1:25 PM) Alk Phos [39-136 unit/L] 13 unit/L (10/20/18 1:25 PM) ALT [0-65 unit/L] 9.5 mEq/L *LOW* (10/21/18 3:52 AM) 10.8 mEq/L (10/20/18 1:25 PM) AGAP [10.0-20.0 mEq/L] 18 unit/L (10/20/18 1:25 PM) AST [0-37 unit/L] 25 (10/20/18 1:25 PM) B/C Ratio [6-25] 1.0 % (10/21/18 3:52 AM) 0.7 % (10/20/18 1:25 PM) Basophils [0.0-1.0 %] 15 mg/dL (10/21/18 3:52 AM) 18 mg/dL (10/20/18 1:25 PM) BUN [7-22 mg/dL] 8.6 mg/dL (10/21/18 3:52 AM) 9.2 mg/dL (10/20/18 1:25 PM) Calcium Lvl [8.5-10.5 mg/dL] 111 mEq/L *HI* (10/21/18 3:52 AM) 109 mEq/L (10/20/18 1:25 PM) Chloride Lvl [95-109 mEq/L] 26 mEq/L (10/21/18 3:52 AM) 25 mEq/L (10/20/18 1:25 PM) CO2 [24-32 mEq/L] 0.61 mg/dL (10/21/18 3:52 AM) 0.73 mg/dL (10/20/18 1:25 PM) Creatinine Lvl [0.50-1.40 mg/dL] 4.9 % *HI* (10/21/18 3:52 AM) 2.9 % (10/20/18 1:25 PM) Eosinophils [0.0-4.0 %] 123 ng/mL (10/20/18 8:58 PM) Ferritin Lvl [5-204 ng/mL] 3.2 g/dL (10/20/18 1:25 PM) Globulin [2.7-4.2 g/dL] 87 mg/dL (10/21/18 3:52 AM) 89 mg/dL (10/20/18 1:25 PM) Glucose Lvl [70-99 mg/dL] 216 mg/dL *HI* (10/20/18 8:58 PM) Haptoglobin [16-200 mg/dL] 25.1 % *LOW* (10/21/18 3:52 AM) 30.3 % *LOW* (10/20/18 1:25 PM) Hct [36.0-48.0 %] 8.5 g/dL *LOW* (10/22/18 4:35 AM) 8.3 g/dL *LOW* (10/21/18 3:52 AM) 9.7 g/dL *LOW* (10/20/18 1:25 PM) Hgb [12.0-16.0 g/dL] 1.05 (10/20/18 1:25 PM) INR [0.85-1.17] 42 ug/dl (10/20/18 8:58 PM) Iron [30-160 ug/dl] 3.5 mEq/L (10/21/18 3:52 AM) 3.8 mEq/L (10/20/18 1:25 PM) Potassium Lvl [3.5-5.1 mEq/L] 16.1 % *LOW* (10/21/18 3:52 AM) 16.1 % *LOW* (10/20/18 1:25 PM) Lymphocytes [20.0-40.0 %] 31.0 pg (10/21/18 3:52 AM) 30.5 pg (10/20/18 1:25 PM) MCH [27.0-31.0 pg] 33.0 g/dL (10/21/18 3:52 AM) 32.2 g/dL (10/20/18 1:25 PM) MCHC [32.0-36.0 g/dL] 94.0 fL (10/21/18 3:52 AM) 94.9 fL (10/20/18 1:25 PM) MCV [80.0-98.0 fL] 13.5 % *HI* (10/21/18 3:52 AM) 9.2 % (10/20/18 1:25 PM) Monocytes [2.0-12.0 %] 9.1 fL (10/21/18 3:52 AM) 8.8 fL (10/20/18 1:25 PM) MPV [7.4-10.4 fL] 143 mEq/L (10/21/18 3:52 AM) 141 mEq/L (10/20/18 1:25 PM) Sodium Lvl [135-145 mEq/L] 169 K/CMM (10/21/18 3:52 AM) 211 K/CMM (10/20/18 1:25 PM) Platelet [133-450 K/CMM] 64.5 % (10/21/18 3:52 AM) 71.1 % (10/20/18 1:25 PM) Segs [45.0-75.0 %] 6.0 g/dL *LOW* (10/20/18 1:25 PM) Total Protein [6.4-8.4 g/dL] 13.5 seconds (10/20/18 1:25 PM) PT [12.0-14.7 seconds] 28.6 seconds (10/20/18 1:25 PM) PTT [22.9-35.8 seconds] 2.67 M/CMM *LOW* (10/21/18 3:52 AM) 3.19 M/CMM *LOW* (10/20/18 1:25 PM) RBC [4.20-5.40 M/CMM] 20.8 % *HI* (10/21/18 3:52 AM) 21.0 % *HI* (10/20/18 1:25 PM) RDW [11.5-14.5 %] 1.2 % (10/20/18 8:58 PM) Retic Auto [0.5-1.5 %] 0.5 mg/dL (10/20/18 1:25 PM) Bili Total [0.2-1.3 mg/dL] 200 ug/dl *LOW* (10/20/18 8:58 PM) TIBC [228-428 ug/dl] 158 ug/dl (10/20/18 8:58 PM) UIBC [110-370 ug/dl] >2000 pg/mL *HI* (10/20/18 8:58 PM) Vitamin B12 Lvl [254-1320 pg/mL] 3.2 K/CMM *LOW* (10/21/18 3:52 AM) 4.2 K/CMM (10/20/18 1:25 PM) WBC [3.7-10.4 K/CMM] 1Result Comment: The eGFR is calculated using [...] be mul tiplied by the estimated BMI. 2Result Comment: The eGFR is calculated using the [...] be mul tiplied by the estimated BMI. Immunizations No data available for this section [...] No entered on: 10/20/18 Assessment and Plan Extracted from: Title: Clinical Document Author: Rc Osullivan MD Date: [...] Follow-up with primary care physician and Extracted from: Title: Clinical Document Author: Rc Osullivan MD Date: 10/21/18 Progress Note - Daily [facility] Completed: Sep, 18:01 by Rc Osullivan MD RM: 203 - 1P, SE [id number] (: 1930) F Attending: Rc Osullivan MDPhone: Service: Internal Medicine Reason for Admission: ACUTE DEEP VEIN THROMBOSIS OF FEMORAL VEIN OF LEFT Working DRG: Code status: Full CodeCurrent diet: Isolation: No Isolation/Standard Precautions Allergies: sulfa drugs SUBJECTIVE Chart reviewed Patient reports having some discomfort in the right lower extremity. 24hr Labs 10/21 0352 Glucose Lvl87 BUN15 Creatinine Lvl0.61 Sodium Bbh094 Potassium Lvl3.5 Chloride Zbo844 H CO226 AGAP9.5 L Calcium Lvl8.6 eGFR81 WBC3.2 L RBC2.67 L Hgb8.3 L Hct25.1 L MCV94.0 MCH31.0 MCHC33.0 RDW20.8 H Mlmgdhta726 MPV9.1 Segs64.5 Gmuukgfdj84.5 H Cbnjpfenent66.1 L Eosinophils4.9 H Basophils1.0 Neutrophils #2.1 Lymphocytes #0.5 L Monocytes #0.4 Eosinophils #0.2 10/20 2057 Ferritin Enl982 Iron42 % Satur Fe21 AWXK060 L KYRF790 Vitamin B12 Lvl>2000 H Retic Auto1.2 Ujwkueaocbz063 H Christianson still necessary (Yes/No): Line still necessary (Yes/No): VitalsTmp(F)OnyvrQXPMUmB9KLZ0 10/21 12:0097.242594/517525--- 10/21 08:0097.527712/652462--- 10/21 04:5898.624766/68--98--- 10/21 00:1897.483690/72--99--- 10/20 20:0897.563639/79--99--- Gen: AAOX3, NAD Neuro: Moving all extremities well CV: RRR, S1 and S2 Lung: CTA-B Abdomen: Non-distended, non-tender, no rebound or gaurding, bowel sounds are present. : no suprapubic region tenderness. No CVA region tenderness. EXT: Bilateral peripheral edema Skin: no rashes or other skin color changes. 24 Hr Tmax: 98.5F (36.94c) at 10/21 04:58Vital Signs are the last 5 in the past 48 hours. DateWt(kg)Wt(lb)Ht(cm)Ht(in)Method 10/20 (initial) 59.09 130.52637.10 65.00Estimated I&ORecordInOutBal 24hr Tot 0 0 0 24hr Tot 0 0 0 Medications (13) Active Scheduled Meds (7): 10/21/18 docusate 100 mg PO BID 10/21/18 enoxaparin (Lovenox) 60 mg SUB-Q [id number] 10/21/18 hydrALAZINE (hydrALAZINE 50 mg oral tablet) [...] mg SUB-Q ONCE Continuous Infusions: None ASSESSMENT & PLAN *Acute pulmonary embolism *Left lower extremity [...] 2 to 3 days of admission. Extracted from: Title: Clinical Document Author: Rc Osullivan MD Date: [...]
--- OUTSIDE RECORDS SUMMARY | 2018-11-04 20:34 | XMS REPORT | Summary of Care ---
Author Author [facility] Organization [facility] Address Unknown Phone Unavailable Encounter HQ Cher(FIN) [id number] Date(s): 06/29/18 - 09/27/18 [facility] [address] Attending Physician: Doron Patricia DDS, MD Vital Signs No data available for this section Problem List Condition Effective Dates Status Health Status Informant Impaired Active mobility(Confirmed) Allergies, Adverse Reactions, Alerts Substance Reaction Severity Status sulfa drugs Active Medications No data available for this section Results Most recent to 1 oldest [Reference Range]: Neutrophils # 4.2 K/CMM [1.5-8.1 K/CMM] (06/29/18 1:35 PM) Lymphocytes # 1.2 K/CMM [1.0-5.5 K/CMM] (06/29/18 1:35 PM) Monocytes # [0.0-0.8 0.5 K/CMM K/CMM] (06/29/18 1:35 PM) Eosinophils # 0.1 K/CMM [0.0-0.5 K/CMM] (06/29/18 1:35 PM) eGFR 54 mL/min/1.73m2 1 *NA* (06/29/18 1:35 PM) A/G Ratio [0.7-1.6] 1.2 (06/29/18 1:35 PM) Albumin Lvl [3.5-5.0 3.5 g/dL g/dL] (06/29/18 1:35 PM) Alk Phos [39-136 78 unit/L unit/L] (06/29/18 1:35 PM) ALT [0-65 unit/L] 13 unit/L (06/29/18 1:35 PM) AGAP [10.0-20.0 13.0 mEq/L mEq/L] (06/29/18 1:35 PM) AST [0-37 unit/L] 17 unit/L (06/29/18 1:35 PM) B/C Ratio [6-25] 16 (06/29/18 1:35 PM) Basophils [0.0-1.0 0.5 % %] (06/29/18 1:35 PM) BUN [7-22 mg/dL] 15 mg/dL (06/29/18 1:35 PM) Calcium Lvl 9.6 mg/dL [8.5-10.5 mg/dL] (06/29/18 1:35 PM) Chloride Lvl [95-109 106 mEq/L mEq/L] (06/29/18 1:35 PM) CO2 [24-32 mEq/L] 26 mEq/L (06/29/18 1:35 PM) Creatinine Lvl 0.95 mg/dL [0.50-1.40 mg/dL] (06/29/18 1:35 PM) Eosinophils [0.0-4.0 1.7 % %] (06/29/18 1:35 PM) GGT [5-85 unit/L] 25 unit/L (06/29/18 1:35 PM) Globulin [2.7-4.2 3.0 g/dL g/dL] (06/29/18 1:35 PM) Glucose Lvl [70-99 99 mg/dL mg/dL] (06/29/18 1:35 PM) Hct [36.0-48.0 %] 35.6 % *LOW* (06/29/18 1:35 PM) Hgb [12.0-16.0 g/dL] 11.7 g/dL *LOW* (06/29/18 1:35 PM) Potassium Lvl 4.0 mEq/L [3.5-5.1 mEq/L] (06/29/18 1:35 PM) Lymphocytes 20.2 % [20.0-40.0 %] (06/29/18 1:35 PM) MCH [27.0-31.0 pg] 29.1 pg (06/29/18 1:35 PM) MCHC [32.0-36.0 32.8 g/dL g/dL] (06/29/18 1:35 PM) MCV [80.0-98.0 fL] 88.8 fL (06/29/18 1:35 PM) Magnesium Lvl 1.8 mg/dL [1.8-2.4 mg/dL] (06/29/18 1:35 PM) Monocytes [2.0-12.0 7.8 % %] (06/29/18 1:35 PM) MPV [7.4-10.4 fL] 9.7 fL (06/29/18 1:35 PM) Sodium Lvl [135-145 141 mEq/L mEq/L] (06/29/18 1:35 PM) Platelet [133-450 219 K/CMM K/CMM] (06/29/18 1:35 PM) Segs [45.0-75.0 %] 69.8 % (06/29/18 1:35 PM) Total Protein 6.5 g/dL [6.4-8.4 g/dL] (06/29/18 1:35 PM) RBC [4.20-5.40 4.01 M/CMM M/CMM] *LOW* (06/29/18 1:35 PM) RDW [11.5-14.5 %] 16.4 % *HI* (06/29/18 1:35 PM) Bili Total [0.2-1.3 0.4 mg/dL mg/dL] (06/29/18 1:35 PM) UA Bili [Negative] Negative *NA* (06/29/18 1:20 PM) UA Blood [Negative] Negative (06/29/18 1:20 PM) UA CaOx Jessica [None Occasional /HPF Seen /HPF] *NA* (06/29/18 1:20 PM) UA Color [Yellow] Yellow *NA* (06/29/18 1:20 PM) UA Glucose Negative [Negative] *NA* (06/29/18 1:20 PM) UA Hyal Cast [0-2 12 /LPF /LPF] *HI* (06/29/18 1:20 PM) UA Ketones Negative [Negative] *NA* (06/29/18 1:20 PM) UA Leuk Est Negative [Negative] (06/29/18 1:20 PM) UA Mucus [None Seen Few /LPF /LPF] *NA* (06/29/18 1:20 PM) UA Nitrite Negative [Negative] (06/29/18 1:20 PM) UA pH [5.0-8.0] 5.0 (06/29/18 1:20 PM) UA Protein [Negative 30 mg/dL mg/dL] *ABN* (06/29/18 1:20 PM) UA RBC [0-2 /HPF] 2 /HPF (06/29/18 1:20 PM) UA Spec Grav 1.012 [<=1.030] (06/29/18 1:20 PM) UA Sq Epi [Few /LPF] Few /LPF *NA* (06/29/18 1:20 PM) UA Turbidity [Clear] Slight *ABN* (06/29/18 1:20 PM) UA Urobilinogen <1.0 mg/dL [0.1-1.0 mg/dL] (06/29/18 1:20 PM) UA WBC [0-5 /HPF] 3 /HPF (06/29/18 1:20 PM) WBC [3.7-10.4 K/CMM] 6.0 K/CMM (06/29/18 1:35 PM) Micro? Performed (06/29/18 1:20 PM) 1Result Comment: The eGFR is calculated using [...] Smoking Cessation Counseling No entered on: 09/25/18 Assessment and Plan No data available for this section
--- OUTSIDE RECORDS SUMMARY | 2018-11-04 20:34 | XMS REPORT | Summary of Care ---
Author Author [facility] Address Unknown Phone Unavailable Encounter ELVIRA Kwon(JOSEPH) [id number] Date(s): 09/25/18 - 09/25/[address] [facility] [address] [place] [address]- [phone] Discharge Disposition: Home or Self Care Attending Physician: Rebeca Malhotra MD Referring Physician: Rebeca Malhotra MD Vital Signs Most recent to 1 oldest [Reference Range]: Height 162.56 cm (09/25/18 11:07 AM) Blood Pressure 111/64 mmHg [90-140/60-90 mmHg] (09/25/18 11:07 AM) Respiratory Rate 18 BRMIN [14-20 BRMIN] (09/25/18 11:07 AM) Peripheral Pulse 87 bpm Rate [60-100 bpm] (09/25/18 11:07 AM) Weight 58.182 kg (09/25/18 11:07 AM) Body Mass Index 22.02 m2 (09/25/18 11:07 AM) Problem List Condition Effective Dates Status Health Status Informant Impaired Active mobility(Confirmed) Allergies, Adverse Reactions, Alerts Substance Reaction Severity Status sulfa drugs Active Medications No Known Medications Results No data available for this section [...]
--- OUTSIDE RECORDS SUMMARY | 2018-11-04 20:35 | XMS REPORT | Summary of Care ---
Author Author [facility] Address Unknown Phone Unavailable Encounter ELVIRA Kwon(JOSEPH) [id number] Date(s): 06/29/18 - 07/28/18 [id number] [place], [place] [address] Discharge Disposition: Home or Self Care Attending Physician: Greyson Roberts DDS Referring Physician: Greyson Roberts DDS Vital Signs No data available for this [...]
--- OUTSIDE RECORDS SUMMARY | 2018-11-04 20:35 | XMS REPORT | Summary of Care ---
Author Author [facility] Organization [facility] Address Unknown Phone Unavailable Encounter HQ Cristinar_noni(FIN) [id number] Date(s): 05/05/18 - 08/03/18 [facility] [address] [place] [address] [phone] Attending Physician: Doron Patricia DDS, MD Vital [...]
--- OUTSIDE RECORDS SUMMARY | 2018-11-04 20:35 | XMS REPORT | Summary of Care ---
Author Author [facility] Organization [facility] Address Unknown Phone Unavailable Encounter HQ Cher(JOSEPH) [id number] Date(s): 05/03/18 - 08/01/18 [facility] [address] [place], [place] [address]- [phone] Attending Physician: Doron Patricia DDS, MD Vital Signs No data available for this section Problem List Condition Effective Dates Status Health Status Informant Impaired Active mobility(Confirmed) Allergies, Adverse Reactions, Alerts Substance Reaction Severity Status sulfa drugs Active Medications No data available for this section Results ELECTROLYTES Most recent to 1 oldest [Reference Range]: Sodium Lvl [135-145 143 mEq/L mEq/L] (05/03/18 11:08 AM) Potassium Lvl 4.0 mEq/L [3.5-5.1 mEq/L] (05/03/18 11:08 AM) Chloride Lvl [95-109 110 mEq/L mEq/L] *HI* (05/03/18 11:08 AM) CO2 [24-32 mEq/L] 27 mEq/L (05/03/18 11:08 AM) AGAP [10.0-20.0 10.0 mEq/L mEq/L] (05/03/18 11:08 AM) CHEM PANEL Most recent to 1 oldest [Reference Range]: Creatinine Lvl 0.70 mg/dL [0.50-1.40 mg/dL] (05/03/18 11:08 AM) eGFR 77 mL/min/1.73m2 1 *NA* (05/03/18 11:08 AM) BUN [7-22 mg/dL] 13 mg/dL (05/03/18 11:08 AM) B/C Ratio [6-25] 19 (05/03/18 11:08 AM) Glucose Lvl [70-99 92 mg/dL mg/dL] (05/03/18 11:08 AM) Total Protein 6.1 g/dL [6.4-8.4 g/dL] *LOW* (05/03/18 11:08 AM) Albumin Lvl [3.5-5.0 3.4 g/dL g/dL] *LOW* (05/03/18 11:08 AM) Globulin [2.7-4.2 2.7 g/dL g/dL] (05/03/18 11:08 AM) A/G Ratio [0.7-1.6] 1.3 (05/03/18 11:08 AM) Calcium Lvl 8.7 mg/dL [8.5-10.5 mg/dL] (05/03/18 11:08 AM) Magnesium Lvl 2.1 mg/dL [1.8-2.4 mg/dL] (05/03/18 11:08 AM) ALT [0-65 unit/L] 13 unit/L (05/03/18 11:08 AM) AST [0-37 unit/L] 10 unit/L (05/03/18 11:08 AM) GGT [5-85 unit/L] 23 unit/L (05/03/18 11:08 AM) Alk Phos [39-136 65 unit/L unit/L] (05/03/18 11:08 AM) Bili Total [0.2-1.3 0.3 mg/dL mg/dL] (05/03/18 11:08 AM) 1Result Comment: The eGFR is calculated [...] 1 oldest [Reference Range]: UA Turbidity [Clear] Marked *ABN* (05/03/18 11:06 AM) UA Color [Yellow] Yellow *NA* (05/03/18 11:06 AM) UA pH [5.0-8.0] 6.0 (05/03/18 11:06 AM) UA Spec Grav 1.012 [<=1.030] (05/03/18 11:06 AM) UA Glucose [Negative Negative mg/dL mg/dL] *NA* (05/03/18 11:06 AM) UA Blood [Negative] Small *ABN* (05/03/18 11:06 AM) UA Ketones [Negative Negative mg/dL mg/dL] *NA* (05/03/18 11:06 AM) UA Protein [Negative 30 mg/dL mg/dL] *ABN* (05/03/18 11:06 AM) UA Urobilinogen <=1.0 mg/dL [0.1-1.0 mg/dL] *NA* (05/03/18 11:06 AM) UA Bili [Negative] Negative *NA* (05/03/18 11:06 AM) UA Leuk Est Large [Negative] *ABN* (05/03/18 11:06 AM) UA Nitrite Positive [Negative] *ABN* (05/03/18 11:06 AM) UA WBC [0-5 /HPF] >182 /HPF *HI* (05/03/18 11:06 AM) UA RBC [0-2 /HPF] 26 /HPF *HI* (05/03/18 11:06 AM) UA Bacteria [None Moderate /HPF Seen /HPF] *ABN* (05/03/18 11:06 AM) UA Sq Epi None Seen *NA* (05/03/18 11:06 AM) UA Mucus [None Seen Few /LPF /LPF] *NA* (05/03/18 11:06 AM) HEMATOLOGY Most recent to 1 oldest [Reference Range]: WBC [3.7-10.4 K/CMM] 5.3 K/CMM (05/03/18 11:08 AM) RBC [4.20-5.40 3.88 M/CMM M/CMM] *LOW* (05/03/18 11:08 AM) Hgb [12.0-16.0 g/dL] 11.6 g/dL *LOW* (05/03/18 11:08 AM) Hct [36.0-48.0 %] 35.2 % *LOW* (05/03/18 11:08 AM) MCV [80.0-98.0 fL] 90.8 fL (05/03/18 11:08 AM) MCH [27.0-31.0 pg] 30.0 pg (05/03/18 11:08 AM) MCHC [32.0-36.0 33.0 g/dL g/dL] (05/03/18 11:08 AM) RDW [11.5-14.5 %] 14.4 % (05/03/18 11:08 AM) MPV [7.4-10.4 fL] 9.7 fL (05/03/18 11:08 AM) Platelet [133-450 191 K/CMM K/CMM] (05/03/18 11:08 AM) Segs [45.0-75.0 %] 72.4 % (05/03/18 11:08 AM) Lymphocytes 15.6 % [20.0-40.0 %] *LOW* (05/03/18 11:08 AM) Monocytes [2.0-12.0 8.2 % %] (05/03/18 11:08 AM) Eosinophils [0.0-4.0 3.1 % %] (05/03/18 11:08 AM) Basophils [0.0-1.0 0.7 % %] (05/03/18 11:08 AM) Neutrophils # 3.8 K/CMM [1.5-8.1 K/CMM] (05/03/18 11:08 AM) Lymphocytes # 0.8 K/CMM [1.0-5.5 K/CMM] *LOW* (05/03/18 11:08 AM) Monocytes # [0.0-0.8 0.4 K/CMM K/CMM] (05/03/18 11:08 AM) Eosinophils # 0.2 K/CMM [0.0-0.5 K/CMM] (05/03/18 11:08 AM) Microbiology Reports TEST: Culture: Urine STATUS: Auth (Verified) BODY SITE: SOURCE: Urine, Clean Catch COLLECTED DATE/TIME: 05/03/18 11:57 AM FINAL REPORT >100,000 CFU/mL Escherichia coli ORGANISM:Escherichia coli Immunizations No data available for this section [...]
--- OUTSIDE RECORDS SUMMARY | 2018-11-04 20:35 | XMS REPORT | Summary of Care ---
Author Author [facility] Organization [facility] Address Unknown Phone Unavailable Encounter HQ Cristinar_noni(FIN) [id number] Date(s): 05/01/18 - 07/30/18 [facility] [address] [place] [id number]- [phone] Attending Physician: Doron Patricia DDS, MD Vital [...]
--- OUTSIDE RECORDS SUMMARY | 2018-11-04 20:35 | XMS REPORT | Summary of Care ---
Author [facility] Organization [facility] Address Unknown Phone Unavailable Encounter ELVIRA Kwon(JOSEPH) [id number] Date(s): 06/26/18 - 06/26/18 [facility] [place], [place] [address] [phone] Discharge Disposition: Home or Self Care Attending Physician: Rebeca Malhotra MD Referring Physician: Rebeca Malhotra MD Vital Signs Most recent to 1 oldest [Reference Range]: Height 160.02 cm (06/26/18 9:11 AM) Blood Pressure 129/71 mmHg [90-140/60-90 mmHg] (06/26/18 9:11 AM) Respiratory Rate 18 BRMIN [14-20 BRMIN] (06/26/18 9:11 AM) Peripheral Pulse 61 bpm Rate [60-100 bpm] (06/26/18 9:11 AM) Weight 68.182 kg (06/26/18 9:11 AM) Body Mass Index 26.63 m2 (06/26/18 9:11 AM) Problem List Condition Effective Dates Status [...]
--- OUTSIDE RECORDS SUMMARY | 2018-11-04 20:36 | XMS REPORT | Summary of Care ---
Author Author [facility] Organization [facility] Address Unknown Phone Unavailable Encounter ELVIRA Kwon(JOSEPH) [id number] Date(s): 05/08/18 - 08/06/18 [facility] [address] [place] [id number] [phone] Attending Physician: Doron Patricia DDS, MD Vital Signs No data available for this section Problem List Condition Effective Dates Status Health Status Informant Impaired Active mobility(Confirmed) Allergies, Adverse Reactions, Alerts Substance Reaction Severity Status sulfa drugs Active Medications No data available for this section Results ELECTROLYTES Most recent to 1 oldest [Reference Range]: Sodium Lvl [135-145 142 mEq/L mEq/L] (05/08/18 11:07 AM) Potassium Lvl 4.4 mEq/L [3.5-5.1 mEq/L] (05/08/18 11:07 AM) Chloride Lvl [95-109 106 mEq/L mEq/L] (05/08/18 11:07 AM) CO2 [24-32 mEq/L] 26 mEq/L (05/08/18 11:07 AM) AGAP [10.0-20.0 14.4 mEq/L mEq/L] (05/08/18 11:07 AM) CHEM PANEL Most recent to 1 oldest [Reference Range]: Creatinine Lvl 0.64 mg/dL [0.50-1.40 mg/dL] (05/08/18 11:07 AM) eGFR 79 mL/min/1.73m2 1 *NA* (05/08/18 11:07 AM) BUN [7-22 mg/dL] 13 mg/dL (05/08/18 11:07 AM) B/C Ratio [6-25] 20 (05/08/18 11:07 AM) Glucose Lvl [70-99 92 mg/dL mg/dL] (05/08/18 11:07 AM) Total Protein 6.4 g/dL [6.4-8.4 g/dL] (05/08/18 11:07 AM) Albumin Lvl [3.5-5.0 3.4 g/dL g/dL] *LOW* (05/08/18 11:07 AM) Globulin [2.7-4.2 3.0 g/dL g/dL] (05/08/18 11:07 AM) A/G Ratio [0.7-1.6] 1.1 (05/08/18 11:07 AM) Calcium Lvl 9.3 mg/dL [8.5-10.5 mg/dL] (05/08/18 11:07 AM) Magnesium Lvl 2.0 mg/dL [1.8-2.4 mg/dL] (05/08/18 11:07 AM) ALT [0-65 unit/L] <6 unit/L (05/08/18 11:07 AM) AST [0-37 unit/L] 13 unit/L (05/08/18 11:07 AM) GGT [5-85 unit/L] 20 unit/L (05/08/18 11:07 AM) Alk Phos [39-136 68 unit/L unit/L] (05/08/18 11:07 AM) Bili Total [0.2-1.3 0.4 mg/dL mg/dL] (05/08/18 11:07 AM) 1Result Comment: The eGFR is calculated [...] 1 oldest [Reference Range]: UA Turbidity [Clear] Slight *ABN* (05/08/18 11:14 AM) UA Color [Yellow] Light Yellow *NA* (05/08/18 11:14 AM) UA pH [5.0-8.0] 6.5 (05/08/18 11:14 AM) UA Spec Grav 1.005 [<=1.030] (05/08/18 11:14 AM) UA Glucose [Negative Negative mg/dL mg/dL] *NA* (05/08/18 11:14 AM) UA Blood [Negative] Negative (05/08/18 11:14 AM) UA Ketones [Negative Negative mg/dL mg/dL] *NA* (05/08/18 11:14 AM) UA Protein [Negative Negative mg/dL mg/dL] (05/08/18 11:14 AM) UA Urobilinogen <=1.0 mg/dL [0.1-1.0 mg/dL] *NA* (05/08/18 11:14 AM) UA Bili [Negative] Negative *NA* (05/08/18 11:14 AM) UA Leuk Est Large [Negative] *ABN* (05/08/18 11:14 AM) UA Nitrite Positive [Negative] *ABN* (05/08/18 11:14 AM) UA WBC [0-5 /HPF] >182 /HPF *HI* (05/08/18 11:14 AM) UA RBC [0-2 /HPF] 2 /HPF (05/08/18 11:14 AM) UA Bacteria [None Moderate /HPF Seen /HPF] *ABN* (05/08/18 11:14 AM) UA Sq Epi RARE *NA* (05/08/18 11:14 AM) Micro? Performed *NA* (05/08/18 11:14 AM) HEMATOLOGY Most recent to 1 oldest [Reference Range]: WBC [3.7-10.4 K/CMM] 5.4 K/CMM (05/08/18 11:07 AM) RBC [4.20-5.40 3.87 M/CMM M/CMM] *LOW* (05/08/18 11:07 AM) Hgb [12.0-16.0 g/dL] 11.5 g/dL *LOW* (05/08/18 11:07 AM) Hct [36.0-48.0 %] 35.4 % *LOW* (05/08/18 11:07 AM) MCV [80.0-98.0 fL] 91.3 fL (05/08/18 11:07 AM) MCH [27.0-31.0 pg] 29.7 pg (05/08/18:07 AM) MCHC [32.0-36.0 32.5 g/dL g/dL] (05/08/18 11:07 AM) RDW [11.5-14.5 %] 14.6 % *HI* (05/08/18 11:07 AM) MPV [7.4-10.4 fL] 9.5 fL (05/08/18 11:07 AM) Platelet [133-450 182 K/CMM K/CMM] (05/08/18 11:07 AM) Segs [45.0-75.0 %] 76.2 % *HI* (05/08/18 11:07 AM) Lymphocytes 13.3 % [20.0-40.0 %] *LOW* (05/08/18 11:07 AM) Monocytes [2.0-12.0 7.9 % %] (05/08/18 11:07 AM) Eosinophils [0.0-4.0 2.0 % %] (05/08/18 11:07 AM) Basophils [0.0-1.0 0.6 % %] (05/08/18 11:07 AM) Neutrophils # 4.1 K/CMM [1.5-8.1 K/CMM] (05/08/18 11:07 AM) Lymphocytes # 0.7 K/CMM [1.0-5.5 K/CMM] *LOW* (05/08/18 11:07 AM) Monocytes # [0.0-0.8 0.4 K/CMM K/CMM] (05/08/18 11:07 AM) Eosinophils # 0.1 K/CMM [0.0-0.5 K/CMM] (05/08/18 11:07 AM) Immunizations No data available for this [...]
--- OUTSIDE RECORDS SUMMARY | 2018-11-04 20:36 | XMS REPORT | Summary of Care ---
Author Author [facility] Organization [facility] Address Unknown Phone Unavailable Encounter HQ Jamientr_noni(FIN) [id number] Date(s): 05/10/18 - 08/08/18 [facility] [address] [place] [id number] [phone] Attending Physician: Doron Patricia DDS, MD Vital [...]
--- OUTSIDE RECORDS SUMMARY | 2018-11-04 20:36 | XMS REPORT | Summary of Care ---
Author Author [facility] Organization [facility] Address Unknown Phone Unavailable Encounter ELVIRA Kwon(JOSEPH) [id number] Date(s): 04/13/18 - 07/12/18 [facility] [address] [place], [place] [address] Attending Physician: Doron Patricia DDS, MD Vital Signs No data available for this section Problem List Condition Effective Dates Status Health Status Informant Impaired Active mobility(Confirmed) Allergies, Adverse Reactions, Alerts Substance Reaction Severity Status sulfa drugs Active Medications No data available for this section Results ELECTROLYTES Most recent to 1 oldest [Reference Range]: Sodium Lvl [135-145 143 mEq/L mEq/L] (04/13/18 12:20 PM) Potassium Lvl 4.0 mEq/L [3.5-5.1 mEq/L] (04/13/18 12:20 PM) Chloride Lvl [95-109 106 mEq/L mEq/L] (04/13/18 12:20 PM) CO2 [24-32 mEq/L] 28 mEq/L (04/13/18 12:20 PM) AGAP [10.0-20.0 13.0 mEq/L mEq/L] (04/13/18 12:20 PM) CHEM PANEL Most recent to 1 oldest [Reference Range]: Creatinine Lvl 0.65 mg/dL [0.50-1.40 mg/dL] (04/13/18 12:20 PM) eGFR 79 mL/min/1.73m2 1 *NA* (04/13/18 12:20 PM) BUN [7-22 mg/dL] 15 mg/dL (04/13/18 12:20 PM) B/C Ratio [6-25] 23 (04/13/18 12:20 PM) Glucose Lvl [70-99 91 mg/dL mg/dL] (04/13/18 12:20 PM) Total Protein 6.5 g/dL [6.4-8.4 g/dL] (04/13/18 12:20 PM) Albumin Lvl [3.5-5.0 3.5 g/dL g/dL] (04/13/18 12:20 PM) Globulin [2.7-4.2 3.0 g/dL g/dL] (04/13/18 12:20 PM) A/G Ratio [0.7-1.6] 1.2 (04/13/18 12:20 PM) Calcium Lvl 8.9 mg/dL [8.5-10.5 mg/dL] (04/13/18 12:20 PM) Magnesium Lvl 2.0 mg/dL [1.8-2.4 mg/dL] (04/13/18 12:20 PM) ALT [0-65 unit/L] 12 unit/L (04/13/18 12:20 PM) AST [0-37 unit/L] 14 unit/L (04/13/18 12:20 PM) GGT [5-85 unit/L] 29 unit/L (04/13/18 12:20 PM) Alk Phos [39-136 71 unit/L unit/L] (04/13/18 12:20 PM) Bili Total [0.2-1.3 0.5 mg/dL mg/dL] (04/13/18 12:20 PM) 1Result Comment: The eGFR is calculated [...] be mul tiplied by the estimated BMI. ENDOCRINOLOGY Most recent to 1 oldest [Reference Range]: hCG Tot 2 mIU/mL *NA* (04/13/18 12:20 PM) URINE CHEM Most recent to 1 oldest [Reference Range]: U Preg [Negative] Negative (04/13/18 12:18 PM) URINE AND STOOL Most recent to 1 oldest [Reference Range]: UA Turbidity [Clear] Clear (04/13/18 12:18 PM) UA Color [Yellow] Yellow *NA* (04/13/18 12:18 PM) UA pH [5.0-8.0] 6.5 (04/13/18 12:18 PM) UA Spec Grav 1.011 [<=1.030] (04/13/18 12:18 PM) UA Glucose [Negative Negative mg/dL mg/dL] *NA* (04/13/18 12:18 PM) UA Blood [Negative] Negative (04/13/18 12:18 PM) UA Ketones [Negative Negative mg/dL mg/dL] *NA* (04/13/18 12:18 PM) UA Protein [Negative Negative mg/dL mg/dL] (04/13/18 12:18 PM) UA Urobilinogen <=1.0 mg/dL [0.1-1.0 mg/dL] *NA* (04/13/18 12:18 PM) UA Bili [Negative] Negative *NA* (04/13/18 12:18 PM) UA Leuk Est Moderate [Negative] *ABN* (04/13/18 12:18 PM) UA Nitrite Negative [Negative] (04/13/18 12:18 PM) UA WBC [0-5 /HPF] 19 /HPF *HI* (04/13/18 12:18 PM) UA RBC [0-2 /HPF] 2 /HPF (04/13/18 12:18 PM) UA Sq Epi 14 /LPF *NA* (04/13/18 12:18 PM) UA Mucus [None Seen Few /LPF /LPF] *NA* (04/13/18 12:18 PM) Micro? Performed *NA* (04/13/18 12:18 PM) HEMATOLOGY Most recent to 1 oldest [Reference Range]: WBC [3.7-10.4 K/CMM] 6.1 K/CMM (04/13/18 12:20 PM) RBC [4.20-5.40 3.98 M/CMM M/CMM] *LOW* (04/13/18 12:20 PM) Hgb [12.0-16.0 g/dL] 11.9 g/dL *LOW* (04/13/18 12:20 PM) Hct [36.0-48.0 %] 36.5 % (04/13/18 12:20 PM) MCV [80.0-98.0 fL] 91.7 fL (04/13/18 12:20 PM) MCH [27.0-31.0 pg] 29.9 pg (04/13/18 12:20 PM) MCHC [32.0-36.0 32.6 g/dL g/dL] (04/13/18 12:20 PM) RDW [11.5-14.5 %] 14.6 % *HI* (04/13/18 12:20 PM) MPV [7.4-10.4 fL] 9.2 fL (04/13/18 12:20 PM) Platelet [133-450 221 K/CMM K/CMM] (04/13/18 12:20 PM) Segs [45.0-75.0 %] 71.9 % (04/13/18 12:20 PM) Lymphocytes 15.3 % [20.0-40.0 %] *LOW* (04/13/18 12:20 PM) Monocytes [2.0-12.0 8.2 % %] (04/13/18 12:20 PM) Eosinophils [0.0-4.0 3.8 % %] (04/13/18 12:20 PM) Basophils [0.0-1.0 0.8 % %] (04/13/18 12:20 PM) Neutrophils # 4.4 K/CMM [1.5-8.1 K/CMM] (04/13/18 12:20 PM) Lymphocytes # 0.9 K/CMM [1.0-5.5 K/CMM] *LOW* (04/13/18 12:20 PM) Monocytes # [0.0-0.8 0.5 K/CMM K/CMM] (04/13/18 12:20 PM) Eosinophils # 0.2 K/CMM [0.0-0.5 K/CMM] (04/13/18 12:20 PM) Immunizations No data available for this section [...]
--- OUTSIDE RECORDS SUMMARY | 2018-11-04 20:37 | XMS REPORT | Summary of Care ---
Author Author [facility] Organization [facility] Address Unknown Phone Unavailable Encounter HQ Cher(JOSEPH) [id number] Date(s): 05/23/18 - 06/03/18 [facility] [address] [employer] provided by [facility] [place] [address]- Discharge Disposition: Home or Self Care Attending Physician: Jose Eduardo Diez DDS, MD Admitting Physician: Jose Eduardo Diez DDS, MD Referring Physician: Jose Eduardo Diez DDS, MD Vital Signs 1 2 3 Most recent to oldest [Reference Range]: 160.02 cm (05/24/18 8:30 AM) 160.02 cm (05/24/18 2:37 AM) 160.02 cm (05/23/18 11:09 PM) Height 98.8 DegF (06/01/18 4:15 PM) 99.2 DegF *HI* (06/01/18 7:45 AM) 98.9 DegF (05/31/18 4:15 PM) Temperature Oral [96.4-99.1 DegF] 171/69 mmHg *HI* (06/03/18 11:15 AM) 160/72 mmHg *HI* (06/03/18 8:00 AM) 157/72 mmHg *HI* (06/03/18 3:03 AM) Blood Pressure [90-140/60-90 mmHg] 22 BRMIN *HI* (06/03/18 11:15 AM) 20 BRMIN (06/03/18 8:00 AM) 18 BRMIN (06/03/18 3:03 AM) Respiratory Rate [14-20 BRMIN] 71 bpm (06/03/18 11:15 AM) 67 bpm (06/03/18 8:00 AM) 71 bpm (06/03/18 3:03 AM) Peripheral Pulse Rate [60-100 bpm] 80.364 kg (05/23/18 11:09 PM) 71.364 kg (05/23/18 6:08 AM) 72.273 kg (05/17/18 2:51 PM) Weight 31.38 m2 (05/23/18 11:09 PM) 27.87 m2 (05/23/18 6:08 AM) 28.22 m2 (05/17/18 2:51 PM) Body Mass Index Problem List No Known Problems Allergies, Adverse Reactions, Alerts Substance Reaction Severity Status sulfa drugs Active Medications acetaminophen 1,000 mg, 31.23 mL, Route: NG, Drug form: LIQ, Q6Hnow, Dosing Weight 80.364, kg, Start date: 05/24/18 9:00:00 SLP, Duration: 2 day, Stop date: 05/26/18 3:00:00 SLP Notes: Max vtmwexnyrfcjc=7454qg/day (4 gm/day). (Same as: Tylenol) Start Date: 05/24/18 Stop Date: 05/24/18 Status: Discontinued acetaminophen 1,000 mg, 31.23 mL, Route: NG, Drug form: LIQ, Q6H, Dosing Weight 80.364, kg, St art date: 05/24/18 6:00:00 SLP, Duration: 2 day, Stop date: 05/26/18 0:00:00 SLP Notes: Max thtudkaeghofe=8599iu/day (4 gm/day). (Same as: Tylenol) Start Date: 05/24/18 Stop Date: 05/24/18 Status: Discontinued acetaminophen (ANES) 10 mg Route: IV, Drug form: INJ, Start date: 05/23/18 9:36:00 SLP, Stop date: 05/23/18 10:36:00 SLP Start Date: 05/23/18 Stop Date: 05/23/18 Status: Completed acetaminophen 160 mg/5 mL oral suspension 640 mg=20 mL, PO, Q6H, PRN Pain Score 1-3, # 480 mL, 0 Refill(s) Start Date: 06/02/18 Stop Date: 06/09/18 Status: Ordered Albumin 5% intravenous solution (HC) 25 gm, 500 mL, Route: IV, Drug form: INJ, ONCE, Dosing Weight 80.364, kg, Start date: 05/24/18 8:02:00 SLP, Stop date: 05/24/18 8:02:00 SLP Notes: LOT#: Mfg: (Same as: Albuminar)"blood product derivative"WASTE: F/P - Red; E -Red MEDICATION WASTE Product Size: 25 gmProduct Wasted: _0__ gm Start Date: 05/24/18 Stop Date: 05/24/18 Status: Completed Albumin 25% intravenous solution (HC) 25 gm, 100 mL, Route: IV, Drug form: INJ, Q4Hnow, Dosing Weight 80.364, kg, Star t date: 05/24/18 13:00:00 SLP, Duration: 6 doses or times, Stop date: 05/25/18 1 0:00:00 SLP Notes: Lot #: Mfg: (Same as: Plasbumin-25)"blood pr oduct derivative"WASTE: F/P - Red; E -Red MEDICATION WASTE Product Size: 25 gmProduct Wasted: _0__ gm Start Date: 05/24/18 Stop Date: 05/25/18 Status: Discontinued albuterol 0.083% inhalation solution 2.49 mg, 3 mL, Route: NEB, Drug form: SOLN, PRN, Dosing Weight 71.364, kg, PRN R espiratory Pathway, Start date: 05/23/18 16:42:00 SLP, Duration: 30 day, Stop da te: 06/22/18 16:41:00 SLP Notes: SEE RT DOCUMENTATION (Same as: Stefan) Start Date: 05/23/18 Stop Date: 06/03/18 Status: Discontinued amLODIPine 2.5 mg, 1 tab, Route: PO, Drug form: TAB, Daily, Dosing Weight 80.364, kg, Start date: 05/31/18 14:54:00 SLP, Duration: 30 day, Stop date: 06/30/18 9:00:00 SLP Notes: (Same as: Norvasc) Start Date: 05/31/18 Stop Date: 06/01/18 Status: Discontinued aspirin 325 mg, 1 tab, Route: RI, Drug form: TAB, ONCE, Dosing Weight 71.364, kg, Start date: 05/23/18 16:26:00 SLP, Stop date: 05/23/18 16:26:00 SLP Notes: Take with food. Start Date: 05/23/18 Stop Date: 05/24/18 Status: Discontinued aspirin 300 mg rectal suppository 300 mg, 1 supp, Route: RI, Drug form: SUPP, ONCE, Dosing Weight 71.364, kg, Prio rity: NOW, Start date: 05/23/18 22:52:00 SLP, Stop date: 05/23/18 22:52:00 SLP Notes: Refrigerate. Start Date: 05/23/18 Stop Date: 05/23/18 Status: Completed aspirin 81 mg tablet, chewable 324 mg, 4 tab, Route: PO, Drug form: CHEWTAB, Daily, Dosing Weight 71.364, kg, S tart date: 05/24/18 9:00:00 SLP, Duration: 30 day, Stop date: 06/22/18 9:00:[address] Notes: Take with food. Start Date: 05/24/18 Stop Date: 06/03/18 Status: Discontinued Augmentin 250 mg/5 mL oral liquid 10 mL, PO, Q8H, # 90 mL, 0 Refill(s) Start Date: 06/02/18 Stop Date: 06/05/18 Status: Completed bacitracin topical 1 appl, Route: TOP, Q8H, Drug form: OINT, Start date: 05/24/18 8:00:00 SLP, Dura tion: 30 day, Stop date: 06/23/18 0:00:00 SLP Start Date: 05/24/18 Stop Date: 06/03/18 Status: Discontinued Beneprotein 7 gm pkt 2 pkt, Route: T FEED, Drug Form: PWDR, Dosing Weight 80.364, kg, BID, Start date : 05/29/18 17:00:00 SLP, Duration: 30 day, Stop date: 06/28/18 9:00:00 SLP Notes: (Same as: Beneprotein) Start Date: 05/29/18 Stop Date: 06/03/18 Status: Discontinued calcium carbonate 500 mg (200 mg elemental calcium) oral tablet 500 mg, 1 tab, Route: PO, Drug form: CHEWTAB, PRN, Dosing Weight 80.364, kg, PRN Abnormal Lab Result, FOR ICU USE ONLY, Start date: 05/24/18 0:10:00 SLP, Durati on: 30 day, Stop date: 06/23/18 0:09:00 SLP Notes: (Same As: Nilsons)Calcium Carbonate 500 bg=369 mg elemental calcium Dose=_ mg calcium carbonate ( mg elemental calcium) Start Date: 05/24/18 Stop Date: 05/28/18 Status: Discontinued calcium carbonate 500 mg (200 mg elemental calcium) oral tablet 1,000 mg, 2 tab, Route: PO, Drug form: CHEWTAB, PRN, Dosing Weight 80.364, kg, P RN Abnormal Lab Result, FOR ICU USE ONLY, Start date: 05/24/18 0:10:00 SLP, Dura tion: 30 day, Stop date: 06/23/18 0:09:00 SLP Notes: (Same As: Yelena)Calcium Carbonate 500 cp=343 mg elemental calcium Dose=_ mg calcium carbonate ( mg elemental calcium) Start Date: 05/24/18 Stop Date: 05/28/18 Status: Discontinued calcium gluconate + Sodium Chloride 0.9% IV 100 mL 2,000 mg, 20 mL, Route: IVPB, ONCE, Dosing Weight 80.364, kg, Start date: 8:15:00 SLP, Stop date: 05/24/18 8:15:00 SLP Notes: WASTE: F/P - Sink; E - Municipal Trash Bin Start Date: 05/24/18 Stop Date: 05/24/18 Status: Completed calcium gluconate + Sodium Chloride 0.9% IV 50 mL 1 gm, 10 mL, Route: IVPB, PRN, Dosing Weight 80.364, kg, PRN Abnormal Lab Result , Start date: 05/24/18 0:10:00 SLP, Duration: 30 day, Stop date: 06/23/18 0:09:0 0 SLP, FOR ICU USE ONLY Notes: WASTE: F/P - Sink; E - Municipal Trash Bin Start Date: 05/24/18 Stop Date: 05/28/18 Status: Discontinued ceFAZolin (ANES) Route: IV, Drug form: INJ, ONCE, Stop date: 05/23/18 18:00:00 SLP Start Date: 05/23/18 Stop Date: 05/23/18 Status: Completed ceFAZolin (ANES) Route: IV, Drug form: INJ, ONCE, Stop date: 05/23/18 9:04:00 SLP Start Date: 05/23/18 Stop Date: 05/23/18 Status: Completed cefepime 1 gm, Route: IVP, Drug form: INJ, ABXQ6H, Dosing Weight 80.364, kg, (CrCl >/=50 ml/min), Start date: 05/24/18 8:00:00 SLP, Duration: 7 day, Stop date: 05/31/18 2:00:00 SLP, ABX Indication: Skin/Soft Tissue Infection Notes: (Same As: Maxipime) MEDICATION WASTE Product Size: 1000 mgProduc t Wasted: _0__ mg Start Date: 05/24/18 Stop Date: 05/24/18 Status: Discontinued cefepime 1 gm, Route: IVP, Drug form: INJ, ABXQ8H, Dosing Weight 80.364, kg, (CrCl >/=50 ml/min), Start date: 05/24/18 22:00:00 SLP, Duration: 7 day, Stop date: 05/31/18 14:00:00 SLP, ABX Indication: Skin/Soft Tissue Infection Notes: (Same As: Maxipime) MEDICATION WASTE Product Size: 1000 mgProduc t Wasted: ___ mg Start Date: 05/24/18 Stop Date: 05/26/18 Status: Discontinued chlorhexidine topical 0.12% liquid 15 mL, Route: Swab Mouth, PRN, Drug form: LIQ, PRN Other -See Comment, Start floresita e: 05/23/18 23:01:00 SLP, Duration: 30 day, Stop date: 06/22/18 23:00:00 SLP Notes: (Same As: Peridex) Start Date: 05/23/18 Stop Date: 05/24/18 Status: Discontinued chlorhexidine topical 0.12% liquid 15 mL, Route: Swab Mouth, Q12H, Drug form: LIQ, Start date: 05/24/18 9:00:00 SLP , Duration: 30 day, Stop date: 06/22/18 21:00:00 SLP Notes: (Same As: Peridex) Start Date: 05/24/18 Stop Date: 05/24/18 Status: Discontinued D5W 1,000 mL 1,000 mL, Rate: 75 ml/hr, Infuse over: 13.3 hr, Route: IV, Dosing Weight 80.364 kg, Total Volume: 1,000, Start date: 05/31/18 8:11:00 SLP, Duration: 30 day, Sto p date: 06/30/18 8:10:00 SLP, 1.92, m2 Start Date: 05/31/18 Stop Date: 05/31/18 Status: Discontinued Dextrose 50% Syringe 12.5 gm, 25 mL, Route: IVP, Drug Form: INJ, Dosing Weight 80.364, kg, PRN, PRN B lood Glucose Results, Start date: 05/31/18 8:16:00 SLP, Duration: 30 day, Stop d ate: 06/30/18 8:15:00 SLP Start Date: 05/31/18 Stop Date: 06/01/18 Status: Discontinued Dextrose 50% Syringe 25 gm, 50 mL, Route: IVP, Drug Form: INJ, Dosing Weight 80.364, kg, PRN, PRN Blo od Glucose Results, Start date: 05/31/18 8:16:00 SLP, Duration: 30 day, Stop floresita e: 06/30/18 8:15:00 SLP Start Date: 05/31/18 Stop Date: 06/01/18 Status: Discontinued Dextrose 50% Syringe 25 gm, 50 mL, Route: IVP, Drug Form: INJ, Dosing Weight 71.364, kg, PRN, PRN Blo od Glucose Results, Start date: 05/23/18 17:01:00 SLP, Duration: 30 day, Stop da te: 06/22/18 17:00:00 SLP Start Date: 05/23/18 Stop Date: 05/27/18 Status: Discontinued Dextrose 50% Syringe 12.5 gm, 25 mL, Route: IVP, Drug Form: INJ, Dosing Weight 71.364, kg, PRN, PRN B lood Glucose Results, Start date: 05/23/18 17:01:00 SLP, Duration: 30 day, Stop date: 06/22/18 17:00:00 SLP Start Date: 05/23/18 Stop Date: 05/27/18 Status: Discontinued Dextrose 50% Syringe 12.5 gm, 25 mL, Route: IVP, Drug Form: INJ, Dosing Weight 80.364, kg, PRN, PRN B lood Glucose Results, Start date: 05/23/18 23:16:00 SLP, Duration: 30 day, Stop date: 06/22/18 23:15:00 SLP Start Date: 05/23/18 Stop Date: 05/23/18 Status: Discontinued Dextrose 50% Syringe 25 gm, 50 mL, Route: IVP, Drug Form: INJ, Dosing Weight 80.364, kg, PRN, PRN Blo od Glucose Results, Start date: 05/23/18 23:16:00 SLP, Duration: 30 day, Stop da te: 06/22/18 23:15:00 SLP Start Date: 05/23/18 Stop Date: 05/23/18 Status: Discontinued docusate 100 mg, 10 mL, Route: NG, Drug form: LIQ, Q12H, Dosing Weight 71.364, kg, Start date: 05/24/18 9:00:00 SLP, Duration: 30 day, Stop date: 06/22/18 21:00:00 SLP Notes: (Same as: Hailey) Start Date: 05/24/18 Stop Date: 05/28/18 Status: Discontinued ePHEDrine (ANES) Route: IV, Drug form: INJ, ONCE, Stop date: 05/23/18 9:59:00 SLP Start Date: 05/23/18 Stop Date: 05/23/18 Status: Completed EPINEPHrine (ANES) Route: IV, Drug form: INJ, ONCE, Stop date: 05/23/18 8:44:00 SLP Start Date: 05/23/18 Stop Date: 05/23/18 Status: Completed fentaNYL (ANES) Route: IV, Drug form: INJ, ONCE, Stop date: 05/23/18 18:55:00 SLP Start Date: 05/23/18 Stop Date: 05/23/18 Status: Completed fentaNYL (ANES) Route: IV, Drug form: INJ, ONCE, Stop date: 05/23/18 8:54:00 SLP Start Date: 05/23/18 Stop Date: 05/23/18 Status: Completed Flagyl 500 mg, 100 mL, Route: IVPB, Drug form: INJ, ABXQ8H, Dosing Weight 80.364, kg, P riority: STAT, Start date: 05/24/18 8:03:00 SLP, Duration: 7 day, Stop date: 10/11 0:03:00 SLP, ABX Indication: Skin/Soft Tissue Infection Start Date: 05/24/18 Stop Date: 05/26/18 Status: Discontinued furosemide 20 mg, 2 mL, Route: IVP, Drug form: INJ, ONCE, Dosing Weight 80.364, kg, Start d ate: 05/26/18 13:11:00 SLP, Stop date: 05/26/18 13:11:00 SLP Notes: (Same as: Lasix) Start Date: 05/26/18 Stop Date: 05/26/18 Status: Completed glucagon 1 mg, Route: IM, Drug form: PDR/INJ, PRN, Dosing Weight 80.364, kg, PRN Blood Gl ucose Results, Start date: 05/31/18 8:16:00 SLP, Duration: 30 day, Stop date: 8:15:00 SLP Start Date: 05/31/18 Stop Date: 06/01/18 Status: Discontinued glucagon 1 mg, Route: IM, Drug form: PDR/INJ, PRN, Dosing Weight 71.364, kg, PRN Blood Gl ucose Results, Start date: 05/23/18 17:01:00 SLP, Duration: 30 day, Stop date: 0 06/22/18 17:00:00 SLP Start Date: 05/23/18 Stop Date: 05/27/18 Status: Discontinued glucagon 1 mg, Route: IM, Drug form: PDR/INJ, PRN, Dosing Weight 80.364, kg, PRN Blood Gl ucose Results, Start date: 05/23/18 23:16:00 SLP, Duration: 30 day, Stop date: 0 06/22/18 23:15:00 SLP Start Date: 05/23/18 Stop Date: 05/23/18 Status: Discontinued glycerin adult rectal suppository 1 supp, Route: RI, Drug Form: SUPP, Dosing Weight 80.364, kg, ONCE, NOW, Start d ate: 05/25/18 10:36:00 SLP, Stop date: 05/25/18 10:36:00 SLP Start Date: 05/25/18 Stop Date: 05/25/18 Status: Completed guar gum oral powder (NutriSource) 4 gm, 1 pkt, Route: PO, Drug Form: PCKT, Dosing Weight 80.364, kg, TID, Start da te: 05/30/18 17:00:00 SLP, Duration: 30 day, Stop date: 06/29/18 13:00:00 SLP Notes: (Same as: Nutrisource Fiber) Dissolve packet in at least 4 oz (120 mL) of water and stir until completely dissolved before administering down the feeding tube. Start Date: 05/30/18 Stop Date: 06/03/18 Status: Discontinued heparin 5000 units/mL injectable solution 5,000 unit, 1 mL, Route: SUB-Q, Drug form: INJ, Q8H, Dosing Weight 71.364, kg, S tart date: 05/24/18 6:00:00 SLP, Duration: 30 day, Stop date: 06/23/18 0:00:[address] Notes: porcine heparin Start Date: 05/24/18 Stop Date: 06/03/18 Status: Discontinued hydrALAZINE 20 mg, 1 mL, Route: IV, Drug form: INJ, Q6H, Dosing Weight 71.364, kg, PRN Other -See Comment, Start date: 05/23/18 16:26:00 SLP, Duration: 30 day, Stop date: 0 06/22/18 16:25:00 SLP Notes: (Same as: Apresoline)Push over 5 minutes Start Date: 05/23/18 Stop Date: 06/03/18 Status: Discontinued insulin lispro 5 unit, 0.05 mL, Route: SUB-Q, Drug form: SOLN, Sliding Scale, Dosing Weight 80. 364, kg, PRN Blood Glucose Results, Start date: 05/31/18 8:16:00 SLP, Duration: 30 day, Stop date: 06/30/18 8:15:00 SLP Notes: (Same as: Humalog ) Roll in palms of hands gently; Do not shake `vigorou sly. "Single Patient Use Only " WASTE: F/P - Black; E - Municipal Trash Bin St able for 28 days at room temperature.Expires in days from Da te Start Date: 05/31/18 Stop Date: 06/01/18 Status: Discontinued insulin lispro 4 unit, 0.04 mL, Route: SUB-Q, Drug form: SOLN, Sliding Scale, Dosing Weight 80. 364, kg, PRN Blood Glucose Results, Start date: 05/31/18 8:16:00 SLP, Duration: 30 day, Stop date: 06/30/18 8:15:00 SLP Notes: (Same as: Humalog ) Roll in palms of hands gently; Do not shake `vigorou sly. "Single Patient Use Only " WASTE: F/P - Black; E - Municipal Trash [address] St able for 28 days at room temperature.Expires in days from Da te Start Date: 05/31/18 Stop Date: 06/01/18 Status: Discontinued insulin lispro 2 unit, 0.02 mL, Route: SUB-Q, Drug form: SOLN, Sliding Scale, Dosing Weight 80. 364, kg, PRN Blood Glucose Results, Start date: 05/31/18 8:16:00 SLP, Duration: 30 day, Stop date: 06/30/18 8:15:00 SLP Notes: (Same as: Humalog ) Roll in palms of hands gently; Do not shake `vigorou sly. "Single Patient Use Only " WASTE: F/P - Black; E - Municipal Trash [address] St able for 28 days at room temperature.Expires in days from Da te Start Date: 05/31/18 Stop Date: 06/01/18 Status: Discontinued insulin lispro 3 unit, 0.03 mL, Route: SUB-Q, Drug form: SOLN, Sliding Scale, Dosing Weight 80. 364, kg, PRN Blood Glucose Results, Start date: 05/31/18 8:16:00 SLP, Duration: 30 day, Stop date: 06/30/18 8:15:00 SLP Notes: (Same as: Humalog ) Roll in palms of hands gently; Do not shake `vigorou sly. "Single Patient Use Only " WASTE: F/P - Black; E - Municipal Trash [address] St able for 28 days at room temperature.Expires in days from Da te Start Date: 05/31/18 Stop Date: 06/01/18 Status: Discontinued insulin lispro 1 unit, 0.01 mL, Route: SUB-Q, Drug form: SOLN, Sliding Scale, Dosing Weight 80. 364, kg, PRN Blood Glucose Results, Start date: 05/31/18 8:16:00 SLP, Duration: 30 day, Stop date: 06/30/18 8:15:00 SLP Notes: (Same as: Humalog ) Roll in palms of hands gently; Do not shake `vigorou sly. "Single Patient Use Only " WASTE: F/P - Black; E - [facility] Trash [address] St able for 28 days at room temperature.Expires in days from Da te Start Date: 05/31/18 Stop Date: 06/01/18 Status: Discontinued insulin lispro 3 unit, 0.03 mL, Route: SUB-Q, Drug form: SOLN, Sliding Scale, Dosing Weight 71. 364, kg, PRN Blood Glucose Results, Start date: 05/23/18 17:01:00 SLP, Duration: 30 day, Stop date: 06/22/18 17:00:00 SLP Notes: (Same as: Humalog ) Roll in palms of hands gently; Do not shake `vigorou sly. "Single Patient Use Only " WASTE: F/P - Black; E - [facility] Tr[address] St able for 28 days at room temperature.Expires in days from Da te Start Date: 05/23/18 Stop Date: 05/27/18 Status: Discontinued insulin lispro 5 unit, 0.05 mL, Route: SUB-Q, Drug form: SOLN, Sliding Scale, Dosing Weight 71. 364, kg, PRN Blood Glucose Results, Start date: 05/23/18 17:01:00 SLP, Duration: 30 day, Stop date: 06/22/18 17:00:00 SLP Notes: (Same as: Humalog ) Roll in palms of hands gently; Do not shake `vigorou sly. "Single Patient Use Only " WASTE: F/P - Black; E - [facility] [address] St able for 28 days at room temperature.Expires in days from Da te Start Date: 05/23/18 Stop Date: 05/27/18 Status: Discontinued insulin lispro 4 unit, 0.04 mL, Route: SUB-Q, Drug form: SOLN, Sliding Scale, Dosing Weight 71. 364, kg, PRN Blood Glucose Results, Start date: 05/23/18 17:01:00 SLP, Duration: 30 day, Stop date: 06/22/18 17:00:00 SLP Notes: (Same as: Humalog ) Roll in palms of hands gently; Do not shake `vigorou sly. "Single Patient Use Only " WASTE: F/P - Black; E - [facility] Tr[address] St able for 28 days at room temperature.Expires in days from Da te Start Date: 05/23/18 Stop Date: 05/27/18 Status: Discontinued insulin lispro 2 unit, 0.02 mL, Route: SUB-Q, Drug form: SOLN, Sliding Scale, Dosing Weight 71. 364, kg, PRN Blood Glucose Results, Start date: 05/23/18 17:01:00 SLP, Duration: 30 day, Stop date: 06/22/18 17:00:00 SLP Notes: (Same as: Humalog ) Roll in palms of hands gently; Do not shake `vigorou sly. "Single Patient Use Only " WASTE: F/P - Black; E - [facility] [address] St able for 28 days at room temperature.Expires in days from Da te Start Date: 05/23/18 Stop Date: 05/27/18 Status: Discontinued insulin lispro 1 unit, 0.01 mL, Route: SUB-Q, Drug form: SOLN, Sliding Scale, Dosing Weight 71. 364, kg, PRN Blood Glucose Results, Start date: 05/23/18 17:01:00 SLP, Duration: 30 day, Stop date: 06/22/18 17:00:00 SLP Notes: (Same as: Humalog ) Roll in palms of hands gently; Do not shake `vigorou sly. "Single Patient Use Only " WASTE: F/P - Black; E - [facility] [address] St able for 28 days at room temperature.Expires in days from Da te Start Date: 05/23/18 Stop Date: 05/27/18 Status: Discontinued insulin lispro 2 unit, 0.02 mL, Route: SUB-Q, Drug form: SOLN, Sliding Scale, Dosing Weight 80. 364, kg, PRN Blood Glucose Results, Start date: 05/23/18 23:16:00 SLP, Duration: 30 day, Stop date: 06/22/18 23:15:00 SLP Notes: (Same as: Humalog ) Roll in palms of hands gently; Do not shake `vigorou sly. "Single Patient Use Only " WASTE: F/P - Black; E - [facility] [address] St able for 28 days at room temperature.Expires in days from Da te Start Date: 05/23/18 Stop Date: 05/23/18 Status: Discontinued insulin lispro 1 unit, 0.01 mL, Route: SUB-Q, Drug form: SOLN, Sliding Scale, Dosing Weight 80. 364, kg, PRN Blood Glucose Results, Start date: 05/23/18 23:16:00 SLP, Duration: 30 day, Stop date: 06/22/18 23:15:00 SLP Notes: (Same as: Humalog ) Roll in palms of hands gently; Do not shake `vigorou sly. "Single Patient Use Only " WASTE: F/P - Black; E - [facility] [address] St able for 28 days at room temperature.Expires in days from Da te Start Date: 05/23/18 Stop Date: 05/23/18 Status: Discontinued insulin lispro 4 unit, 0.04 mL, Route: SUB-Q, Drug form: SOLN, Sliding Scale, Dosing Weight 80. 364, kg, PRN Blood Glucose Results, Start date: 05/23/18 23:16:00 SLP, Duration: 30 day, Stop date: 06/22/18 23:15:00 SLP Notes: (Same as: Humalog ) Roll in palms of hands gently; Do not shake `vigorou sly. "Single Patient Use Only " WASTE: F/P - Black; E - [facility] [address] St able for 28 days at room temperature.Expires in days from Da te Start Date: 05/23/18 Stop Date: 05/23/18 Status: Discontinued insulin lispro 3 unit, 0.03 mL, Route: SUB-Q, Drug form: SOLN, Sliding Scale, Dosing Weight 80. 364, kg, PRN Blood Glucose Results, Start date: 05/23/18 23:16:00 SLP, Duration: 30 day, Stop date: 06/22/18 23:15:00 SLP Notes: (Same as: Humalog ) Roll in palms of hands gently; Do not shake `vigorou sly. "Single Patient Use Only " WASTE: F/P - Black; E - [facility] [address] St able for 28 days at room temperature.Expires in days from Da te Start Date: 05/23/18 Stop Date: 05/23/18 Status: Discontinued insulin lispro 5 unit, 0.05 mL, Route: SUB-Q, Drug form: SOLN, Sliding Scale, Dosing Weight 80. 364, kg, PRN Blood Glucose Results, Start date: 05/23/18 23:16:00 SLP, Duration: 30 day, Stop date: 06/22/18 23:15:00 SLP Notes: (Same as: Humalog ) Roll in palms of hands gently; Do not shake `vigorou sly. "Single Patient Use Only " WASTE: F/P - Black; E - [facility] [address] St able for 28 days at room temperature.Expires in days from Da te Start Date: 05/23/18 Stop Date: 05/23/18 Status: Discontinued Isolyte S PH 7.4 (ANES) 1000 mL Route: IV, Total Volume: 1,000, Start date: 05/23/18 8:00:00 SLP, Stop date: 9:00:00 SLP Start Date: 05/23/18 Stop Date: 05/23/18 Status: Completed Isolyte S PH-7.4 (Bolus) IV 500 mL, 0 ml/hr, Infuse Over: 0 hr, Route: IV, 500, Drug form: SOLN, ONCE, Dosin g Weight 80.364 kg, Start date: 05/24/18 13:10:00 SLP, Stop date: 05/24/18 13:10 :00 SLP Notes: (Same as: Isolyte S PH7.4) Start Date: 05/24/18 Stop Date: 05/24/18 Status: Discontinued labetalol 20 mg, 4 mL, Route: IV, Drug form: INJ, Q6H, Dosing Weight 71.364, kg, PRN Other -See Comment, Start date: 05/23/18 16:26:00 SLP, Duration: 30 day, Stop date: 0 06/22/18 16:25:00 SLP Notes: (Same as: Normodyne, Trandate)Push over 2 minutes Give bolus over 2-3 mi nutes. Start Date: 05/23/18 Stop Date: 05/31/18 Status: Discontinued Lactated Ringers (Bolus) IV 500 mL, 500 ml/hr, Infuse Over: 1 hr, Route: IV, ONCE, Priority: STAT, Dosing We ight 80.364 kg, Start date: 05/24/18 4:43:00 SLP, Stop date: 05/24/18 4:43:00 CS T Start Date: 05/24/18 Stop Date: 05/24/18 Status: Completed Lactated Ringers (Bolus) IV 500 mL, 500 ml/hr, Infuse Over: 1 hr, Route: IV, 500, Drug form: INJ, ONCE, Prio rity: STAT, Dosing Weight 80.364 kg, Start date: 05/24/18 13:17:00 SLP, Stop floresita e: 05/24/18 13:17:00 SLP Start Date: 05/24/18 Stop Date: 05/24/18 Status: Completed Lactated Ringers (Bolus) IV 500 mL, 500 ml/hr, Infuse Over: 1 hr, Route: IV, ONCE, Priority: STAT, Dosing We ight 80.364 kg, Start date: 05/24/18 1:19:00 SLP, Stop date: 05/24/18 1:19:00 CS T Start Date: 05/24/18 Stop Date: 05/24/18 Status: Completed Lactated Ringers (Bolus) IV 500 mL, 500 ml/hr, Infuse Over: 1 hr, Route: IV, 500, Drug form: INJ, ONCE, Prio rity: STAT, Dosing Weight 80.364 kg, Start date: 05/23/18 23:48:00 SLP, Stop floresita e: 05/23/18 23:48:00 SLP Start Date: 05/23/18 Stop Date: 05/23/18 Status: Completed Lactated Ringers Injection IV (ANES) 1000 mL Route: IV, Total Volume: 1,000, Start date: 05/23/18 7:34:00 SLP, Stop date: 8:34:00 SLP Start Date: 05/23/18 Stop Date: 05/23/18 Status: Completed Lactated Ringers IV 1,000 mL 1,000 mL, Rate: 65 ml/hr, Infuse over: 15.4 hr, Route: IV, Dosing Weight 71.364 kg, Total Volume: 1,000, Start date: 05/23/18 16:26:00 SLP, Duration: 30 day, St op date: 06/22/18 16:25:00 SLP, 1.8, m2 Start Date: 05/23/18 Stop Date: 05/25/18 Status: Discontinued lansoprazole 30 mg, 10 mL, Route: NG, Drug form: SUSP, Before Breakfast, Dosing Weight 71.364 , kg, Start date: 05/24/18 7:30:00 SLP, Duration: 30 day, Stop date: 06/22/18 7: 30:00 SLP Notes: Take 1 hour before or 2 hours after meal; Expires in 14 days. Shake well before use. (Same as:Prevacid) Compounded Product - formulation not commerci ally available Start Date: 05/24/18 Stop Date: 05/25/18 Status: Discontinued lansoprazole 30 mg, 10 mL, Route: NG, Drug form: SUSP, Daily, Dosing Weight 71.364, kg, Start date: 05/24/18 9:00:00 SLP, Duration: 30 day, Stop date: 06/22/18 9:00:00 SLP Notes: Take 1 hour before or 2 hours after meal; Expires in 14 days. Shake well before use. (Same as:Prevacid) Compounded Product - formulation not commerci ally available Start Date: 05/24/18 Stop Date: 05/24/18 Status: Canceled Levophed 8 mg in 250 mL (Titrate.) IV 8 mg + Sodium Chloride 0.9% IV 242 mL 8 mg, 8 mL, Rate: Titrate, Start Dose: 5 microgram/min, Titration: 2 microgram/m in every 2-5 minutes, Goal(s): MAP >=65 mmHg, Max Dose: 70 microgram/min, Route: IV, Dosing Weight 80.364 kg, Total Volume: 250, Start date: 05/24/18 6:06:00 SLP, Duratio... Notes: Not for direct administration - DILUTE. Protect from light. (Same as:Levo phed). Administer by either central venous catheter or peripherally-inserted raphael tral catheter (PICC) line. Start Date: 05/24/18 Stop Date: 05/25/18 Status: Discontinued lidocaine (ANES) Route: IV, Drug form: INJ, ONCE, Stop date: 05/23/18 8:54:00 SLP Start Date: 05/23/18 Stop Date: 05/23/18 Status: Completed Lopressor 25 mg, 1 tab, Route: PO, Drug form: TAB, BID, Start date: 05/28/18 21:00:00 SLP, Duration: 30 day, Stop date: 06/27/18 9:00:00 SLP Notes: (Same as: Lopressor) Start Date: 05/28/18 Stop Date: 06/03/18 Status: Discontinued losartan 100 mg, 2 tab, Route: PO, Drug form: TAB, Daily, Dosing Weight 80.364, kg, Start date: 05/28/18 9:00:00 SLP, Duration: 30 day, Stop date: 06/26/18 9:00:00 SLP Notes: (Same as: Mariaa) Start Date: 05/28/18 Stop Date: 06/03/18 Status: Discontinued losartan 100 mg, 2 tab, Route: PO, Drug form: TAB, Daily, Dosing Weight 80.364, kg, Start date: 05/26/18 13:21:00 SLP, Duration: 30 day, Stop date: 06/25/18 9:00:00 SLP Notes: (Same as: Mariaa) Start Date: 05/26/18 Stop Date: 05/28/18 Status: Discontinued magnesium oxide 800 mg, 2 tab, Route: PO, Drug form: TAB, PRN, Dosing Weight 80.364, kg, PRN Abn ormal Lab Result, FOR ICU USE ONLY, Start date: 05/24/18 0:10:00 SLP, Duration: 30 day, Stop date: 06/23/18 0:09:00 SLP Notes: (Same as: Mag-Ox 400)Magnesium oxide [id number] elemental magnesiumDose= ____mg magnesium oxide (___mg elemental magnesium) Start Date: 05/24/18 Stop Date: 05/28/18 Status: Discontinued magnesium sulfate 2 gm, 50 mL, Route: IVPB, Drug form: INJ, PRN, Dosing Weight 80.364, kg, PRN Abn ormal Lab Result, Start date: 05/24/18 0:10:00 SLP, Duration: 30 day, Stop date: 06/23/18 0:09:00 SLP, FOR ICU USE ONLY Notes: WASTE: F/P - Sink; E - Municipal Trash Bin Start Date: 05/24/18 Stop Date: 05/28/18 Status: Discontinued metoprolol 5 mg/5 ml INJ 5 mg, 5 mL, Route: IVP, Drug form: INJ, Q6H, Dosing Weight 71.364, kg, PRN Other -See Comment, Start date: 05/23/18 16:26:00 SLP, Duration: 30 day, Stop date: 0 06/30/18 10:23:00 SLP Notes: (Same as: Lopressor)Push over 2 minutes Start Date: 05/23/18 Stop Date: 06/03/18 Status: Discontinued metoprolol 50 mg oral tablet, extended release 50 mg=1 tab, PO, Daily, 0 Refill(s) Start Date: 05/29/18 Status: Ordered metoprolol extended release 50 mg, PO, Daily, 0 Refill(s) Start Date: 05/23/18 Stop Date: 05/28/18 Status: Discontinued metoprolol extended release 50 mg, 1 tab, Route: PO, Drug form: ERTAB, Daily, Start date: 05/28/18 9:00:[address], Duration: 30 day, Stop date: 06/26/18 9:00:00 SLP Notes: (Same as: Toprol XL) May split tab, but do not crush. Start Date: 05/28/18 Stop Date: 06/01/18 Status: Discontinued metoprolol extended release 50 mg, 1 tab, Route: PO, Drug form: ERTAB, Daily, Start date: 05/26/18 13:21:00 SLP, Duration: 30 day, Stop date: 06/25/18 9:00:00 SLP Notes: (Same as: Toprol XL) Start Date: 05/26/18 Stop Date: 05/28/18 Status: Discontinued midazolam (ANES) Route: IV, Drug form: SOLN, ONCE, Stop date: 05/23/18 8:54:00 SLP Start Date: 05/23/18 Stop Date: 05/23/18 Status: Completed norepinephrine (ANES) Route: IV, Drug form: INJ, ONCE, Stop date: 05/23/18 17:20:00 SLP Start Date: 05/23/18 Stop Date: 05/23/18 Status: Completed norepinephrine (ANES) Route: IV, Drug form: INJ, ONCE, Stop date: 05/23/18 12:09:00 SLP Start Date: 05/23/18 Stop Date: 05/23/18 Status: Completed norepinephrine (ANES) 10 microgram Route: IV, Drug form: INJ, Start date: 05/23/18 8:07:00 SLP, Stop date: 05/23/18 9:07:00 SLP Start Date: 05/23/18 Stop Date: 05/23/18 Status: Completed normal saline 0.9% IV 1,000 mL 1,000 mL, Rate: 50 ml/hr, Infuse over: 20 hr, Route: IV, Dosing Weight 80.364 kg , Total Volume: 1,000, Start date: 05/29/18 6:57:00 SLP, Duration: 30 day, Stop date: 06/28/18 6:56:00 SLP, 1.92, m2 Start Date: 05/29/18 Stop Date: 05/30/18 Status: Discontinued ocular lubricant 1 appl, Route: BOTH EYES, Q6H, Drug form: OINT, Start date: 05/24/18 0:00:00 SLP , Duration: 30 day, Stop date: 06/22/18 18:00:00 SLP Notes: (Same as: Lacri-Lube, Puralube, Duratears Naturale, Artificial Tears, and Tears Again ) Start Date: 05/24/18 Stop Date: 05/24/18 Status: Discontinued omeprazole 20 mg, Route: DHT, Daily, Dosing Weight 80.364, kg, Start date: 05/30/18 9:00:00 SLP, Duration: 30 day, Stop date: 06/28/18 9:00:00 SLP Start Date: 05/30/18 Stop Date: 05/30/18 Status: Discontinued ondansetron (ANES) Route: IV, Drug form: INJ, ONCE, Stop date: 05/23/18 21:42:00 SLP Start Date: 05/23/18 Stop Date: 05/23/18 Status: Completed oxyCODONE 5 mg/5 mL oral solution 10 mg, 10 mL, Route: PO, Drug form: LIQ, Q6H, Dosing Weight 80.364, kg, PRN Pain Score 7-10, Start date: 05/24/18 0:15:00 SLP, Duration: 30 day, Stop date: 05/13 0:14:00 SLP Notes: (Same as: 'Roxicodone) Start Date: 05/24/18 Stop Date: 05/28/18 Status: Discontinued oxyCODONE 5 mg/5 mL oral solution 5 mg, 5 mL, Route: PO, Drug form: LIQ, Q6H, Dosing Weight 80.364, kg, PRN Pain S core 4-6, Start date: 05/24/18 0:15:00 SLP, Duration: 30 day, Stop date: 9 0:14:00 SLP Notes: (Same as: 'Roxicodone) Start Date: 05/24/18 Stop Date: 06/01/18 Status: Discontinued pantoprazole + Sodium Chloride 0.9% IV 50 mL 80 mg, Route: IV, ONCE, Dosing Weight 80.364, kg, Start date: 05/25/18 10:16:00 SLP, Stop date: 05/25/18 10:16:00 SLP, > 40 kg; loading dose; Pediatric Dosing Start Date: 05/25/18 Stop Date: 05/25/18 Status: Completed pantoprazole additive 80 mg + Sodium Chloride 0.9% IV 100 mL 100 mL, Rate: 10 ml/hr, Infuse over: 10 hr, Route: IVPB, Dosing Weight 80.364 kg , Total Volume: 100, Infuse at 8 mg/hr for 72 hrs for GI bleeding, Start date: 0 05/25/18 10:17:00 SLP, Duration: 72 hr, Stop date: 05/28/18 10:16:00 SLP, 1.92, m 2 Start Date: 05/25/18 Stop Date: 05/26/18 Status: Discontinued Peridex 0.12% topical liquid 15 mL, Route: Swab Mouth, BID, Drug form: LIQ, Start date: 05/23/18 17:00:00 SLP , Duration: 30 day, Stop date: 06/22/18 9:00:00 SLP Notes: (Same As: Peridex) Start Date: 05/23/18 Stop Date: 06/03/18 Status: Discontinued Phenergan 12.5 mg, 0.5 mL, Route: IVPB, Drug form: INJ, ONCE, Dosing Weight 80.364, kg, St art date: 05/24/18 12:28:00 SLP, Stop date: 05/24/18 12:28:00 SLP Notes: Do not give IV push. (Same as: Phenergan) Start Date: 05/24/18 Stop Date: 05/24/18 Status: Completed Phenergan 12.5 mg, 0.5 mL, Route: IVPB, Drug form: INJ, Q4H, Dosing Weight 80.364, kg, PRN Nausea & Vomiting, Start date: 05/24/18 12:27:00 SLP, Duration: 30 day, Stop date: 06/23/18 12:26:00 SLP Notes: Do not give IV push. (Same as: Phenergan) Start Date: 05/24/18 Stop Date: 05/28/18 Status: Discontinued PHOS-NaK 1 pkt, Route: DHT, Drug Form: PDR/REC, Dosing Weight 80.364, kg, TID-Before Meal s, Start date: 05/28/18 11:30:00 SLP, Duration: 30 day, Stop date: 06/27/18 7:30 :00 SLP Notes: (Same as: Phos-NaK) Each 1.5 gm pkt has 250mg phosphorous. Mix w/2.5oz w ater and stir. Start Date: 05/28/18 Stop Date: 05/31/18 Status: Discontinued potassium chloride 10 mEq, 50 mL, Route: IVPB, Drug form: INJ, PRN, Dosing Weight 80.364, kg, PRN A bnormal Lab Result, Via peripheral line, Start date: 05/24/18 0:10:00 SLP, Durat ion: 30 day, Stop date: 06/23/18 0:09:00 SLP, FOR ICU USE ONLY Notes: (Same as: KCL) Infuse over 2 hours. Start Date: 05/24/18 Stop Date: 05/28/18 Status: Discontinued potassium chloride 20 mEq, 100 mL, Route: IVPB, Drug form: INJ, PRN, Dosing Weight 80.364, kg, PRN Abnormal Lab Result, Via central line, Start date: 05/24/18 0:10:00 SLP, Duratio n: 30 day, Stop date: 06/23/18 0:09:00 SLP, FOR ICU USE ONLY Notes: (Same as: KCL) Infuse no faster than 10 mEq/hr if given peripherally. Start Date: 05/24/18 Stop Date: 05/28/18 Status: Discontinued potassium chloride 20 mEq, 15 mL, Route: NJ, Drug form: LIQ, PRN, Dosing Weight 80.364, kg, PRN Abn ormal Lab Result, Start date: 05/24/18 0:10:00 SLP, Duration: 30 day, Stop date: 06/23/18 0:09:00 SLP, FOR ICU USE ONLY Notes: (Same as: Potassium Chloride) Start Date: 05/24/18 Stop Date: 05/28/18 Status: Discontinued potassium chloride 20 mEq, 1 tab, Route: PO, Drug form: ERTAB, PRN, Dosing Weight 80.364, kg, PRN A bnormal Lab Result, Start date: 05/24/18 0:10:00 SLP, Duration: 30 day, Stop floresita e: 06/23/18 0:09:00 SLP, FOR ICU USE ONLY Notes: (Same as: K-Dur 20)"Do Not Crush" Give with food and full glass of water For patients unable to swallow tablet, dissolve in one half glass of water. Allo w about 2 minutes for the tablets to disintegrate. Stir before giving to prepare slurry and administer.Please exclude Patients with feeding tube less than 14 [place] (Dobhoff, J-tube etc) and pediatric and patients. Start Date: 05/24/18 Stop Date: 05/28/18 Status: Discontinued potassium chloride 40 mEq, 30 mL, Route: PO, Drug form: LIQ, ONCE, Dosing Weight 80.364, kg, Start date: 05/29/18 9:18:00 SLP, Stop date: 05/29/18 9:18:00 SLP Notes: (Same as: Potassium Chloride) Start Date: 05/29/18 Stop Date: 05/29/18 Status: Completed potassium chloride 20 mEq oral tablet, extended release 40 mEq, 2 tab, Route: PO, Drug form: ERTAB, ONCE, Dosing Weight 80.364, kg, Star t date: 05/29/18 8:19:00 SLP, Stop date: 05/29/18 8:19:00 SLP Notes: (Same as: K-Dur 20)"Do Not Crush" Give with food and full glass of water For patients unable to swallow tablet, dissolve in one half glass of water. Allo w about 2 minutes for the tablets to disintegrate. Stir before giving to prepare slurry and administer.Please exclude Patients with feeding tube less than 14 [place] (Dobhoff, J-tube etc) and pediatric and patients. Start Date: 05/29/18 Stop Date: 05/29/18 Status: Deleted potassium chloride 20 mEq oral tablet, extended release 40 mEq, 30 mL, Route: DHT, Drug form: LIQ, ONCE, Dosing Weight 80.364, kg, Start date: 05/30/18 8:31:00 SLP, Stop date: 05/30/18 8:31:00 SLP Notes: (Same as: Potassium Chloride) Start Date: 05/30/18 Stop Date: 05/30/18 Status: Completed potassium phosphate 20 mmol, Route: DHT, ONCE, Dosing Weight 80.364, kg, Start date: 05/27/18 9:27:0 0 SLP, Stop date: 05/27/18 9:27:00 SLP Start Date: 05/27/18 Stop Date: 05/27/18 Status: Deleted potassium phosphate + Sodium Chloride 0.9% IV 250 mL 30 mmol, 10 mL, Route: IVPB, PRN, Dosing Weight 80.364, kg, PRN Abnormal Lab Res ult, Start date: 05/24/18 0:10:00 SLP, Duration: 30 day, Stop date: 06/23/18 0:0 9:00 SLP, FOR ICU USE ONLY Notes: (Same as: K Phosphate.)Do not infuse phosphorous concurrently in the same line as TPN or IVF that contains calcium. For double lumen central lines, phosp horous may be infused in a separate lumen from TPN. 1 mMol phoshate has 1.47 mE q potassium Infuse over 4 hours Start Date: 05/24/18 Stop Date: 05/28/18 Status: Discontinued potassium phosphate + Sodium Chloride 0.9% IV 250 mL 15 mmol, 5 mL, Route: IVPB, PRN, Dosing Weight 80.364, kg, PRN Abnormal Lab Resu lt, Start date: 05/24/18 0:10:00 SLP, Duration: 30 day, Stop date: 06/23/18 0:09 :00 SLP, FOR ICU USE ONLY Notes: (Same as: K Phosphate.)Do not infuse phosphorous concurrently in the same line as TPN or IVF that contains calcium. For double lumen central lines, phosp horous may be infused in a separate lumen from TPN. 1 mMol phoshate has 1.47 mE q potassium Infuse over 4 hours Start Date: 05/24/18 Stop Date: 05/28/18 Status: Discontinued potassium phosphate + Sodium Chloride 0.9% IV 250 mL 45 mmol, 15 mL, Route: IVPB, PRN, Dosing Weight 80.364, kg, PRN Abnormal Lab Res ult, Start date: 05/24/18 0:10:00 SLP, Duration: 30 day, Stop date: 06/23/18 0:0 9:00 SLP, FOR ICU USE ONLY Notes: (Same as: K Phosphate.)Do not infuse phosphorous concurrently in the same line as TPN or IVF that contains calcium. For double lumen central lines, phosp horous may be infused in a separate lumen from TPN. 1 mMol phoshate has 1.47 mE q potassium Infuse over 4 hours Start Date: 05/24/18 Stop Date: 05/28/18 Status: Discontinued potassium phosphate-sodium phosphate 250 mg-280 mg-160 mg oral powder for recons titution 2 pkt, Route: PO, Drug Form: PDR/REC, Dosing Weight 80.364, kg, PRN, PRN Abnorma l Lab Result, FOR ICU USE ONLY, Start date: 05/24/18 0:10:00 SLP, Duration: 30 d ay, Stop date: 06/23/18 0:09:00 SLP Notes: (Same as: Phos-NaK) Each 1.5 gm pkt has 250mg phosphorous. Mix w/2.5oz w ater and stir. Start Date: 05/24/18 Stop Date: 05/28/18 Status: Discontinued potassium phosphate-sodium phosphate 250 mg-280 mg-160 mg oral powder for recons titution 2 pkt, Route: PO, Drug Form: PDR/REC, Dosing Weight 80.364, kg, Q8H, Start date: 05/25/18 16:00:00 SLP, Duration: 2 day, Stop date: 05/27/18 8:00:00 SLP Notes: (Same as: Phos-NaK) Each 1.5 gm pkt has 250mg phosphorous. Mix w/2.5oz w ater and stir. Start Date: 05/25/18 Stop Date: 05/27/18 Status: Completed Prevacid 30 mg, 10 mL, Route: DHT, Drug form: SUSP, Daily, Start date: 05/30/18 12:00:00 SLP, Duration: 30 day, Stop date: 06/29/18 9:00:00 SLP Notes: Take 1 hour before or 2 hours after meal; Expires in 14 days. Shake well before use. (Same as:Prevacid) Compounded Product - formulation not commerci ally available Start Date: 05/30/18 Stop Date: 06/03/18 Status: Discontinued propofol (ANES) Route: IV, Drug form: INJ, ONCE, Stop date: 05/23/18 22:39:00 SLP Start Date: 05/23/18 Stop Date: 05/23/18 Status: Completed propofol (ANES) Route: IV, Drug form: INJ, ONCE, Stop date: 05/23/18 8:54:00 SLP Start Date: 05/23/18 Stop Date: 05/23/18 Status: Completed Protonix 40 mg, 1 pkt, Route: PO, Drug form: GRAN/REC, Before Dinner, Dosing Weight 80.36 4, kg, Start date: 05/26/18 16:30:00 SLP, Duration: 30 day, Stop date: 06/24/18 16:30:00 SLP Start Date: 05/26/18 Stop Date: 05/30/18 Status: Discontinued rocuronium (ANES) Route: IV, Drug form: INJ, ONCE, Stop date: 05/23/18 8:54:00 SLP Start Date: 05/23/18 Stop Date: 05/23/18 Status: Completed Saline Flush 0.9% 10 ml, Route: IVP, Drug Form: INJ, Dosing Weight 71.364, kg, PRN, PRN Line Flush , Start date: 05/23/18 16:26:00 SLP, Duration: 30 day, Stop date: 06/22/18 16:25 :00 SLP Notes: Same as: BD Posiflush Sterile Start Date: 05/23/18 Stop Date: 05/28/18 Status: Discontinued senna 17.6 mg, 10 mL, Route: NG, Drug Form: SYRP, Dosing Weight 71.364, kg, Q12H, Star t date: 05/24/18 9:00:00 SLP, Duration: 30 day, Stop date: 06/22/18 21:00:00 SLP Notes: (Same as: Senokot) Start Date: 05/24/18 Stop Date: 05/28/18 Status: Discontinued Sodium Chloride 0.9% (titrate) 250 mL 250 mL, Rate: To prime line and flush remaining blood products., Dosing Weight 8 0.364, kg, Route: IV, Total Volume: 250, Start Date: 05/24/18 17:08:00 SLP, Dura tion: 30 day, Stop date: 06/23/18 17:07:00 SLP, Replace Every: 24 hr Start Date: 05/24/18 Stop Date: 05/25/18 Status: Discontinued sodium phosphate + Sodium Chloride 0.9% IV 250 mL 15 mmol, 5 mL, Route: IVPB, PRN, Dosing Weight 80.364, kg, PRN Abnormal Lab Resu lt, Start date: 05/24/18 0:10:00 SLP, Duration: 30 day, Stop date: 06/23/18 0:09 :00 SLP, FOR ICU USE ONLY Notes: Infuse over 4 hour. Do not infuse phosphorous concurrently in the same li ne as TPN or IVF that contains calcium. For double lumen central lines, phosphor ous may be infused in a separate lumen from TPN. Start Date: 05/24/18 Stop Date: 05/28/18 Status: Discontinued sodium phosphate + Sodium Chloride 0.9% IV 250 mL 45 mmol, 15 mL, Route: IVPB, PRN, Dosing Weight 80.364, kg, PRN Abnormal Lab Res ult, Start date: 05/24/18 0:10:00 SLP, Duration: 30 day, Stop date: 06/23/18 0:0 9:00 SLP, FOR ICU USE ONLY Notes: Infuse over 4 hour. Do not infuse phosphorous concurrently in the same li ne as TPN or IVF that contains calcium. For double lumen central lines, phosphor ous may be infused in a separate lumen from TPN. Start Date: 05/24/18 Stop Date: 05/28/18 Status: Discontinued sodium phosphate + Sodium Chloride 0.9% IV 250 mL 30 mmol, 10 mL, Route: IVPB, PRN, Dosing Weight 80.364, kg, PRN Abnormal Lab Res ult, Start date: 05/24/18 0:10:00 SLP, Duration: 30 day, Stop date: 06/23/18 0:0 9:00 SLP, FOR ICU USE ONLY Notes: Infuse over 4 hour. Do not infuse phosphorous concurrently in the same li ne as TPN or IVF that contains calcium. For double lumen central lines, phosphor ous may be infused in a separate lumen from TPN. Start Date: 05/24/18 Stop Date: 05/28/18 Status: Discontinued Synthroid 100 microgram, 1 tab, Route: PO, Drug form: TAB, [id number], Dosing Weight 80.364, k g, Start date: 05/24/18 7:49:00 SLP, Duration: 30 day, Stop date: 06/23/18 6:30: 00 SLP Notes: Take 1 hour before or 2 hours after meal; Enteral feeds may interefere wi th the absorption of this medication. (Same as:Levothroid, Synthroid) Start Date: 05/24/18 Stop Date: 06/03/18 Status: Discontinued thiamine + Sodium Chloride 0.9% IV 100 mL 500 mg, 5 mL, Route: IVPB, Daily, Dosing Weight 80.364, kg, Priority: NOW, Start date: 05/24/18 10:18:00 SLP, Duration: 5 doses or times, Stop date: 05/28/18 9: 00:00 SLP Notes: (Same As: Vitamin B1) Start Date: 05/24/18 Stop Date: 05/25/18 Status: Discontinued tramadol 50 mg oral tablet 50 mg=1 tab, PO, Q6H, PRN Pain, X 5 day, # 20 tab, 0 Refill(s) Start Date: 06/03/18 Stop Date: 06/08/18 Status: Ordered tramadol 50 mg oral tablet 50 mg, 1 tab, Route: PO, Drug form: TAB, Q12H, Dosing Weight 80.364, kg, Start d ate: 05/24/18 12:34:00 SLP, Duration: 2 day, Stop date: 05/26/18 9:00:00 SLP Start Date: 05/24/18 Stop Date: 05/26/18 Status: Completed tramadol 50 mg oral tablet 50 mg, 1 tab, Route: PO, Drug form: TAB, Q6H, Dosing Weight 80.364, kg, Start da te: 05/24/18 6:00:00 SLP, Duration: 2 day, Stop date: 05/26/18 0:00:00 SLP Notes: Not to exceed 400mg/day. (Same As: Ultram) Start Date: 05/24/18 Stop Date: 05/24/18 Status: Discontinued tramadol 50 mg oral tablet 50 mg, 1 tab, Route: PO, Drug form: TAB, Q6H, Dosing Weight 80.364, kg, PRN Pain Score 1-3, Start date: 05/24/18 0:15:00 SLP, Duration: 30 day, Stop date: 06/23 0:14:00 SLP Start Date: 05/24/18 Stop Date: 06/03/18 Status: Discontinued Tylenol 650 mg, 20.3 mL, Route: PO, Drug form: LIQ, Q6H, Dosing Weight 80.364, kg, PRN P ain 1-3/Temp > 100.4 F, Start date: 05/26/18 9:00:00 SLP, Duration: 30 day, Stop date: 06/25/18 8:59:00 SLP Notes: Max [id number]/day (4 gm/day). (Same as: Tylenol) Start Date: 05/26/18 Stop Date: 06/03/18 Status: Discontinued Unasyn 3 gm, Route: IVPB, Drug form: PDR/INJ, [id number], Dosing Weight 71.364, kg, Start d ate: 05/23/18 17:00:00 SLP, Duration: 30 day, Stop date: 06/22/18 13:00:00 SLP Notes: Dosing based on Ampicillin component (Same as: Unasyn) Start Date: 05/23/18 Stop Date: 05/24/18 Status: Discontinued Unasyn 3 gm, Route: IVPB, [id number], Dosing Weight 80.364, kg, Start date: 05/26/18 14:00 :00 SLP, Duration: 30 day, Stop date: 06/25/18 2:00:00 SLP Start Date: 05/26/18 Stop Date: 05/26/18 Status: Discontinued Unasyn 3 gm, Route: IVPB, Drug form: PDR/INJ, [id number], Dosing Weight 80.364, kg, Priorit y: NOW, Start date: 05/26/18 15:01:00 SLP, Duration: 30 day, Stop date: 06/25/18 8:00:00 SLP Notes: Dosing based on Ampicillin component (Same as: Unasyn) Start Date: 05/26/18 Stop Date: 06/03/18 Status: Discontinued vancomycin 1.25 gm, 250 mL, Route: IV, Drug form: INJ, [id number], Dosing Weight 80.364, kg, S tart date: 05/24/18 5:00:00 SLP, Duration: 30 day, Stop date: 06/22/18 5:00:[address], ABX Indication: ED - Suspected Sepsis Notes: TIME CRITICAL MEDICATIONSame as: Vancocin-NS (premixed)Infusion rate< 1000 mg: infuse over 1 [id number] - 1500 mg: infuse over 1.5 [id number] - 2000 mg: infuse over 2 hours> 2001 mg: infuse over 2.5 hours Start Date: 05/24/18 Stop Date: 05/24/18 Status: Deleted vancomycin 1.5 gm, Route: IV, ONCE, Dosing Weight 80.364, kg, Start date: 05/24/18 7:16:00 SLP, Stop date: 05/24/18 7:16:00 SLP, ABX Indication: Surgical Prophylaxis Start Date: 05/24/18 Stop Date: 05/24/18 Status: Discontinued vancomycin 1,000 mg, Route: IVPB, Drug form: INJ, [id number], Dosing Weight 80.364, kg, Start date: 05/24/18 20:00:00 SLP, Duration: 7 day, Stop date: 05/31/18 8:00:00 SLP, A BX Indication: Surgical Prophylaxis Start Date: 05/24/18 Stop Date: 05/24/18 Status: Deleted vancomycin 1.25 gm, Route: IV, [id number], Dosing Weight 80.364, kg, Start date: 05/24/18 20:0 0:00 SLP, Duration: 30 day, Stop date: 06/23/18 8:00:00 SLP, ABX Indication: Carlos gical Prophylaxis Start Date: 05/24/18 Stop Date: 05/24/18 Status: Canceled vancomycin 1 gm, Route: IVPB, Drug form: INJ, [id number], Start date: 05/24/18 21:00:00 SLP, D uration: 7 day, Stop date: 05/31/18 9:00:00 SLP, ABX Indication: Surgical Prophy laxis Notes: TIME CRITICAL MEDICATION(Same As: Vancocin)Infusion rate< 1000 mg: infuse over 1 [id number] - 1500 mg: infuse over 1.5 [id number] - 2000 mg: infuse over 2 hours> 2001 mg: infuse over 2.5 hoursFor adult patients only: Round to nearest 250 mg per Medical Staff approval MEDICATION WASTE Product Size: 1000 mgProduct Wasted: _0__ mg Start Date: 05/24/18 Stop Date: 05/24/18 Status: Canceled vancomycin + Sodium Chloride 0.9% IV 250 mL 1.75 gm, Route: IV, ONCE, Dosing Weight 80.364, kg, Start date: 05/24/18 7:18:00 SLP, Stop date: 05/24/18 7:18:00 SLP, ABX Indication: Surgical Prophylaxis Notes: TIME CRITICAL MEDICATION(Same As: Vancocin)Infusion rate< 1000 mg: infuse over 1 [id number] - 1500 mg: infuse over 1.5 hoursVancomycin FOR IV SET [id number] - 2000 mg: infuse over 2 hours> 2001 mg: infuse over 2.5 hoursFor adult patients only: Round to nearest 250 mg per Medical Staff approval MEDICATION WASTE Product Size: 1000 mgProduct Wasted: _250__ mg Start Date: 05/24/18 Stop Date: 05/24/18 Status: Completed vancomycin + Sodium Chloride 0.9% IV 250 mL 1.25 gm, Route: IV, [id number], Dosing Weight 80.364, kg, Start date: 05/25/18 5:00 :00 SLP, Duration: 30 day, Stop date: 06/23/18 5:00:00 SLP, ABX Indication: ED - Suspected Sepsis Notes: TIME CRITICAL MEDICATION(Same As: Vancocin)Infusion rate< 1000 mg: infuse over 1 [id number] - 1500 mg: infuse over 1.5 hoursVancomycin FOR IV SET [id number] - 2000 mg: infuse over 2 hours> 2001 mg: infuse over 2.5 hoursFor adult patients only: Round to nearest 250 mg per Medical Staff approval MEDICATION WASTE Product Size: 1000 mgProduct Wasted: ___ mg Start Date: 05/25/18 Stop Date: 05/26/18 Status: Discontinued vasopressin (ANES) Route: IV, Drug form: INJ, ONCE, Stop date: 05/23/18 18:55:00 SLP Start Date: 05/23/18 Stop Date: 05/23/18 Status: Completed Visipaque 320mg/ml 70 mL, Route: IVP, Drug Form: SOLN, Dosing Weight 80.364, kg, ONCALL, STAT, Star t date: 05/26/18 16:12:00 SLP, Duration: 1 doses or times, Stop date: 05/27/18 0 :00:00 SLP, Dose=2.2ml/kg, Max [id number] -- "To be infused by Radiology Staff ONLY" Notes: (Same as: Visipaque).WASTE: F/P - Black; E - Municipal Trash Bin Start Date: 05/26/18 Stop Date: 05/28/18 Status: Discontinued Zofran 4 mg, 2 mL, Route: IVP, Drug form: INJ, Q8H, Dosing Weight 80.364, kg, PRN Nause a, Start date: 05/24/18 3:42:00 SLP, Duration: 30 day, Stop date: 06/23/18 3:41: 00 SLP Notes: (Same as: Zofran) MEDICATION WASTE Product Size: 4 mgProduct Was bren: ___ mg Start Date: 05/24/18 Stop Date: 06/03/18 Status: Discontinued Results BLOOD BANK RESULTS 1 2 3 Most recent to oldest [Reference Range]: O POS *Unknown* (05/23/18 6:16 AM) ABO/Rh Negative (05/23/18 6:16 AM) Antibody Scrn Product available (05/25/18 10:12 AM) Product available (05/24/18 10:06 PM) Product available (05/24/18 5:08 PM) RBC product ELECTROLYTES 1 2 3 Most recent to oldest [Reference Range]: 144 mEq/L (06/03/18 3:25 AM) 143 mEq/L (06/02/18 8:26 AM) 147 mEq/L *HI* (06/02/18 4:36 AM) Sodium Lvl [135-145 mEq/L] 3.8 mEq/L (06/03/18 3:25 AM) 3.6 mEq/L (06/02/18 8:26 AM) 3.4 mEq/L *LOW* (06/02/18 4:36 AM) Potassium Lvl [3.5-5.1 mEq/L] 3.7 mEq/L (06/01/18 10:52 AM) Potassium WB [3.5-5.1 mEq/L] 111 mEq/L *HI* (06/03/18 3:25 AM) 109 mEq/L (06/02/18 8:26 AM) 111 mEq/L *HI* (06/02/18 4:36 AM) Chloride Lvl [95-109 mEq/L] 26 mEq/L (06/03/18 3:25 AM) 29 mEq/L (06/02/18 8:26 AM) 30 mEq/L (06/02/18 4:36 AM) CO2 [24-32 mEq/L] 10.8 mEq/L (06/03/18 3:25 AM) 8.6 mEq/L *LOW* (06/02/18 8:26 AM) 9.4 mEq/L *LOW* (06/02/18 4:36 AM) AGAP [10.0-20.0 mEq/L] CHEM PANEL 1 2 3 Most recent to oldest [Reference Range]: 0.54 mg/dL (06/03/18 3:25 AM) 0.60 mg/dL (06/02/18 8:26 AM) 0.51 mg/dL (06/02/18 4:36 AM) Creatinine Lvl [0.50-1.40 mg/dL] 84 mL/min/1.73m2 1 *NA* (06/03/18 3:25 AM) 81 mL/min/1.73m2 2 *NA* (06/02/18 8:26 AM) 85 mL/min/1.73m2 3 *NA* (06/02/18 4:36 AM) eGFR 17 mg/dL (06/03/18 3:25 AM) 22 mg/dL (06/02/18 8:26 AM) 19 mg/dL (06/02/18 4:36 AM) BUN [7-22 mg/dL] 92 mg/dL (06/03/18 3:25 AM) 121 mg/dL *HI* (06/02/18 8:26 AM) 127 mg/dL *HI* (06/02/18 4:36 AM) Glucose Lvl [70-99 mg/dL] 5.6 g/dL *LOW* (05/26/18 2:13 AM) 5.5 g/dL *LOW* (05/25/18 5:55 AM) 4.7 g/dL *LOW* (05/24/18 9:12 PM) Total Protein [6.4-8.4 g/dL] 3.7 g/dL (05/26/18 2:13 AM) 3.7 g/dL (05/25/18 5:55 AM) 3.0 g/dL *LOW* (05/24/18 9:12 PM) Albumin Lvl [3.5-5.0 g/dL] 1.9 g/dL *LOW* (05/26/18 2:13 AM) 1.8 g/dL *LOW* (05/25/18 5:55 AM) 1.7 g/dL *LOW* (05/24/18 9:12 PM) Globulin [2.7-4.2 g/dL] 1.9 *HI* (05/26/18 2:13 AM) 2.1 *HI* (05/25/18 5:55 AM) 1.8 *HI* (05/24/18 9:12 PM) A/G Ratio [0.7-1.6] 8.5 mg/dL (06/03/18 3:25 AM) 8.7 mg/dL (06/02/18 8:26 AM) 8.3 mg/dL *LOW* (06/02/18 4:36 AM) Calcium Lvl [8.5-10.5 mg/dL] 2.6 mg/dL (05/31/18 5:10 AM) 2.6 mg/dL (05/30/18 5:53 AM) 2.6 mg/dL (05/29/18 4:14 AM) Phosphorus [2.5-4.5 mg/dL] 2.2 mg/dL (05/31/18 5:10 AM) 2.0 mg/dL (05/30/18 5:53 AM) 1.8 mg/dL (05/29/18 4:14 AM) Magnesium Lvl [1.8-2.4 mg/dL] 8 unit/L (05/26/18 2:13 AM) 8 unit/L (05/25/18 5:55 AM) 8 unit/L (05/24/18 9:12 PM) ALT [0-65 unit/L] 26 unit/L (05/26/18 2:13 AM) 23 unit/L (05/25/18 5:55 AM) 21 unit/L (05/24/18 9:12 PM) AST [0-37 unit/L] 43 unit/L (05/26/18 2:13 AM) 35 unit/L *LOW* (05/25/18 5:55 AM) 32 unit/L *LOW* (05/24/18 9:12 PM) Alk Phos [39-136 unit/L] 0.7 mg/dL (05/26/18 2:13 AM) 0.8 mg/dL (05/25/18 5:55 AM) 0.6 mg/dL (05/24/18 9:12 PM) Bili Total [0.2-1.3 mg/dL] 0.2 mg/dL (05/26/18 2:13 AM) 0.3 mg/dL (05/25/18 5:55 AM) 0.2 mg/dL (05/24/18 9:12 PM) Bili Direct [0.0-0.3 mg/dL] 0.5 mg/dL (05/26/18 2:13 AM) 0.5 mg/dL (05/25/18 5:55 AM) 0.4 mg/dL (05/24/18 9:12 PM) Bili Indirect [0.0-1.0 mg/dL] 1.7 mMol/L (05/24/18 3:32 PM) 3.9 mMol/L *HI* (05/24/18 10:32 AM) 2.7 mMol/L *HI* (05/24/18 8:09 AM) Lactic Acid Lvl [0.5-2.2 mMol/L] 0.40 ng/mL *HI* (05/25/18 5:55 AM) 0.35 ng/mL *HI* (05/24/18 6:37 AM) Procalcitonin Lvl [0.00-0.10 ng/mL] 1Result Comment: The eGFR is calculated using [...] be mul tiplied by the estimated BMI. 3Result Comment: The eGFR is calculated using the [...] be mul tiplied by the estimated BMI. CARDIAC ENZYMES 1 2 3 Most recent to oldest [Reference Range]: 0.56 ng/mL 1 *CRIT* (05/26/18 8:00 AM) 0.44 ng/mL *HI* (05/26/18 2:13 AM) 0.45 ng/mL *HI* (05/25/18 7:58 PM) Troponin-I [0.00-0.40 ng/mL] 1Result Comment: Critical Result(s) called to Romero Osborne at 05/26/2018 09:09 by [email or web address] . Read back OK. LIPIDS 1 2 3 Most recent to oldest [Reference Range]: 2.32 *LOW* (05/24/18 8:09 AM) CHD Risk [3.90-5.80] 139 mg/dL (05/24/18 8:09 AM) Chol [<=199 mg/dL] 105 mg/dL (05/24/18 8:09 AM) Trig [<=149 mg/dL] 60 mg/dL *LOW* (05/24/18 8:09 AM) HDL [>=61 mg/dL] 58 mg/dL (05/24/18 8:09 AM) LDL (Calculated) [<=99 mg/dL] 21 *NA* (05/24/18 8:09 AM) VLDL SPECIAL CHEMISTRY 1 2 3 Most recent to oldest [Reference Range]: 5.4 % (05/24/18 8:09 AM) Hgb A1C [<=5.6 %] PARATHYROID PROFILE 1 2 3 Most recent to oldest [Reference Range]: 1.18 mMol/L (05/31/18 5:10 AM) 1.19 mMol/L (05/30/18 5:53 AM) 1.20 mMol/L (05/29/18 4:14 AM) Ca Ion WB [1.05-1.25 mMol/L] 1.18 mMol/L (05/31/18 5:10 AM) 1.19 mMol/L (05/30/18 5:53 AM) 1.20 mMol/L (05/29/18 4:14 AM) Ca Norm WB [1.05-1.25 mMol/L] TOXICOLOGY 1 2 3 Most recent to oldest [Reference Range]: 21.8 ug/ml *NA* (05/26/18 8:00 AM) 15.6 ug/ml *NA* (05/24/18 9:12 PM) Vanco Lvl ENDOCRINOLOGY 1 2 3 Most recent to oldest [Reference Range]: 56.8 ug/dl *NA* (05/24/18 8:09 AM) Cortisol URINE AND STOOL 1 2 3 Most recent to oldest [Reference Range]: Clear (05/24/18 11:23 AM) UA Turbidity [Clear] Yellow *NA* (05/24/18 11:23 AM) UA Color [Yellow] 5.0 (05/24/18 11:23 AM) UA pH [5.0-8.0] 1.020 (05/24/18 11:23 AM) UA Spec Grav [<=1.030] Negative mg/dL (05/24/18 11:23 AM) UA Glucose [Negative mg/dL] Negative (05/24/18 11:23 AM) UA Blood [Negative] Trace mg/dL *ABN* (05/24/18 11:23 AM) UA Ketones [Negative mg/dL] Negative mg/dL (05/24/18 11:23 AM) UA Protein [Negative mg/dL] 0.2 EU/dL (05/24/18 11:23 AM) UA Urobilinogen [0.1-1.0 EU/dL] Negative *NA* (05/24/18 11:23 AM) UA Bili [Negative] Negative (05/24/18 11:23 AM) UA Leuk Est [Negative] Negative (05/24/18 11:23 AM) UA Nitrite [Negative] 28 /HPF *HI* (05/24/18 11:23 AM) UA WBC [0-5 /HPF] 13 /HPF *HI* (05/24/18 11:23 AM) UA RBC [0-2 /HPF] Occasional /HPF *NA* (05/24/18 11:23 AM) UA Bacteria [None Seen /HPF] RARE *NA* (05/24/18 11:23 AM) UA Sq Epi 10 /LPF *HI* (05/24/18 11:23 AM) UA Hyal Cast [0-2 /LPF] Occasional /HPF *NA* (05/24/18 11:23 AM) UA Amorph Jessica [None Seen /HPF] Few /LPF *NA* (05/24/18 11:23 AM) UA Mucus [None Seen /LPF] HEMATOLOGY 1 2 3 Most recent to oldest [Reference Range]: 7.7 K/CMM (06/03/18 3:25 AM) 7.4 K/CMM (06/02/18 8:26 AM) 8.7 K/CMM (05/31/18 5:10 AM) WBC [3.7-10.4 K/CMM] 3.35 M/CMM *LOW* (06/03/18 3:25 AM) 3.49 M/CMM *LOW* (06/02/18 8:26 AM) 3.57 M/CMM *LOW* (05/31/18 5:10 AM) RBC [4.20-5.40 M/CMM] 10.0 g/dL *LOW* (06/03/18 3:25 AM) 10.4 g/dL *LOW* (06/02/18 8:26 AM) 10.6 g/dL *LOW* (05/31/18 5:10 AM) Hgb [12.0-16.0 g/dL] 31.6 % *LOW* (06/03/18 3:25 AM) 31.6 % *LOW* (06/02/18 8:26 AM) 32.2 % *LOW* (05/31/18 5:10 AM) Hct [36.0-48.0 %] 94.3 fL (06/03/18 3:25 AM) 90.5 fL (06/02/18 8:26 AM) 90.3 fL (05/31/18 5:10 AM) MCV [80.0-98.0 fL] 29.9 pg (06/03/18 3:25 AM) 29.9 pg (06/02/18 8:26 AM) 29.8 pg (05/31/18 5:10 AM) MCH [27.0-31.0 pg] 31.7 g/dL *LOW* (06/03/18 3:25 AM) 33.0 g/dL (06/02/18 8:26 AM) 33.0 g/dL (05/31/18 5:10 AM) MCHC [32.0-36.0 g/dL] 18.4 % *HI* (06/03/18 3:25 AM) 17.3 % *HI* (06/02/18 8:26 AM) 17.1 % *HI* (05/31/18 5:10 AM) RDW [11.5-14.5 %] 9.5 fL (06/03/18 3:25 AM) 9.1 fL (06/02/18 8:26 AM) 8.9 fL (05/31/18 5:10 AM) MPV [7.4-10.4 fL] 198 K/CMM (06/03/18 3:25 AM) 232 K/CMM (06/02/18 8:26 AM) 218 K/CMM (05/31/18 5:10 AM) Platelet [133-450 K/CMM] 71.8 % (06/03/18 3:25 AM) 78.7 % *HI* (06/02/18 8:26 AM) 77.6 % *HI* (05/31/18 5:10 AM) Segs [45.0-75.0 %] 15.8 % *LOW* (06/03/18 3:25 AM) 11.3 % *LOW* (06/02/18 8:26 AM) 12.6 % *LOW* (05/31/18 5:10 AM) Lymphocytes [20.0-40.0 %] 6.4 % (06/03/18 3:25 AM) 5.1 % (06/02/18 8:26 AM) 5.6 % (05/31/18 5:10 AM) Monocytes [2.0-12.0 %] 5.4 % *HI* (06/03/18 3:25 AM) 4.4 % *HI* (06/02/18 8:26 AM) 3.9 % (05/31/18 5:10 AM) Eosinophils [0.0-4.0 %] 0.6 % (06/03/18 3:25 AM) 0.5 % (06/02/18 8:26 AM) 0.3 % (05/31/18 5:10 AM) Basophils [0.0-1.0 %] 5.5 K/CMM (06/03/18 3:25 AM) 5.8 K/CMM (06/02/18 8:26 AM) 6.8 K/CMM (05/31/18 5:10 AM) Neutrophils # [1.5-8.1 K/CMM] 1.2 K/CMM (06/03/18 3:25 AM) 0.8 K/CMM *LOW* (06/02/18 8:26 AM) 1.1 K/CMM (05/31/18 5:10 AM) Lymphocytes # [1.0-5.5 K/CMM] 0.5 K/CMM (06/03/18 3:25 AM) 0.4 K/CMM (06/02/18 8:26 AM) 0.5 K/CMM (05/31/18 5:10 AM) Monocytes # [0.0-0.8 K/CMM] 0.4 K/CMM (06/03/18 3:25 AM) 0.3 K/CMM (06/02/18 8:26 AM) 0.3 K/CMM (05/31/18 5:10 AM) Eosinophils # [0.0-0.5 K/CMM] Normal (05/30/18 5:53 AM) Normal (05/23/18 11:14 PM) RBC Morph Normal (05/30/18 5:53 AM) Plt Morph Slight *NA* (05/23/18 11:14 PM) Large Plt 13.9 seconds (05/24/18 8:09 AM) 12.9 seconds (05/17/18 3:45 PM) PT [12.0-14.7 seconds] 1.09 (05/24/18 8:09 AM) 0.99 (05/17/18 3:45 PM) INR [0.85-1.17] 30.1 seconds (05/24/18 8:09 AM) 27.5 seconds (05/17/18 3:45 PM) PTT [22.9-35.8 seconds] Microbiology Reports TEST: Culture: Urine STATUS: Auth (Verified) BODY SITE: SOURCE: Urine, Clean Catch COLLECTED DATE/TIME: 05/24/18 1:45 PM FINAL REPORT No Growth TEST: Culture: Respiratory w/Gram Stain STATUS: Auth (Verified) BODY SITE: SOURCE: Tracheal Aspirate COLLECTED DATE/TIME: 05/24/18 9:16 AM FINAL REPORT No Growth STAIN REPORT Gram Stain Performed By: [facility] Immunizations No data available for this section Procedures Procedure Date Related Diagnosis Body Site Status Cataract surgery Completed Hysterectomy Completed Operation Completed Operation Completed Repair of umbilical hernia Completed Tonsillectomy Completed Social History Social History Type Response Substance Abuse Use: None. Alcohol Never Smoking Status Never smoker; Exposure to Tobacco Smoke None; Cigarette Smoking Last 365 Days No; Reg Smoking Cessation Counseling No entered on: 05/23/18 Assessment and Plan Extracted from: Title: Progress Note Author: Kalpesh Madera MD Date: [...] continue to follow while in- house. Extracted from: Title: Consult Note Author: Acosta Lemos DO Date: [...] please perfectserve with any further questions. Extracted from: Title: OMFS Operative Report Author: Daysi Garibay DDS Date: 05/23/18 ORAL & MAXILLOFACIAL SURGERY OPERATIVE REPORT DATE OF SERVICE: 05/23/2018 PATIENT [...] frozen sections negative. PAST MEDICAL HISTORY, MEDICATIONS, & ALLERGIES: Reviewed. 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 She was deemed a candidate for the Privo neoadjuvant patch therapy clinical trial which was completed per protocol. Following completion, her surgery was planned. Her tumor was deemedamenable to resection with immediate reconstruction. The surgery was planned virtually with [employer] who fabricated a custom titanium plate and [...] patient was then prepped and draped in theusualsterile fashionfor the first part of the procedure - open tracheostomy. Two fingerbreadths superiorto the sternal notch was markedin the midlineand thecricoid cartilage was palpated.A 1.5 cm incision was performed through skin, subcutaneous tissue, through the fat to exposed the fascia. Using blunt dissection and electrocautery, dissection was continued layer by layer down to thetrachea. Encountered thyroid gland was cauterized.[employer] retractors were used for visualization and once the pretrachea fasia was reached, it was cleaned aside with kittners. The cricoid was identified and the cricoid hook was inserted. The 1st [id number] tracheal rings were exposed.Anesthesia was notified to [...] hemostasis. At this point, the table was [id number] degrees.Thenwe perfo rmed the direct laryngoscopy andprotected theteeth.Exam of the [...] protected. And thenidentified omohyoid muscle inferiorly and t he internal jugular vein. All the fibrofatty tissue of levels [...] well as intact without any violation.This partly completed neck dissection of levels 1A, 1B, 2A [...] Then at the planned osteotomy sites, the [facility] custom osteotomy guides were secured [...]
--- OUTSIDE RECORDS SUMMARY | 2018-11-04 20:38 | XMS REPORT ---
[facility] Address Unknown Phone Unavailable Care Team Providers Care Phosphoric Acid Operator Name Role Phone ABIGAIL CHO Unavailable Unavailable Problems This patient has no known problems. Allergies, Adverse Reactions, Alerts This patient has no known allergies or adverse reactions. Medications This patient has no known medications. Encounters Start Date/Time End Date/Time Encounter Type Admission Type Attending Clinicians Care Facility Care Department Encounter ID 2018-10-13 12:10:45 Outpatient [facility] [id number] 2018-08-24 11:58:54 Outpatient [facility] [id number] 2018-10-20 17:29:00 2018-10-20 17:29:00 Outpatient [facility] [id number] 2018-10-20 11:55:00 2018-10-20 11:55:00 Outpatient [facility] [id number] Results Test Description Test Time Test Comments Text Results Atomic Results Result Comments ABDOMEN-1VIEW (KUB) 2018-10-05 16:35:00 [place] [id number] Patient Name: ADAM CHAU MR #: [id number] : 1930 Age/Sex: 88/F Req #: [id number] Adm Physician: Ordered by: ABIGAIL CHO MD Report #: [id number] Location: [facility] Room/Bed: Procedure: [id number] DX/ABDOMEN-1VIEW (KUB) Exam Date: 10/05/18 Exam Time: 1420 REPORT STATUS: Signed Exam: KUB; 2 views History: History of renal ston es Comparison: 03/14/2018 Findings: Bowel gas pattern is nonspecific. No dilatation is seen. Moderate fecal material is present. No calcified renal stones are seen. Degenerative changes of the spine are moderate to severe. Impression: Nonspecific abdominal series. Signed by: Dr. Dimitri Chatman DO on 10/05/2018 4:37 PM Dictated By: DIMITRI CHATMAN DO 36 Transcribed By: LUCRETIA on 10/05/181636 COPY TO: ABIGAIL CHO MD ABDOMEN-1VIEW (KUB) 2018-03-14 13:39:00 [place] [id number] Patient Name: ADAM CHAU MR #: [id number] : 1930 Age/Sex: 88/F Req #: [id number] Adm Physician: Ordered by: ABIGAIL CHO MD Report #: [id number] Location: [facility] Room/Bed: Procedure: [id number] DX/ABDOMEN-1VIEW (KUB) Exam Date: 03/14/18 Exam Time: 1321 REPORT STATUS: Signed Exam: KUB. Clinical History: Calculus of kidney Comparison: CT scan April 28, 2013 Findings: Frontal view of the abdomen demonstrates a nonobstructive bowel gas pattern with moderate retained stool. There are no suspicious calcifications. No acute bone abnormality. Impression: No urinary tract calcifications are seen. Signed by: Dr. Remi Hurtado M.D. on 03/14/2018 1:41 PM Dictated By: REMI HURATDO MD, MD 1341 Transcribed By: LUCRETIA on 03/14/18 1341 COPY TO: ABIGAIL CHO MD ABDOMEN-1VIEW (KUB) 2017-12-07 11:53:00 [place] [id number] Patient Name: ADAM CHAU MR #: [id number] : 1930 Age/Sex: 87/F Req #: [id number] Adm Physician: Ordered by: ABIGAIL CHO MD Report #: [id number] Location: [facility] Room/Bed: Procedure: [id number] DX/ABDOMEN-1VIEW (KUB) Exam Date: 12/07/17 Exam Time: 1130 REPORT STATUS: Signed PROCEDURE: X-RAY ABDOMEN - KUB COMPARISON: Multiple prior abdominal radiographs, most recently 09/13/2017. INDICATIONS: CALCULUS OF KIDNEY FINDINGS: No dilated loops of bowel or abnormal air- fluid levels patterns. No evidence of pneumoperitoneum. No definite calcifications are seen overlying the urinary system. Small calcifications overlie the pelvis are stable and likely represent phleboliths. Severe multilevel degenerative changes of the lower lumbar spine, unchanged. CONCLUSION: Nonobstructive bowel gas pattern. No radiopaque renal or ureteral stones. Dictated by: Kathryn Delong M.D. on 12/07/2017 at 11:53 Electronically approved by: Kathryn Delong M.D. on 12/07/2017 at 11:53 Dictated By: KATHRYN DELONG MD 1153 Transcribed By: HANNAH on 12/07/17 1153 COPY TO: ABIGAIL CHO MD ABDOMEN-1VIEW (KUB) [place] [address] Patient Name: ADAM CHAU MR #: [id number] : 1930 Age/Sex: 87/F Req #: [id number] Adm Physician: Ordered by: ABIGAIL CHO MD Report #: [id number] Location: [facility] Room/Bed: Procedure: [id number] DX/ABDOMEN-1VIEW (KUB) Exam Date: 09/13/17 Exam Time: 1235 REPORT STATUS: Signed PROCEDURE: ABDOMEN-1VIEW (KUB) TECHNIQUE: Supine AP abdomen INDICATION: Calculus of kidney COMPARISON: [facility], DX, ABDOMEN-1VIEW (KUB), 11/25/2016, 11:09. FINDINGS: See conclusion. CONCLUSION: 1. No conspicuous calcifications overlying the kidneys or ureters. 2. Large volume of stool. Nonobstructive pattern. 3. Severe multilevel degenerative disc disease. Dictated by: Tracy Esteves M.D. on 09/13/2017 at 13:09 Electronically approved by: Tracy Esteves M.D. on 09/13/2017 at 13:09 Dictated By: TRACY ESTEVES MD 1309 Transcribed By: HANNAH on 09/13/17 1309 COPY TO: ABIGAIL CHO MD
[2018-11-04 20:59] LABS: BASOPHILS % 0.5 % (0.0-1.0); EOSINOPHILS # (AUTO) 0.1 (0.0-0.4); EOSINOPHILS % 1.7 % (0.0-6.0); HEMATOCRIT 30.6 % (34.2-44.1); HEMOGLOBIN 9.8 g/dL (12.0-16.0); LYMPHOCYTES # (AUTO) 1.1 (1.0-3.2); LYMPHOCYTES % 13.9 % (18.0-39.1); MEAN CORPUSCULAR HEMOGLOBIN 31.3 pg (28-32); MEAN CORPUSCULAR VOLUME 97.8 fL (81-99); MONOCYTES # (AUTO) 0.7 (0.2-0.8); MONOCYTES % 8.3 % (4.4-11.3); NEUTROPHILS # (AUTO) 5.9 (2.1-6.9); NEUTROPHILS % 75.1 % (38.7-80.0); PLATELET COUNT 206 x10e3/uL (140-360); RED BLOOD COUNT 3.13 x10e6/uL (3.6-5.1); RED CELL DISTRIBUTION WIDTH 16.8 % (11.7-14.4)
[2018-11-04 21:08] LABS: INR 1.17; PROTHROMBIN TIME 15.5 seconds (11.9-14.5)
[2018-11-04 21:09] LABS: PARTIAL THROMBOPLASTIN TIME 28.9 seconds (23.8-35.5)
[2018-11-04 21:15] LABS: ALANINE AMINOTRANSFERASE 7 IU/L (0-55); ALBUMIN 3.1 g/dL (3.5-5.0); ALKALINE PHOSPHATASE 79 IU/L (40-150); ANION GAP 14.7 mmol/L (8-16); BLOOD UREA NITROGEN 21 mg/dL (7-26); BUN/CREATININE RATIO 24 (6-25); CALCIUM 9.9 mg/dL (8.4-10.2); CARBON DIOXIDE 21 mmol/L (22-29); CHLORIDE 105 mmol/L (98-107); CREATININE, SERUM 0.87 mg/dL (0.57-1.11); EST GLOMERULAR FILTRATION RATE > 60 ML/MIN (60-); GLUCOSE 104 mg/dL (74-118); POTASSIUM 3.7 mmol/L (3.5-5.1); SODIUM 137 mmol/L (136-145)
[2018-11-04 21:33] LABS: BILIRUBIN,URINE NEGATIVE (NEGATIVE); CLARITY,URINE CLOUDY (CLEAR); COLOR,URINE RED (YELLOW); KETONES,URINE NEGATIVE (NEGATIVE); LEUKOCYTE ESTERASE ,URINE NEGATIVE (NEGATIVE); NITRITE,URINE NEGATIVE (NEGATIVE); URINE UROBILINOGEN 0.2 mg/dL (0.2 - 1)
[2018-11-04 21:39] LABS: PROTEIN,URINE DIPSTICK 3+ (NEGATIVE)
[2018-11-04 21:41] LABS: BACTERIA,URINE FEW /HPF; EPITHELIAL CELLS,URINE RARE /LPF; RBC,URINE >50 /HPF (0-5); WBC,URINE (MAN) 0-5 /HPF (0-5)
[2018-11-04] MEDS ORDERED: IOPAMIDOL 370 MG/ML 200 ML INFUS..BTL INJ ONE (22:04)
[2018-11-04] MEDS ORDERED: SODIUM CHLORIDE 0.9% 50ML 50 ML ONE (22:04)
--- NOTE | 2018-11-05 00:03 | Diagnostic Imaging Report ---
EXAM: CT Abdomen and Pelvis WITH contrast including delayed scan INDICATION: Blood in urine COMPARISON: Abdominal CT 06/09/2015. TECHNIQUE: Abdomen and pelvis were scanned utilizing a multidetector helical scanner from the lung base to the pubic symphysis after administration of IV contrast. Coronal and sagittal reformations were obtained. Scan was performed in supine position in portal venous phase and during excretory phase. IV CONTRAST: 100 mL of Isovue 370 ORAL CONTRAST: Water COMPLICATIONS: None RADIATION DOSE: Total DLP: 376 mGy*cm Estimated effective dose: (DLP x 0.015 x size factor) mSv CTDIvol has been reviewed. It is below the limits set by the Radiation Protocol Committee (RPC). FINDINGS: LINES and TUBES: None. LOWER THORAX: Unremarkable HEPATOBILIARY: No focal hepatic lesions. No biliary ductal dilation. GALLBLADDER: No radio-opaque stones or sludge. No wall thickening. SPLEEN: No splenomegaly. PANCREAS: Atrophy. No duct dilation. No mass. ADRENALS: No adrenal nodules KIDNEYS/URETERS: Kidneys: Normal appearance bilaterally. No hydronephrosis or perinephric stranding. Mild thinning of the renal parenchyma. Cyst: A few hypodensities are too small to characterize, likely benign.. Mass: None. Stones: None. Upper collecting systems: No irregularities or filling defects. Ureters: Fully opacified and normal in appearance. Bladder: No mass or filling defects. Mild circumferential bladder wall thickening. GI TRACT: No abnormal distention, wall thickening, or evidence of bowel obstruction. A few focal hyperdense objects in the intestines are likely pharmaceuticals. Colonic diverticuli. No evidence of diverticulitis. Moderate colonic stool burden. Appendix is normal. PELVIC ORGANS/BLADDER: The uterus is absent. No adnexal abnormalities. LYMPH NODES: No lymphadenopathy. VESSELS: There is mild atherosclerotic disease in the aorta and major arterial branches. PERITONEUM / RETROPERITONEUM: No free air or fluid. BONES: Bone island in the right ischium. Degenerative changes in the thoracic spine.. SOFT TISSUES: Stranding at the right inguinal canal is likely due to prior hernia repair. IMPRESSION: 1. Mild circumferential bladder wall thickening. Correlate for cystitis. Moderate colonic stool burden. Correlate for constipation. 2. Mild bilateral renal atrophy. No hydronephrosis or obstructing calculus. 3. Colonic diverticuli without diverticulitis. Signed by: Manoj Nelson DO on 11/05/2018 12:00 AM
[2018-11-05] MEDS ORDERED: MACROBID 100 M100 MG PO (00:12)
[2018-11-05 00:23] VITALS: BP 144/67
== END 2018-11-05 00:37 | disposition home or self-care (01) ==
LOC: ER 20:22
DX: R31.0 Gross hematuria (principal); I10 Essential (primary) hypertension; I48.91 Unspecified atrial fibrillation; E78.5 Hyperlipidemia, unspecified; Z86.718 Personal history of other venous thrombosis and embolism; Z96.653 Presence of artificial knee joint, bilateral
CPT/HCPCS: 36415; 74177; 80053; 81001; 85025; 85610; 85730; 87086; 99284; Q9967